=== PATIENT | female | born 1995 | race Caucasian/White ===

== ENCOUNTER 2019-12-23 18:47 | Inpatient (IN) | payer OTHER ==
[2019-12-23] MEDS ORDERED: DIPHTH,PERTUSS(ACELL),TET 0.5 ML DISP.SYRIN IM ONE ×2 (18:53→23:13)
--- NOTE | 2019-12-23 18:53 | PDOC ---
Rapid Medical Evaluation Time Seen by Provider: 12/23/19 18:49 Medical Evaluation: 12/23/19 18:49 I have performed a brief in-person evaluation of this patient. The patient presents with a chief complaint of: burn to R ankle/foot x 1 week Pertinent physical exam findings: large open blisters to R ankle with developing eschar, tachy to 127 I have ordered the following: tdap The patient will proceed to the ED for further evaluation. Discharge Disposition - Diagnosis Burn - Referrals - Patient Instructions - Post Discharge Activity
--- NOTE | 2019-12-23 22:03 | PDOC ---
*Physical Exam - Vital Signs Last Vital Signs Temp Pulse Resp BP Pulse Ox 99.3 F 127 H 20 112/72 100 12/23/19 18:57 12/23/19 18:57 12/23/19 18:57 12/23/19 18:57 12/23/19 18:57 ED Treatment Course - LABORATORY CBC & Chemistry Diagram: 12/23/19 22:15 12/23/19 22:15 Medical Decision Making - Medical Decision Making 12/23/19 22:03 Patient seen by the advanced practice provider under my supervision. Ancillary testing reviewed as necessary. I agree with plan as outlined by the advanced practice provider. Discharge - Discharge Information Problems reviewed: Yes Clinical Impression/Diagnosis: Burn Cellulitis Qualifiers: Site of cellulitis: extremity Site of cellulitis of extremity: lower extremity Laterality: right Qualified Code(s): L03.115 - Cellulitis of right lower limb Condition: Guarded - Follow up/Referral - Patient Discharge Instructions - Post Discharge Activity
[2019-12-23] MEDS ORDERED: CLINDAMYCIN 600MG PREMIX IVPB 600 MG/50 ML BAG IVPB ONE ×2 (22:08→23:13)
[2019-12-23] MEDS ORDERED: levETIRAcetam 500 MG TABLET (FP) PO ONE ×2 (22:10→23:13)
[2019-12-23] MEDS ORDERED: OXcarbazepine 300 MG/5 ML UNIT DOSE CUPS PO ONE (22:13)
--- NOTE | 2019-12-23 22:14 | PDOC ---
History of Present Illness - General Chief Complaint: SIRS, Suspected/Possible Stated Complaint: COLD SYMPTOMS/ BURN ON FEET Time Seen by Provider: 12/23/19 18:49 History Source: Patient Exam Limitations: No Limitations Past History - Travel Traveled outside of the country in the last 30 days: No Close contact w/someone who was outside of country & ill: No - Past Medical History Allergies/Adverse Reactions: Allergies Allergy/AdvReac Type Severity Reaction Status Date / Time No Known Allergies Allergy Verified 12/23/19 18:57 Home Medications: Ambulatory Orders Folic Acid - 1 mg PO DAILY 12/23/19 Levetiracetam [Keppra Xr -] 750 mg PO BID 12/23/19 Oxcarbazepine 600 mg PO DAILY 12/23/19 Oxcarbazepine 900 mg PO HS 12/23/19 Topiramate 100 mg PO DAILY 12/23/19 CVA: No COPD: No CHF: No Seizures: Yes - Psycho Social/Smoking Cessation Hx Smoking History: Never smoked Hx Alcohol Use: No Drug/Substance Use Hx: No Review of Systems - Review of Systems Able to Perform ROS?: Yes Comments:: 12/24/19 00:17 CONSTITUTIONAL: Absent: fever, chills, diaphoresis, generalized weakness, malaise, loss of appetite HEENT: Absent: rhinorrhea, nasal congestion, throat pain, throat swelling, difficulty swallowing, mouth swelling, ear pain, eye pain, visual Changes CARDIOVASCULAR: Absent: chest pain, loss of consciousness, palpitations, irregular heart rate, peripheral edema RESPIRATORY: Absent: cough, shortness of breath, dyspnea with exertion, orthopnea, wheezing, stridor, hemoptysis GASTROINTESTINAL: Absent: abdominal pain, abdominal distension, nausea, vomiting, diarrhea, constipation, melena, hematochezia GENITOURINARY: Absent: dysuria, frequency, urgency, hesitancy, hematuria, flank pain, genital pain MUSCULOSKELETAL: Present: Right foot pain absent: myalgia, arthralgia, joint swelling SKIN: Present: Burn absent: rash, itching, pallor HEMATOLOGIC/IMMUNOLOGIC: Absent: easy bleeding, easy bruising, lymphadenopathy, frequent infections ENDOCRINE: Absent: unexplained weight gain, unexplained weight loss, heat intolerance, cold intolerance NEUROLOGIC: Absent: headache, focal weakness or paresthesias, dizziness, unsteady gait, seizure, mental status changes, bladder or bowel incontinence PSYCHIATRIC: Absent: anxiety, depression, suicidal or homicidal ideation, hallucinations. Is the patient limited Bulgarian proficient: No *Physical Exam - Vital Signs Last Vital Signs Temp Pulse Resp BP Pulse Ox 99.3 F 127 H 20 112/72 100 12/23/19 18:57 12/23/19 18:57 12/23/19 18:57 12/23/19 18:57 12/23/19 18:57 - Physical Exam 12/24/19 00:17 GENERAL: Well developed, well nourished. Awake and alert. No acute distress. HEENT: Normocephalic, atraumatic. PERRLA, EOMI. No conjunctival pallor. Sclera are non- icteric. Moist mucous membranes. Oropharynx is clear. NECK: Supple. Full ROM. No JVD. Carotid pulses 2+ and symmetric, without bruits. No thyromegaly. No lymphadenopathy. CARDIOVASCULAR: Regular rate and rhythm. No murmurs, rubs, or gallops. Distal pulses are 2+ and symmetric. PULMONARY: No evidence of respiratory distress. Lungs clear to auscultation bilaterally. No wheezing, rales or rhonchi. ABDOMINAL: Soft. Non-tender. Non-distended. No rebound or guarding. No organomegaly. Normoactive bowel sounds. MUSCULOSKELETAL Normal range of motion at all joints. No bony deformities or tenderness. No CVA tenderness. EXTREMITIES: No cyanosis. No clubbing. No edema. No calf tenderness. SKIN: 3 cm round eschar formed area to the right lateral malleolus with overlying cellulitis. 3cm round ruptured blister to tothe plantar surface of the R foot again with overlying cellulitis. Patient also with multiple second-degree miles over the dorsal aspect of the right foot. The warm and dry. Normal capillary refill. No jaundice. NEUROLOGICAL: Alert, awake, appropriate. Cranial nerves 2-12 intact. No deficits to light touch and temperature in face, upper extremities and lower extremities. No motor deficits in the in face, upper extremities and lower extremities. Normoreflexic in the upper and lower extremities. Normal speech. Toes are down- going bilaterally. Gait is normal without ataxia. PSYCHIATRIC: Cooperative. Good eye contact. Appropriate mood and affect. ED Treatment Course - LABORATORY CBC & Chemistry Diagram: 12/23/19 22:15 12/23/19 22:15 Medical Decision Making - Medical Decision Making 12/24/19 00:24 Patient is a 24-year-old female with past medical history of epilepsy, presents to the ER today with pain to the right foot. She states approximately 1 week ago she dropped hot water on her foot while cooking. She did not seek medical attention at that time. She states that the foot has gotten more painful and it hurts to walk at this time. She notes that she also has multiple blisters on her foot that are draining. Denies fevers, chills, numbness and tingling and weakness to the affected extremity. A/P: Cellulitis/miles See exam findings for locations of the miles to her right foot. There is overlying cellulitis to the miles. Leukocytosis to 19. Clindamycin given in the ER. Patient on multiple seizure medications. X-ray shows no gas, potential osteo in the 1st metatarsal. Tetanus updated Admit for IV abx, wound care. Hospitalist paged. No PCP. Pt follow with neuro for her epilepsy Discharge - Discharge Information Problems reviewed: Yes Clinical Impression/Diagnosis: Burn Cellulitis Qualifiers: Site of cellulitis: extremity Site of cellulitis of extremity: lower extremity Laterality: right Qualified Code(s): L03.115 - Cellulitis of right lower limb Condition: Guarded - Admission Yes - Follow up/Referral - Patient Discharge Instructions - Post Discharge Activity
[2019-12-23 22:47] LABS: BASO % 0.3 % (0-2.0); EOS % 0.1 % (0-4.5); HEMATOCRIT 41.1 % (32.4-45.2); HEMOGLOBIN 13.9 GM/dL (10.7-15.3); LYMPH % 6.2 % (8-40); MCH 29.7 pg (25.7-33.7); MCHC 33.8 g/dl (32.0-36.0); MEAN CELL VOLUME 87.9 fl (80-96); MEAN PLT VOLUME 9.7 fl (7.5-11.1); MONO % 8.1 % (3.8-10.2); NEUT % 85.3 % (42.8-82.8); PLATELET COUNT 189 K/MM3 (134-434); RBC 4.68 M/mm3 (3.60-5.2); RDW 13.9 % (11.6-15.6); WHITE BLOOD COUNT 19.5 K/mm3 (4.0-10.0)
[2019-12-23] MEDS ORDERED: TOPIRAMATE 25 MG TABLET (FP) ONE (23:13)
[2019-12-23 23:36] LABS: ALBUMIN 4.2 g/dl (3.4-5.0); BILIRUBIN,TOTAL 0.6 mg/dL (0.2-1); BLOOD UREA NITROGEN 14.3 mg/dL (7-18); CALCIUM 9.6 mg/dL (8.5-10.1); CREATININE 0.7 mg/dL (0.55-1.3); POTASSIUM 3.9 mmol/L (3.5-5.1); TOT PROT 8.2 g/dl (6.4-8.2)
[2019-12-23 23:40] LABS: EPI CELLS 19.8 /HPF (0-5/HPF); HYALINE CASTS 66 /lpf (0-8); PH,URINE 5.5 (5.0-8.0); URINE APPEARANCE CLOUDY; URINE BACTERIA 63.1 /hpf (NEGATIVE); URINE BILIRUBIN NEGATIVE (NEGATIVE); URINE COLOR YELLOW; URINE GLUCOSE (UA) NEGATIVE (NEGATIVE); URINE KETONE 4+ (NEGATIVE); URINE LEUK ESTERASE 1+ (NEGATIVE); URINE NITRITE NEGATIVE (NEGATIVE); URINE PROTEIN 1+ (NEGATIVE); URINE RBC 2 /hpf (0-4); URINE UROBILINOGEN 0.2 mg/dL (0.2-1.0); URINE WBC 8 /hpf (0-5)
--- NOTE | 2019-12-24 01:25 | PN ---
Teaching Attending Note Name of Resident: Renita Vaughan ATTENDING PHYSICIAN STATEMENT I saw and evaluated the patient. I reviewed the resident's note and discussed the case with the resident. I agree with the resident's findings and plan as documented. SUBJECTIVE: 25-year-old woman with a history of epilepsy presenting after having dropped hot water on her right foot 2 weeks ago while cooking. Did not seek medical attention at that time, since then has developed blisters on her right ankle prompting her to seek medical attention. Her foot has gotten more painful since that time and is difficult for her to ambulate. Denied fevers or chills, numbness or tingling.Status post Tdap in the emergency room. OBJECTIVE: Last Vital Signs Temp Pulse Resp BP Pulse Ox 99.3 F 127 H 20 112/72 100 12/23/19 18:57 12/23/19 18:57 12/23/19 18:57 12/23/19 18:57 12/23/19 18:57 On physical exam patient was drowsy appearing but answering questions and following commands, right ankle was cellulitic with blisters, appeared to be third-degree miles from scald injury. Right lateral malleolus skin is eroded and soft tissues are visible, possibly bone. Multiple blisters are visible on right foot, cellulitis is evident. Diminished sensation over entire foot, DP pulse 2+. Able to move foot. Abnormal Lab Results 12/23/19 12/23/19 22:15 23:27 WBC 19.5 H Absolute Neuts (auto) 16.6 H Neutrophils % 85.3 H Lymphocytes % 6.2 L Urine Protein 1+ H Urine Ketones 4+ H Ur Leukocyte Esterase 1+ H Imaging studies reviewed ASSESSMENT AND PLAN: 24-year-old woman with sepsis secondary to scald injury to right foot from spilling boiling water. Suspect possible third-degree miles, should rule out underlying osteomyelitis as blisters appear deep and underlying soft tissues and possible bone are visible. Admit to [facility] Blood cultures x2 Follow-up official read of right foot x-ray Send ESR and CRP Start empiric antibiotic coverage with Zosyn and vancomycin Podiatry consult Infectious disease consult Send lactic acid Motrin for pain control #Seizure disorder Continue with home dose AEDsox carbamazepine, Keppra Exar, topiramate, Heparin subcutaneously for DVT prophylaxis. While patient was waiting in the emergency room she developed a fall from her stretcher, unwitnessed and hit her head. CT of head was ordered to rule out intracranial bleed. We will follow-up CT of head read. Will send antiepileptic drug levels as well as urine toxicology screen.
--- NOTE | 2019-12-24 01:55 | HP ---
CHIEF COMPLAINT: right foot wound PCP: none HISTORY OF PRESENT ILLNESS: 24 y.o. F H epilepsy presented for RLE wound. Patient states 2 weeks ago she was carrying a pot of boiling water when it fell onto her right foot. She has not been in significant pain but has been developing a wound on her R foot so decided to come to the hospital. Patient notes the wound has been increasing in size; she now has a wound on RLE lateral malleolus, RLE ventral 1st metatarsal, and a developing blister on the distal portion of her R great toe. She also has a small wound on the distal aspect of her left upper etxremity 1st digit. She has not taken any medications at home to help with the pain. Patient is able to ambulate. She is afebrile. ER course was notable for: (1) leukocytosis 19.5 (2)tachcyardia (3) Recent Travel: denies PAST MEDICAL HISTORY: epilepsy PAST SURGICAL HISTORY: denies Social History: Smoking: denies Alcohol:denies Drugs: denies Allergies No Known Allergies Allergy (Verified 12/23/19 18:57) HOME MEDICATIONS: Home Medications Medication Instructions Recorded Folic Acid - 1 mg PO DAILY 12/23/19 Levetiracetam [Keppra Xr -] 750 mg PO BID 12/23/19 Oxcarbazepine 600 mg PO DAILY 12/23/19 Oxcarbazepine 900 mg PO HS 12/23/19 Topiramate 100 mg PO DAILY 12/23/19 REVIEW OF SYSTEMS CONSTITUTIONAL: Absent: fever, chills, diaphoresis, generalized weakness, malaise, loss of appetite, weight change HEENT: Absent: rhinorrhea, nasal congestion, throat pain, throat swelling, difficulty swallowing, mouth swelling, ear pain, eye pain, visual changes CARDIOVASCULAR: Absent: chest pain, syncope, palpitations, irregular heart rate, lightheadedness , peripheral edema RESPIRATORY: Absent: cough, shortness of breath, dyspnea with exertion, orthopnea, wheezing, stridor, hemoptysis GASTROINTESTINAL: Absent: abdominal pain, abdominal distension, nausea, vomiting, diarrhea, constipation, melena, hematochezia GENITOURINARY: Absent: dysuria, frequency, urgency, hesitancy, hematuria, flank pain, genital pain MUSCULOSKELETAL: Absent: myalgia, arthralgia, joint swelling, back pain, neck pain SKIN: Absent: rash, itching, pallor HEMATOLOGIC/IMMUNOLOGIC: Absent: easy bleeding, easy bruising, lymphadenopathy, frequent infections ENDOCRINE: Absent: unexplained weight gain, unexplained weight loss, heat intolerance, cold intolerance NEUROLOGIC: Absent: headache, focal weakness or paresthesias, dizziness, unsteady gait, seizure, mental status changes, bladder or bowel incontinence PSYCHIATRIC: Absent: anxiety, depression, suicidal or homicidal ideation, hallucinations. PHYSICAL EXAMINATION Vital Signs - 24 hr 12/23/19 18:57 Temperature 99.3 F Pulse Rate 127 H Respiratory 20 Rate Blood Pressure 112/72 O2 Sat by Pulse 100 Oximetry (%) GENERAL: Awake, alert, and fully oriented, in no acute distress. HEENT: NCAT sclera clear MMM LUNGS: Breath sounds equal, clear to auscultation bilaterally. No wheezes, and no crackles. No accessory muscle use. HEART: tachycardic, normal S1 and S2 without murmurs ABDOMEN: Soft, nontender, not distended, + bowel sounds MUSCULOSKELETAL: Full ROM all joints EXTREMITIES: 2+ pulses intact b/l UE & LE. On R lateral malleolus, 1-2x3cm and 1 - 1z2cm wound, clear centers w/ blackened tissue surrounding edges, non purulent , slightly bloody drainage. On ventral R 1st metatarsal, 2-3 ~0.5cm wounds, non purulent non bloody. R 1st toe distal blister. On L 1st UE digit, distal healing wound noted, non bloody non purulent. NEURO: Decr sensation to RLE @ dorsal foot Laboratory Results - last 24 hr 12/23/19 12/23/19 12/23/19 22:15 22:15 23:27 WBC 19.5 H RBC 4.68 Hgb 13.9 Hct 41.1 MCV 87.9 MCH 29.7 MCHC 33.8 RDW 13.9 Plt Count 189 MPV 9.7 Absolute Neuts (auto) 16.6 H Neutrophils % 85.3 H Lymphocytes % 6.2 L Monocytes % 8.1 Eosinophils % 0.1 Basophils % 0.3 Nucleated RBC % 0 Sodium 136 Potassium 3.9 Chloride 103 Carbon Dioxide 23 Anion Gap 9 BUN 14.3 Creatinine 0.7 Est GFR (CKD-EPI)AfAm 138.59 Est GFR (CKD-EPI)NonAf 119.58 Random Glucose 104 Calcium 9.6 Total Bilirubin 0.6 AST 17 ALT 21 Alkaline Phosphatase 73 Total Protein 8.2 Albumin 4.2 Urine Color Urine Appearance Urine pH Ur Specific [place] Urine Protein Urine Glucose (UA) Urine Ketones Urine Blood Urine Nitrite Urine Bilirubin Urine Urobilinogen Ur Leukocyte Esterase Urine WBC (Auto) Urine RBC (Auto) Urine Casts (Auto) U Pathogenic Cast Auto U Epithel Cells (Auto) U Sm Round Cell (Auto) Urine Bacteria (Auto) Urine HCG, Qual Negative 12/23/19 23:27 WBC RBC Hgb Hct MCV MCH MCHC RDW Plt Count MPV Absolute Neuts (auto) Neutrophils % Lymphocytes % Monocytes % Eosinophils % Basophils % Nucleated RBC % Sodium Potassium Chloride Carbon Dioxide Anion Gap BUN Creatinine Est GFR (CKD-EPI)AfAm Est GFR (CKD-EPI)NonAf Random Glucose Calcium Total Bilirubin AST ALT Alkaline Phosphatase Total Protein Albumin Urine Color Yellow Urine Appearance Cloudy Urine pH 5.5 Ur Specific [place] 1.033 Urine Protein 1+ H Urine Glucose (UA) Negative Urine Ketones 4+ H Urine Blood Negative Urine Nitrite Negative Urine Bilirubin Negative Urine Urobilinogen 0.2 Ur Leukocyte Esterase 1+ H Urine WBC (Auto) 8 Urine RBC (Auto) 2 Urine Casts (Auto) 66 U Pathogenic Cast Auto Negative U Epithel Cells (Auto) 19.8 U Sm Round Cell (Auto) Negative Urine Bacteria (Auto) 63.1 Urine HCG, Qual ASSESSMENT/PLAN: 24 y.o .F H epilepsy presenting for R foot wound #Sepsis 2/2 RLE cellulitis -Afebrile, + leukocytosis, tachcyardic-- f/u AM labs, monitor hr -F/u R foot X-ray final read -no probe to bone -f/u RLE MRI to r/o osteomyelitis; f/u L hand XR -s/p 1 dose clindamycin; adding vanc, zosyn-- noted zosyn should be used cautiously w/ seizure disorder, benefits outweigh risks of this medication. Will monitor closely. -blood cultures sent -f/u wound culture -ESR, CRP elevated -RLE cleaned w/ saline, wrapped w/ kerlex -motrin for pain control -ID consulted-- Dr Ospina -Wound care consulted-- Dr. uGzman -podiatry #Epilepsy -continue home AEDs -seizure & fall precautions -f/u keppra, topiramate levels -patient had a fall in ED; ct head & c-spine negative #FEN -no fluids -replete lytes as needed -regular diet #DVT PPX -heparin sq #Dispo admit to med surg Visit type - Emergency Visit Emergency Visit: Yes ED Registration Date: 12/24/19 Care time: The patient presented to the Emergency Department on the above date and was hospitalized for further evaluation of their emergent condition. - New Patient This patient is new to me today: Yes Date on this admission: 12/24/19 - Critical Care Critical Care patient: No ATTENDING PHYSICIAN STATEMENT I saw and evaluated the patient. I reviewed the resident's note and discussed the case with the resident. I agree with the resident's findings and plan as documented. SUBJECTIVE: OBJECTIVE: ASSESSMENT AND PLAN:
[2019-12-24] MEDS ORDERED: IBUPROFEN 600 MG TABLET (FP) PO PRN (01:57)
[2019-12-24] MEDS ORDERED: CLINDAMYCIN 600MG PREMIX IVPB 600 MG/50 ML BAG IVPB SCH ×3 (03:00→10:00)
[2019-12-24 04:18] LABS: COCAINE, UR NEGATIVE ng/ml (CUTOFF=300); METHADONE, UR NEGATIVE ng/ml (CUTOFF=300); OPIATES, URI NEGATIVE ng/ml (CUTOFF=300); PHENCYCLIDINE,URINE NEGATIVE ng/ml (CUTOFF=25); URINE AMPHETAMINES NEGATIVE ng/ml (CUTOFF=500); URINE BARBITURATES NEGATIVE ng/ml (CUTOFF=200); URINE BENZODIAZEPINES NEGATIVE ng/ml (CUTOFF=200)
[2019-12-24] MEDS ORDERED: VANCOMYCIN 1 GM in D5W (PRE-DOCKED) 1,000 MG/250 ML IVPB SCH ×2 (05:00→22:00)
[2019-12-24] MEDS ORDERED: PIPERACILLIN/TAZOB 3.375 GM 3.375 GM/50 ML BAG IVPB ONE (05:18)
[2019-12-24] MEDS: PIPERACILLIN/TAZOB 3.375 GM 3.375 GM in DEXTROSE 5%-WATER - 50 ML IVPB SCH ×2 (05:24→09:45)
[2019-12-24 07:09] LABS: ALBUMIN 3.7 g/dl (3.4-5.0); BILIRUBIN,TOTAL 0.8 mg/dL (0.2-1); BLOOD UREA NITROGEN 11.9 mg/dL (7-18); CALCIUM 8.8 mg/dL (8.5-10.1); CREATININE 0.6 mg/dL (0.55-1.3); TOT PROT 7.3 g/dl (6.4-8.2)
[2019-12-24 07:11] LABS: BASO % 0.4 % (0-2.0); HEMATOCRIT 38.5 % (32.4-45.2); LYMPH % 7.3 % (8-40); MCH 29.2 pg (25.7-33.7); MCHC 33.7 g/dl (32.0-36.0); MEAN CELL VOLUME 86.8 fl (80-96); MEAN PLT VOLUME 9.9 fl (7.5-11.1); MONO % 8.6 % (3.8-10.2); NEUT % 83.7 % (42.8-82.8); PLATELET COUNT 159 K/MM3 (134-434); RBC 4.44 M/mm3 (3.60-5.2); RDW 13.4 % (11.6-15.6); WHITE BLOOD COUNT 18.4 K/mm3 (4.0-10.0)
[2019-12-24 07:36] LABS: POTASSIUM 2.9 mmol/L (3.5-5.1)
--- NOTE | 2019-12-24 08:09 | PN ---
Physical Exam: SUBJECTIVE: Patient seen and examined. Pt is very drowsy and sleepy. Mental status is poor but pt is AOx3. x1 episode of bilious vomit. Denies any seizures overnight. Denies f/c/sob/cp/abdominal pain. OBJECTIVE: Last Vital Signs Temp Pulse Resp BP Pulse Ox 98.9 F 78 17 115/75 98 12/24/19 07:03 12/24/19 07:03 12/24/19 07:03 12/24/19 07:03 12/24/19 07:03 GENERAL: Awake, alert, and fully oriented, appear very somnolent, decreased responsiveness, appears to sleep every few minutes, mental status poor. LUNGS: CTAB HEART: tachycardic, normal S1 and S2 without murmurs ABDOMEN: Soft, nontender, not distended, + bowel sounds EXTREMITIES: 2+ pulses intact b/l UE & LE. On R lateral malleolus, 1-2x3cm and 1 - 1z2cm wound, clear centers w/ blackened tissue surrounding edges, non purulent , slightly bloody drainage. On ventral R 1st metatarsal, 2-3 ~0.5cm wounds, non purulent non bloody. R 1st toe distal blister. On L 1st UE digit, distal healing wound noted, non bloody non purulent. NEURO: PERRLA, CN2-12 intact. Strength weak overall, sensation intact Laboratory Results - last 24 hr CBC,CMP WBC 18.4 K/mm3 (4.0-10.0) H 12/24/19 06:10 RBC 4.44 M/mm3 (3.60-5.2) 12/24/19 06:10 Hgb 13.0 GM/dL (10.7-15.3) 12/24/19 06:10 Hct 38.5 % (32.4-45.2) 12/24/19 06:10 MCV 86.8 fl (80-96) 12/24/19 06:10 MCH 29.2 pg (25.7-33.7) 12/24/19 06:10 MCHC 33.7 g/dl (32.0-36.0) 12/24/19 06:10 RDW 13.4 % (11.6-15.6) 12/24/19 06:10 Plt Count 159 K/MM3 (134-434) 12/24/19 06:10 MPV 9.9 fl (7.5-11.1) 12/24/19 06:10 Absolute Neuts (auto) 15.4 K/mm3 (1.5-8.0) H 12/24/19 06:10 Neutrophils % 83.7 % (42.8-82.8) H 12/24/19 06:10 Lymphocytes % 7.3 % (8-40) L 12/24/19 06:10 Monocytes % 8.6 % (3.8-10.2) 12/24/19 06:10 Eosinophils % 0.0 % (0-4.5) D 12/24/19 06:10 Basophils % 0.4 % (0-2.0) 12/24/19 06:10 Nucleated RBC % 0 % (0-0) 12/24/19 06:10 ESR 70 mm/hr (0-20) H 12/24/19 02:33 Sodium 133 mmol/L (136-145) L 12/24/19 06:10 Potassium 2.9 mmol/L (3.5-5.1) L* 12/24/19 06:10 Chloride 102 mmol/L (98-107) 12/24/19 06:10 Carbon Dioxide 21 mmol/L (21-32) 12/24/19 06:10 Anion Gap 9 MMOL/L (8-16) 12/24/19 06:10 BUN 11.9 mg/dL (7-18) 12/24/19 06:10 Creatinine 0.6 mg/dL (0.55-1.3) 12/24/19 06:10 Est GFR (CKD-EPI)AfAm 145.80 12/24/19 06:10 Est GFR (CKD-EPI)NonAf 125.80 12/24/19 06:10 Random Glucose 138 mg/dL (74-106) H 12/24/19 06:10 Lactic Acid 0.9 mmol/L (0.4-2.0) 12/24/19 02:33 Calcium 8.8 mg/dL (8.5-10.1) 12/24/19 06:10 Total Bilirubin 0.8 mg/dL (0.2-1) 12/24/19 06:10 AST 12 U/L (15-37) L 12/24/19 06:10 ALT 21 U/L (13-61) 12/24/19 06:10 Alkaline Phosphatase 66 U/L (45-117) 12/24/19 06:10 C-Reactive Protein 16.8 MG/DL (0.00-0.3) H 12/24/19 02:33 Total Protein 7.3 g/dl (6.4-8.2) 12/24/19 06:10 Albumin 3.7 g/dl (3.4-5.0) 12/24/19 06:10 Active Medications Current Medications Bacitracin (Bacitracin -) 1 applic TP DAILY [facility] Folic Acid (Folic Acid -) 1 mg PO DAILY [facility] Piperacillin Sod/Tazobactam (Sod 3.375 gm/ Dextrose) 50 mls @ 100 mls/hr IVPB Q6H-IV [facility]; Protocol Stop: 12/24/19 21:29 Last Admin: 12/24/19 05:24 Dose: 100 mls/hr Piperacillin Sod/Tazobactam (Sod 3.375 gm/ Dextrose) 50 mls @ 100 mls/hr IVPB Q6H-IV [facility]; Protocol Potassium Chloride 30 meq/ (Sodium Chloride) 1,015 mls @ 100 mls/hr IVPB ASDIR [facility] Ibuprofen (Motrin -) 600 mg PO Q4H PRN PRN Reason: FEVER Levetiracetam (Keppra Xr -) 750 mg PO BID [facility] Oxcarbazepine (Trileptal -) 600 mg PO DAILY [facility] Oxcarbazepine (Trileptal -) 900 mg PO HS [facility] Potassium Chloride (K-Dur -) 40 meq PO ONCE ONE Stop: 12/24/19 07:57 Silver Sulfadiazine (Silvadene -) 1 applic TP DAILY [facility] Topiramate (Topamax -) 100 mg PO DAILY [facility] Vancomycin HCl (Vancomycin (Pre-Docked)) 1,000 mg IVPB Q24H [facility]; Protocol Home Medications Medication Instructions Recorded Folic Acid - 1 mg PO DAILY 12/23/19 Levetiracetam [Keppra Xr -] 750 mg PO BID 12/23/19 Oxcarbazepine 600 mg PO DAILY 12/23/19 Oxcarbazepine 900 mg PO HS 12/23/19 Topiramate 100 mg PO DAILY 12/23/19 ASSESSMENT/PLAN: 24 y/o F PMH epilepsy presented to the ED c/o of right foot wounds 2/2 to dropping hot boiling water on herself is admitted for sepsis vs meningitis r/o #Sepsis likely 2/2 RLE cellulitis Febrile, + leukocytosis+ tachcyardic Pt is somnolent and very drowsy need to r/o meningitis, no nuchal rigidity on exam LP done- CSF cultures negative for meningitis R foot X-ray final read- soft tissue swelling, no signs of air. RLE MRI to r/o osteomyelitis L hand XR- no acute findings Seizure precautions neuro checks EEG ordered TANNA, Chlam/GC ordered EBV, HCV, HIV, Flu, LDH, RPR, RA factor Urine legionella Lipase ordered Vanc + Ceftriaxone + Clindamycin+ Acyclovir Dexamethasone 10 once LR at 125 blood cultures- one bottle positive gram+ cocci in chains f/u wound culture ESR elevated RLE cleaned w/ saline, wrapped w/ kerlex ID consulted-- Dr Ospina appreciated consult Wound care consulted-- Dr. Guzman Podiatry ICU consulted Neuro consulted- Discussed with Dr. Lane, recom low suspicion for meningitis. Will work up for likely causes such as autoimmune or thyroid disease #Epilepsy continue home AEDs- Keppra seizure & fall precautions f/u keppra, topiramate levels #Hypokalemia KCl repletion BMP for 6 pm- f/u #Low TSH Free T4 and T3 ordered- will f/u #N/v bilious vomit Protonix 40 IV Zofran 4 mg now- if still nauseous can icnrease to Zofran 8mg, if still nauseous consider Reglan. Abd CT pending #FEN LR 125 replete lytes as needed NPO #DVT PPX #Dispo monitor overnight in ICU, monitor mental status, cont abx, cont keppra, f/u with pt's family Discussed with Pt's friends but will wait for her for update of her status Marely- [phone] Visit type - Emergency Visit Emergency Visit: Yes ED Registration Date: 12/24/19 Care time: The patient presented to the Emergency Department on the above date and was hospitalized for further evaluation of their emergent condition. - New Patient This patient is new to me today: Yes Date on this admission: 12/24/19 - Critical Care Critical Care patient: No - Discharge Referral Referred to [facility] No ATTENDING PHYSICIAN STATEMENT I saw and evaluated the patient. I reviewed the resident's note and discussed the case with the resident. I agree with the resident's findings and plan as documented. SUBJECTIVE: OBJECTIVE: ASSESSMENT AND PLAN:
[2019-12-24] MEDS ORDERED: POTASSIUM CHLORIDE TABS 20 MEQ TABLET.ER (FP) PO ONE ×2 (08:30→09:10)
[2019-12-24] MEDS ORDERED: POTASSIUM CHLORIDE 30 MEQ in SODIUM CHLORIDE 1,000 ML IVPB SCH (09:00)
[2019-12-24] MEDS ORDERED: ACETAMINOPHEN 1000 MG/100 ML VIAL (NON FORMULARY) IVPB ONE (09:37)
[2019-12-24] MEDS ORDERED: ACETAMINOPHEN INJECTION 100 ML IVPB ONE (09:49)
[2019-12-24] MEDS ORDERED: CLINDAMYCIN PHOSPHATE 600 MG/4 ML VIAL ONE (09:49)
[2019-12-24] MEDS ORDERED: TOPIRAMATE 100 MG TABLET PO SCH (10:00)
[2019-12-24] MEDS ORDERED: levETIRAcetam XR 750 MG TAB PO SCH (10:00)
[2019-12-24] MEDS ORDERED: OXcarbazepine 300 MG TABLET (UD) PO SCH ×2 (10:00→22:00)
[2019-12-24] MEDS ORDERED: CEFTRIAXONE 2 GM-D5W BAG 2 GM/50 ML BAG IVPB SCH (10:00)
[2019-12-24] MEDS ORDERED: BACITRACIN 15 GM TUBE TOPICAL OINTMENT TP SCH (10:00)
[2019-12-24] MEDS ORDERED: FOLIC ACID 1 MG TABLET (FP) PO SCH (10:00)
[2019-12-24] MEDS: SILVER SULFADIAZINE 1% TOP CREAM 50 GM JAR TP SCH (11:16)
--- NOTE | 2019-12-24 11:36 | CONSULT ---
Consult - text type - Consultation Consultation Note: 24 y/o female seen in the ER with complaint of spiling hot boiling water on foot roughly 1-2 weeks ago. History taken from chart as patient is not communicable at this time. Per Resident patient presented yesterday with complaints of the burn. Grossly non verbal at this time. O: Right foot with mild erythema surrounding escars on the lateral aspect of the foot, there is christina seropurlent drainage from a superficial healing ulceration on plantar aspect, no signs of abscess, no streaking, no gross redness xrays: no signs of gas in the soft tissue A: s/p miles right foot; healing eschar Mild cellultiis P: Evaluated and reviewed discussed with resident; I doubt overall symptoms is from the foot xrays negative for any acute findings can get MR is symptoms persist Would swap to vanc/zosyn for more empiric coverage if worried of infection from the foot consult ID wound redressed with xeroform to all burn sites Silvadene ordered; once available can start silvadene/adaptic/dsd to the foot daily. Will follow.
[2019-12-24 11:57] LABS: MAGNESIUM 1.9 mg/dL (1.8-2.4)
[2019-12-24] MEDS ORDERED: levETIRAcetam 250 MG TABLET PO ONE (12:15)
[2019-12-24] MEDS ORDERED: SODIUM CHLORIDE 1,973 ML IV ONE (12:27)
[2019-12-24] MEDS ORDERED: MAGNESIUM 1GM/D5W - 1 GM/100 ML IVPB IVPB ONE (12:45)
[2019-12-24] MEDS ORDERED: levETIRAcetam 500 MG/5 ML INJECTION VIAL IVPB ONE ×2 (12:45→13:06)
[2019-12-24] MEDS ORDERED: DEXAMETHASONE SOD PHOSPHATE 10 MG/1 ML VIAL IVPUSH ONE (12:47)
[2019-12-24] MEDS ORDERED: CEFTRIAXONE 2 GM/100 ML BAG IVPB ONE (13:07)
--- NOTE | 2019-12-24 13:42 | PDOC ---
*Physical Exam - Vital Signs Last Vital Signs Temp Pulse Resp BP Pulse Ox 102.0 F H 78 17 115/75 98 12/24/19 09:45 12/24/19 07:03 12/24/19 07:03 12/24/19 07:03 12/24/19 07:03 ED Treatment Course - LABORATORY CBC & Chemistry Diagram: 12/24/19 06:10 12/24/19 06:10 - ADDITIONAL ORDERS Additional order review: 12/23/19 22:15 Blood Culture - Preliminary Blood - Peripheral Venous Pending Organism 12/23/19 22:15 RBC 4.68 MCV 87.9 MCHC 33.8 RDW 13.9 MPV 9.7 Neutrophils % 85.3 H Lymphocytes % 6.2 L Monocytes % 8.1 Eosinophils % 0.1 Basophils % 0.3 - Medications Given in the ED: ED Medications Discontinued Medications Generic Name Dose Route Start Last Admin Trade Name Freq PRN Reason Stop Dose Admin Acetaminophen 1,000 mg 12/24/19 09:37 12/24/19 09:58 Ofirmev Injection - IVPB 12/24/19 09:38 1,000 mg ONCE ONE Administration Bacitracin 1 applic 12/24/19 10:00 12/24/19 11:16 Bacitracin - TP 1 applic DAILY WALTER Administration Diphtheria/Tetanus/Acell Pertussis 0.5 ml 12/23/19 18:53 12/23/19 23:28 Boostrix - IM 12/23/19 18:54 0.5 ml .ONCE ONE Administration Folic Acid 1 mg 12/24/19 10:00 12/24/19 11:16 Folic Acid - PO 1 mg DAILY WALTER Administration Clindamycin Phosphate 600 mg in 50 mls @ 100 mls/hr 12/23/19 22:08 12/23/19 23:27 Cleocin 600 Mg Premix Ivpb - IVPB 12/23/19 22:37 100 mls/hr ONCE ONE Administration Piperacillin Sod/Tazobactam 50 mls @ 100 mls/hr 12/24/19 04:00 12/24/19 09:45 Sod 3.375 gm/ Dextrose IVPB 12/24/19 21:29 Not Given Q6H-IV WALTER Protocol Potassium Chloride 30 meq/ 1,015 mls @ 100 mls/hr 12/24/19 09:00 12/24/19 10: 30 Sodium Chloride IVPB 100 mls/hr Q10H WALTER Administration Clindamycin Phosphate 600 mg in 50 mls @ 100 mls/hr 12/24/19 09:30 12/24/19 10:45 Cleocin 600 Mg Premix Ivpb - IVPB 100 mls/hr Q6H-IV WALTER Administration Protocol Levetiracetam 750 mg 12/23/19 22:10 12/23/19 23:27 Keppra - PO 12/23/19 22:11 Not Given ONCE ONE Levetiracetam 750 mg 12/24/19 10:00 12/24/19 11:16 Keppra Xr - PO 750 mg BID WALTER Administration Levetiracetam 750 mg 12/24/19 12:15 12/24/19 13:33 Keppra - PO 12/24/19 12:16 Not Given ONCE ONE Levetiracetam 1,000 mg 12/24/19 12:45 12/24/19 13:25 Keppra Injection - IVPB 12/24/19 12:46 1,000 mg ONCE ONE Administration Oxcarbazepine 900 mg 12/23/19 22:13 12/23/19 23:28 Trileptal PO 12/23/19 22:14 Not Given ONCE ONE Potassium Chloride 40 meq 12/24/19 08:30 12/24/19 09:15 K-Dur - PO 12/24/19 08:31 40 meq ONCE ONE Administration Vancomycin HCl 1,000 mg 12/24/19 05:00 12/24/19 05:52 Vancomycin (Pre-Docked) IVPB 12/24/19 05:01 1,000 mg Q24H WALTER Administration Protocol Medical Decision Making - Medical Decision Making 12/24/19 13:40 LP done for worsening mental status and concern for meningitis. Patient admitted. Inpatient team aware. Discharge - Discharge Information Problems reviewed: Yes Clinical Impression/Diagnosis: Burn Cellulitis Qualifiers: Site of cellulitis: extremity Site of cellulitis of extremity: lower extremity Laterality: right Qualified Code(s): L03.115 - Cellulitis of right lower limb AMS (altered mental status) Qualifiers: Altered mental status type: unspecified Qualified Code(s): R41.82 - Altered mental status, unspecified Condition: Guarded - Admission Yes - Follow up/Referral - Patient Discharge Instructions - Post Discharge Activity Procedures - Lumbar Puncture Indication: Meningitis CT Scan: Yes Betadine Prep: No (Chlorhexidine) Position: Right lateral decubitus Site: L4-L51 Local Anesthesia: 1% Lidocaine with epi Volume(ml): 5 Lumbar Puncture Kit: Adult Opening Pressure(mmHg): 19 Traumatic Tap: Yes Tubes Obtained: 4 Clear Fluid: Yes Complications: No
--- NOTE | 2019-12-24 13:50 | PN ---
Teaching Attending Note Name of Resident: John Mclean ATTENDING PHYSICIAN STATEMENT I saw and evaluated the patient. I reviewed the resident's note and discussed the case with the resident. I agree with the resident's findings and plan as documented. Patient experienced interval decompensation this morning with markedly altered mental status still responsive to painful stimuli but awake alert and oriented only to 1. She did not have positive meningeal signs but was persistently tachycardic and running low-grade fevers. Due to this, LP was completed by ER staff. Opening pressures reported to me as normal and CSF was clear, pending studies. Empiric meningitis coverage is started and the case was discussed with infectious disease. We feel that due to the patient's mental status and risk of severe illness with potential bacteremia versus contamination with 1 out of 2 tubes of blood cultures positive for gram-positive cocci, we will go ahead and transfer to the ICU if accepted after evaluation. She was given dexamethasone per meningitis protocol. She has 2 peripheral IVs. She is hemodynamically stable in terms of her blood pressure but this could become tenuous if indeed the sepsis worsens. Furthermore we will expound upon the overall work-up with ID work-up as well as baseline neurologic labs as well as assessing her endocrine function and for underlying autoimmune disease. Could not attempt to review of systems due to her underlying mentation VS, labs, imaging reviewed NAD, AAOx1,Slightly toxic appearing RRR s1/2 no mgr Normal muscle tone, moves all 5 extremities with normal apparent strength, Responds to painful stimuli but not verbal stimuli and is lethargic Neck is supple, trachea midline, no moe LN Lungs CTAB with sym expansion NT ND +BS no moe organomegaly CN2-12 wnl; no FND NC AT EOMI PERRLA Due to mentation psychological assessment could not be completed Foot cellulitis appears relatively mild, noted podiatry input UA results noted, follow-up culture. May be due to dehydration Canceling MRI of the foot, no free air on x-ray. Low risk for cellulitis and ESR may have other etiology especially given neurologic function. If symptoms persist we can go ahead and reimage once she is stable Microbiology 12/23/19 22:15 Blood Culture - Preliminary Blood - Peripheral Venous Pending Organism Laboratory Tests 12/23/19 12/23/19 12/23/19 22:15 22:15 23:27 WBC 19.5 H RBC 4.68 Hgb 13.9 Hct 41.1 MCV 87.9 MCH 29.7 MCHC 33.8 RDW 13.9 Plt Count 189 MPV 9.7 Absolute Neuts (auto) 16.6 H Neutrophils % 85.3 H Lymphocytes % 6.2 L Monocytes % 8.1 Eosinophils % 0.1 Basophils % 0.3 Nucleated RBC % 0 ESR Sodium 136 Potassium 3.9 Chloride 103 Carbon Dioxide 23 Anion Gap 9 BUN 14.3 Creatinine 0.7 Est GFR (CKD-EPI)AfAm 138.59 Est GFR (CKD-EPI)NonAf 119.58 Random Glucose 104 Lactic Acid Calcium 9.6 Phosphorus Magnesium Total Bilirubin 0.6 AST 17 ALT 21 Alkaline Phosphatase 73 C-Reactive Protein Total Protein 8.2 Albumin 4.2 Urine Color Urine Appearance Urine pH Ur Specific [place] Urine Protein Urine Glucose (UA) Urine Ketones Urine Blood Urine Nitrite Urine Bilirubin Urine Urobilinogen Ur Leukocyte Esterase Urine WBC (Auto) Urine RBC (Auto) Urine Casts (Auto) U Pathogenic Cast Auto U Epithel Cells (Auto) U Sm Round Cell (Auto) Urine Bacteria (Auto) Urine HCG, Qual Negative Opiates Screen Methadone Screen Barbiturate Screen Phencyclidine Screen Ur Amphetamines Screen MDMA (Ecstasy) Screen Benzodiazepines Screen Cocaine Screen U Marijuana (THC) Screen 12/23/19 12/24/19 12/24/19 23:27 02:33 02:33 WBC RBC Hgb Hct MCV MCH MCHC RDW Plt Count MPV Absolute Neuts (auto) Neutrophils % Lymphocytes % Monocytes % Eosinophils % Basophils % Nucleated RBC % ESR 70 H Sodium Potassium Chloride Carbon Dioxide Anion Gap BUN Creatinine Est GFR (CKD-EPI)AfAm Est GFR (CKD-EPI)NonAf Random Glucose Lactic Acid Calcium Phosphorus Magnesium Total Bilirubin AST ALT Alkaline Phosphatase C-Reactive Protein 16.8 H Total Protein Albumin Urine Color Yellow Urine Appearance Cloudy Urine pH 5.5 Ur Specific [place] 1.033 Urine Protein 1+ H Urine Glucose (UA) Negative Urine Ketones 4+ H Urine Blood Negative Urine Nitrite Negative Urine Bilirubin Negative Urine Urobilinogen 0.2 Ur Leukocyte Esterase 1+ H Urine WBC (Auto) 8 Urine RBC (Auto) 2 Urine Casts (Auto) 66 U Pathogenic Cast Auto Negative U Epithel Cells (Auto) 19.8 U Sm Round Cell (Auto) Negative Urine Bacteria (Auto) 63.1 Urine HCG, Qual Opiates Screen Methadone Screen Barbiturate Screen Phencyclidine Screen Ur Amphetamines Screen MDMA (Ecstasy) Screen Benzodiazepines Screen Cocaine Screen U Marijuana (THC) Screen 12/24/19 12/24/19 12/24/19 02:33 03:34 06:10 WBC 18.4 H RBC 4.44 Hgb 13.0 Hct 38.5 MCV 86.8 MCH 29.2 MCHC 33.7 RDW 13.4 Plt Count 159 MPV 9.9 Absolute Neuts (auto) 15.4 H Neutrophils % 83.7 H Lymphocytes % 7.3 L Monocytes % 8.6 Eosinophils % 0.0 D Basophils % 0.4 Nucleated RBC % 0 ESR Sodium Potassium Chloride Carbon Dioxide Anion Gap BUN Creatinine Est GFR (CKD-EPI)AfAm Est GFR (CKD-EPI)NonAf Random Glucose Lactic Acid 0.9 Calcium Phosphorus Magnesium Total Bilirubin AST ALT Alkaline Phosphatase C-Reactive Protein Total Protein Albumin Urine Color Urine Appearance Urine pH Ur Specific [place] Urine Protein Urine Glucose (UA) Urine Ketones Urine Blood Urine Nitrite Urine Bilirubin Urine Urobilinogen Ur Leukocyte Esterase Urine WBC (Auto) Urine RBC (Auto) Urine Casts (Auto) U Pathogenic Cast Auto U Epithel Cells (Auto) U Sm Round Cell (Auto) Urine Bacteria (Auto) Urine HCG, Qual Opiates Screen Negative Methadone Screen Negative Barbiturate Screen Negative Phencyclidine Screen Negative Ur Amphetamines Screen Negative MDMA (Ecstasy) Screen Negative Benzodiazepines Screen Negative Cocaine Screen Negative U Marijuana (THC) Screen Negative 12/24/19 06:10 WBC RBC Hgb Hct MCV MCH MCHC RDW Plt Count MPV Absolute Neuts (auto) Neutrophils % Lymphocytes % Monocytes % Eosinophils % Basophils % Nucleated RBC % ESR Sodium 133 L Potassium 2.9 L* Chloride 102 Carbon Dioxide 21 Anion Gap 9 BUN 11.9 Creatinine 0.6 Est GFR (CKD-EPI)AfAm 145.80 Est GFR (CKD-EPI)NonAf 125.80 Random Glucose 138 H Lactic Acid Calcium 8.8 Phosphorus 3.0 Magnesium 1.9 Total Bilirubin 0.8 AST 12 L ALT 21 Alkaline Phosphatase 66 C-Reactive Protein Total Protein 7.3 Albumin 3.7 Urine Color Urine Appearance Urine pH Ur Specific [place] Urine Protein Urine Glucose (UA) Urine Ketones Urine Blood Urine Nitrite Urine Bilirubin Urine Urobilinogen Ur Leukocyte Esterase Urine WBC (Auto) Urine RBC (Auto) Urine Casts (Auto) U Pathogenic Cast Auto U Epithel Cells (Auto) U Sm Round Cell (Auto) Urine Bacteria (Auto) Urine HCG, Qual Opiates Screen Methadone Screen Barbiturate Screen Phencyclidine Screen Ur Amphetamines Screen MDMA (Ecstasy) Screen Benzodiazepines Screen Cocaine Screen U Marijuana (THC) Screen
--- NOTE | 2019-12-24 14:00 | PN ---
Progress Note (short form) - Note Progress Note: ID consult dictated 24 yo female presented to ED with one week of foot pain and erythema after dropping boiling water on her leg 2 weeks ago noted to have elevated WBC on admission, tachycardia she received vancomycin, clindamycin overnight she has become more lethargic still responsive but quite sleepy denies headache or neck pain given her progressive lethargy she just underwent an LP in the ED- OP normal, clear csf- awaiting cell count and gram stain seen after the LP was done just received steroids/ceftriaxone blood culture one bottle gpc chains! strep bacteremia-?skin source, ?meningitis r/o meningitis-no nuchal rigidity on exam droplet isolation for possible meningitis vancomycin/rocephin/acyclovir/clindamycin csf studies pending HIV testing IV hydration icu for monitoring neurology evaluation-seizure lucitay d/w hospitalist dr dickson
[2019-12-24 14:07] LABS: BF GLUCOSE (CSF ONLY) 82 mg/dL (40-70)
--- NOTE | 2019-12-24 14:12 | EKG ---
Test Reason : Blood Pressure : / mmHG Vent. Rate : 122 BPM Atrial Rate : 122 BPM P-R Int : 132 ms QRS Dur : 076 ms QT Int : 306 ms P-R-T Axes : 046 058 051 degrees QTc Int : 436 ms SINUS TACHYCARDIA OTHERWISE NORMAL ECG WHEN COMPARED WITH ECG OF 24-DEC-2019 01:51, NO SIGNIFICANT CHANGE WAS FOUND Confirmed by QUIANA NUNES MD ([id number]) on 12/24/2019 2:11:59 PM Referred By: Confirmed By:QUIANA NUNES MD
[2019-12-24] MEDS: LACTATED RINGERS SOLUTION 1,000 ML/1,000 ML INFUS.BAG IV SCH (14:13)
[2019-12-24] MEDS: KCL 10 MEQ IVPB 10 MEQ/100 ML INFUS.BAG IVPB SCH ×3 (14:13→17:34)
--- NOTE | 2019-12-24 14:14 | EKG ---
Test Reason : Blood Pressure : / mmHG Vent. Rate : 117 BPM Atrial Rate : 117 BPM P-R Int : 128 ms QRS Dur : 080 ms QT Int : 306 ms P-R-T Axes : 057 072 054 degrees QTc Int : 426 ms SINUS TACHYCARDIA OTHERWISE NORMAL ECG NO PREVIOUS ECGS AVAILABLE Confirmed by QUIANA NUNES MD ([id number]) on 12/24/2019 2:13:52 PM Referred By: Confirmed By:QUIANA NUNES MD
[2019-12-24 14:26] LABS: CSF APPEARANCE CLEAR; CSF COLOR COLORLESS
[2019-12-24 14:31] LABS: CSF WBC 0
[2019-12-24 14:38] LABS: CSF APPEARANCE CLEAR; CSF COLOR COLORLESS; CSF WBC 0
[2019-12-24] MEDS ORDERED: KCL 10 MEQ IVPB 10 MEQ/100 ML INFUS.BAG IVPB ONE ×2 (14:48→16:13)
[2019-12-24] MEDS ORDERED: ACYCLOVIR INJECTION 500 MG in DEXTROSE 5%-WATER - 100 ML IVPB SCH (15:00)
[2019-12-24] MEDS ORDERED: ACYCLOVIR INJECTION 650 MG in DEXTROSE 5%-WATER - 100 ML IVPB SCH (15:00)
[2019-12-24] MEDS ORDERED: ONDANSETRON 4 MG/2 ML VIAL IVPUSH ONE (15:09)
[2019-12-24] MEDS: PANTOPRAZOLE SODIUM 40 MG VIAL IVPUSH SCH (15:23)
[2019-12-24] MEDS ORDERED: ONDANSETRON 4 MG/2 ML VIAL ONE (15:24)
[2019-12-24] MEDS ORDERED: PANTOPRAZOLE SODIUM 40 MG VIAL ONE (15:24)
--- NOTE | 2019-12-24 15:46 | CONS ---
DATE OF CONSULTATION: DATE OF DICTATION: 12/24/2019 INFECTIOUS DISEASE CONSULTATION HISTORY OF PRESENT ILLNESS: This is a 24-year-old woman who comes to the ER. She has a history of a seizure disorder. She said 2 weeks ago she was carrying some boiling water in a pot and it fell on her foot. She developed a wound that increasing in size and is painful, and she came to the ER. She has a small wound on her 1st digit of her left hand, and she has a wound on the right lateral malleolus as well as the metatarsal in her big toe. White count was noted to be 19,000, and she was quite tachycardic. HOSPITAL COURSE: Her hospital course, she was admitted overnight. She was given clindamycin and vancomycin. She was noted to become more somnolent overnight. This morning she was noted to have fever of 102, and given her lethargy, she just underwent a spinal tap in the ER with normal opening pressure and clear CSF. Results are pending. She just received steroids, ceftriaxone. Blood cultures, 1 bottle is growing gram-positive cocci in chains. I am asked to see her for further evaluation. Much of the history is from the chart. She has family members present but who do not speak Danish well. The patient reports that she is from [place]. She denies any recent travel. PAST MEDICAL HISTORY: She has a past medical history of seizure disorder. She never had any surgery. There is no history of cigarette, alcohol, or substance use. No known drug allergies. MEDICATION: Her medications at home include: 1. Folic acid. 2. Keppra. 3. Oxcarbazepine. 4. Topamax. REVIEW OF SYSTEMS: Currently she denies any headaches. She denies any neck pain. She complains of nausea. PHYSICAL EXAMINATION: General: She is a young woman in no acute distress. Vital Signs: T-max of 102, pulse is 78, blood pressure 115/75, respiratory rate 17, she is saturating 98% on room air. HEENT: Normocephalic. She has bilateral conjunctivitis. Neck: Supple. She has no nuchal rigidity. Lungs: Clear to auscultation. Heart: Regular rate and rhythm. Abdomen: Soft, nontender. Extremities: Notable for mild erythema eschars in the lateral aspect of her left foot. There is minimal drainage from a superficial ulcer on the plantar aspect. There are no signs of an abscess. Her x-rays show no gas. IMPRESSION: In summary, this is a young woman admitted now with strep bacteremia, possible skin source, possible meningitis. She has just had a spinal tap, would maintain droplet isolation. Would treat her with Rocephin, acyclovir, and clindamycin to cover for group A strep as well. Cerebrospinal fluid studies are pending. Human immunodeficiency virus testing has been ordered. Intensive care unit for monitoring. Neurology evaluation given her seizures history. Case was discussed with the hospitalist, Dr. Aguilar. Further recommendations to follow. NEGIN ALFRED M.D. JONES/[id number]
[2019-12-24] MEDS ORDERED: LORazepam 2 MG/ML SDV VIAL IVPUSH PRN (16:10)
--- NOTE | 2019-12-24 16:10 | CONSULT ---
Consultation: REQUESTING PROVIDER: CONSULT REQUEST: We have been asked to medically evaluate this patient for lethargy. HISTORY OF PRESENT ILLNESS: Patient is a 24 y/o female with a history of epilepsy who presented to the ED for lower extremity wounds. Patient was evaluated by multiple providers and throughout the day she became more lethargic. Upon examination she was only arrousable to sternal rub. She was vomiting green thick sputum. Per patients friend at bedside she is typically normal at baseline and takes her medications. REVIEW OF SYSTEMS: unable to review with lethargic patient. PHYSICAL EXAMINATION Vital Signs - 24 hr 12/23/19 12/24/19 12/24/19 18:57 00:30 03:00 Temperature 99.3 F 99.0 F Pulse Rate 127 H Pulse Rate [ 110 H 81 Radial] Respiratory 20 18 18 Rate Blood Pressure 112/72 Blood Pressure 115/73 113/71 [Left Arm] O2 Sat by Pulse 100 100 100 Oximetry (%) 12/24/19 12/24/19 07:03 09:45 Temperature 98.9 F 102.0 F H Pulse Rate Pulse Rate [ 78 Radial] Respiratory 17 Rate Blood Pressure Blood Pressure 115/75 [Left Arm] O2 Sat by Pulse 98 Oximetry (%) GENERAL: patient is somnolent, arousable to sternal rub HEAD: Normal with no signs of trauma. EYES: Pupils equal, round and reactive to light, EARS, NOSE, THROAT: Moist mucous membranes. NECK: Normal range of motion, supple without lymphadenopathy LUNGS: Breath sounds equal, clear to auscultation bilaterally HEART: Regular rate and rhythm, normal S1 and S2 without murmur, rub or gallop. ABDOMEN: Soft, nontender, not distended, normoactive bowel sounds, no guarding, no rebound, no masses. LOWER EXTREMITIES: 2+ pulses, warm, well-perfused. No calf tenderness. No peripheral edema. SKIN: R foot with 3 x3 cm malleolus wound, no surrounding erythema, no pus or drainage Laboratory Results - last 24 hr 12/23/19 12/23/19 12/23/19 22:15 22:15 23:27 WBC 19.5 H RBC 4.68 Hgb 13.9 Hct 41.1 MCV 87.9 MCH 29.7 MCHC 33.8 RDW 13.9 Plt Count 189 MPV 9.7 Absolute Neuts (auto) 16.6 H Neutrophils % 85.3 H Lymphocytes % 6.2 L Monocytes % 8.1 Eosinophils % 0.1 Basophils % 0.3 Nucleated RBC % 0 ESR Sodium 136 Potassium 3.9 Chloride 103 Carbon Dioxide 23 Anion Gap 9 BUN 14.3 Creatinine 0.7 Est GFR (CKD-EPI)AfAm 138.59 Est GFR (CKD-EPI)NonAf 119.58 Random Glucose 104 Lactic Acid Calcium 9.6 Phosphorus Magnesium Total Bilirubin 0.6 AST 17 ALT 21 Alkaline Phosphatase 73 Ammonia C-Reactive Protein Total Protein 8.2 Albumin 4.2 Urine Color Urine Appearance Urine pH Ur Specific Newsoms Urine Protein Urine Glucose (UA) Urine Ketones Urine Blood Urine Nitrite Urine Bilirubin Urine Urobilinogen Ur Leukocyte Esterase Urine WBC (Auto) Urine RBC (Auto) Urine Casts (Auto) U Pathogenic Cast Auto U Epithel Cells (Auto) U Sm Round Cell (Auto) Urine Bacteria (Auto) Urine HCG, Qual Negative CSF Appearance CSF Color CSF WBC CSF RBC CSF Neutrophils CSF Lymphocytes CSF Eosinophils CSF Basophils CSF Macrophages CSF Plasma Cells CSF Diff Comment CSF Comment CSF Glucose CSF Total Protein Opiates Screen Methadone Screen Barbiturate Screen Phencyclidine Screen Ur Amphetamines Screen MDMA (Ecstasy) Screen Benzodiazepines Screen Cocaine Screen U Marijuana (THC) Screen 12/23/19 12/24/19 12/24/19 23:27 02:33 02:33 WBC RBC Hgb Hct MCV MCH MCHC RDW Plt Count MPV Absolute Neuts (auto) Neutrophils % Lymphocytes % Monocytes % Eosinophils % Basophils % Nucleated RBC % ESR 70 H Sodium Potassium Chloride Carbon Dioxide Anion Gap BUN Creatinine Est GFR (CKD-EPI)AfAm Est GFR (CKD-EPI)NonAf Random Glucose Lactic Acid Calcium Phosphorus Magnesium Total Bilirubin AST ALT Alkaline Phosphatase Ammonia C-Reactive Protein 16.8 H Total Protein Albumin Urine Color Yellow Urine Appearance Cloudy Urine pH 5.5 Ur Specific Newsoms 1.033 Urine Protein 1+ H Urine Glucose (UA) Negative Urine Ketones 4+ H Urine Blood Negative Urine Nitrite Negative Urine Bilirubin Negative Urine Urobilinogen 0.2 Ur Leukocyte Esterase 1+ H Urine WBC (Auto) 8 Urine RBC (Auto) 2 Urine Casts (Auto) 66 U Pathogenic Cast Auto Negative U Epithel Cells (Auto) 19.8 U Sm Round Cell (Auto) Negative Urine Bacteria (Auto) 63.1 Urine HCG, Qual CSF Appearance CSF Color CSF WBC CSF RBC CSF Neutrophils CSF Lymphocytes CSF Eosinophils CSF Basophils CSF Macrophages CSF Plasma Cells CSF Diff Comment CSF Comment CSF Glucose CSF Total Protein Opiates Screen Methadone Screen Barbiturate Screen Phencyclidine Screen Ur Amphetamines Screen MDMA (Ecstasy) Screen Benzodiazepines Screen Cocaine Screen U Marijuana (THC) Screen 12/24/19 12/24/19 12/24/19 02:33 03:34 06:10 WBC 18.4 H RBC 4.44 Hgb 13.0 Hct 38.5 MCV 86.8 MCH 29.2 MCHC 33.7 RDW 13.4 Plt Count 159 MPV 9.9 Absolute Neuts (auto) 15.4 H Neutrophils % 83.7 H Lymphocytes % 7.3 L Monocytes % 8.6 Eosinophils % 0.0 D Basophils % 0.4 Nucleated RBC % 0 ESR Sodium Potassium Chloride Carbon Dioxide Anion Gap BUN Creatinine Est GFR (CKD-EPI)AfAm Est GFR (CKD-EPI)NonAf Random Glucose Lactic Acid 0.9 Calcium Phosphorus Magnesium Total Bilirubin AST ALT Alkaline Phosphatase Ammonia C-Reactive Protein Total Protein Albumin Urine Color Urine Appearance Urine pH Ur Specific Newsoms Urine Protein Urine Glucose (UA) Urine Ketones Urine Blood Urine Nitrite Urine Bilirubin Urine Urobilinogen Ur Leukocyte Esterase Urine WBC (Auto) Urine RBC (Auto) Urine Casts (Auto) U Pathogenic Cast Auto U Epithel Cells (Auto) U Sm Round Cell (Auto) Urine Bacteria (Auto) Urine HCG, Qual CSF Appearance CSF Color CSF WBC CSF RBC CSF Neutrophils CSF Lymphocytes CSF Eosinophils CSF Basophils CSF Macrophages CSF Plasma Cells CSF Diff Comment CSF Comment CSF Glucose CSF Total Protein Opiates Screen Negative Methadone Screen Negative Barbiturate Screen Negative Phencyclidine Screen Negative Ur Amphetamines Screen Negative MDMA (Ecstasy) Screen Negative Benzodiazepines Screen Negative Cocaine Screen Negative U Marijuana (THC) Screen Negative 12/24/19 12/24/19 12/24/19 06:10 12:27 13:15 WBC RBC Hgb Hct MCV MCH MCHC RDW Plt Count MPV Absolute Neuts (auto) Neutrophils % Lymphocytes % Monocytes % Eosinophils % Basophils % Nucleated RBC % ESR Sodium 133 L Potassium 2.9 L* Chloride 102 Carbon Dioxide 21 Anion Gap 9 BUN 11.9 Creatinine 0.6 Est GFR (CKD-EPI)AfAm 145.80 Est GFR (CKD-EPI)NonAf 125.80 Random Glucose 138 H Lactic Acid Calcium 8.8 Phosphorus 3.0 Magnesium 1.9 Total Bilirubin 0.8 AST 12 L ALT 21 Alkaline Phosphatase 66 Ammonia C-Reactive Protein Total Protein 7.3 Albumin 3.7 Urine Color Urine Appearance Urine pH Ur Specific Newsoms Urine Protein Urine Glucose (UA) Urine Ketones Urine Blood Urine Nitrite Urine Bilirubin Urine Urobilinogen Ur Leukocyte Esterase Urine WBC (Auto) Urine RBC (Auto) Urine Casts (Auto) U Pathogenic Cast Auto U Epithel Cells (Auto) U Sm Round Cell (Auto) Urine Bacteria (Auto) Urine HCG, Qual CSF Appearance Clear Clear CSF Color Colorless Colorless CSF WBC 0 0 CSF RBC 0 8 CSF Neutrophils No Result Required. No Result Required. CSF Lymphocytes No Result Required. No Result Required. CSF Eosinophils No Result Required. No Result Required. CSF Basophils No Result Required. No Result Required. CSF Macrophages No Result Required. No Result Required. CSF Plasma Cells No Result Required. No Result Required. CSF Diff Comment No Result Required. No Result Required. CSF Comment No Result Required. N CSF Glucose 82 H No Result Required. CSF Total Protein 39 No Result Required. Opiates Screen Methadone Screen Barbiturate Screen Phencyclidine Screen Ur Amphetamines Screen MDMA (Ecstasy) Screen Benzodiazepines Screen Cocaine Screen U Marijuana (THC) Screen 12/24/19 13:26 WBC RBC Hgb Hct MCV MCH MCHC RDW Plt Count MPV Absolute Neuts (auto) Neutrophils % Lymphocytes % Monocytes % Eosinophils % Basophils % Nucleated RBC % ESR Sodium Potassium Chloride Carbon Dioxide Anion Gap BUN Creatinine Est GFR (CKD-EPI)AfAm Est GFR (CKD-EPI)NonAf Random Glucose Lactic Acid Calcium Phosphorus Magnesium Total Bilirubin AST ALT Alkaline Phosphatase Ammonia 33.30 H C-Reactive Protein Total Protein Albumin Urine Color Urine Appearance Urine pH Ur Specific Newsoms Urine Protein Urine Glucose (UA) Urine Ketones Urine Blood Urine Nitrite Urine Bilirubin Urine Urobilinogen Ur Leukocyte Esterase Urine WBC (Auto) Urine RBC (Auto) Urine Casts (Auto) U Pathogenic Cast Auto U Epithel Cells (Auto) U Sm Round Cell (Auto) Urine Bacteria (Auto) Urine HCG, Qual CSF Appearance CSF Color CSF WBC CSF RBC CSF Neutrophils CSF Lymphocytes CSF Eosinophils CSF Basophils CSF Macrophages CSF Plasma Cells CSF Diff Comment CSF Comment CSF Glucose CSF Total Protein Opiates Screen Methadone Screen Barbiturate Screen Phencyclidine Screen Ur Amphetamines Screen MDMA (Ecstasy) Screen Benzodiazepines Screen Cocaine Screen U Marijuana (THC) Screen Active Medications Lactated Ringer's (Lactated Ringers Solution) 1,000 ml in 1,000 mls @ 125 mls/ hr IV ASDIR [facility] Last Admin: 12/24/19 14:13 Dose: 125 mls/hr Ceftriaxone Sodium 2 gm/ (Dextrose) 100 mls @ 200 mls/hr IVPB BID [facility] Acyclovir 650 mg/ Dextrose 113 mls @ 100 mls/hr IVPB Q8H-IV [facility] Last Admin: 12/24/19 15:21 Dose: 100 mls/hr Clindamycin Phosphate (Cleocin 600 Mg Premix Ivpb -) 600 mg in 50 mls @ 100 mls /hr IVPB Q8H-IV [facility]; Protocol Levetiracetam (Keppra Injection -) 750 mg IVPB BID [facility] Oxcarbazepine (Trileptal -) 600 mg PO DAILY [facility] Last Admin: 12/24/19 11:29 Dose: 600 mg Oxcarbazepine (Trileptal -) 900 mg PO HS [facility] Pantoprazole Sodium (Protonix Iv) 40 mg IVPUSH DAILY [facility] Last Admin: 12/24/19 15:23 Dose: 40 mg Silver Sulfadiazine (Silvadene -) 1 applic TP DAILY [facility] Last Admin: 12/24/19 11:16 Dose: 1 applic Topiramate (Topamax -) 100 mg PO DAILY [facility] Last Admin: 12/24/19 11:17 Dose: 100 mg Vancomycin HCl (Vancomycin (Pre-Docked)) 1,000 mg IVPB ONCE ONE Stop: 12/24/19 17:01 Vancomycin HCl (Vancomycin (Pre-Docked)) 1,000 mg IVPB BID [facility]; Protocol ASSESSMENT/PLAN: Patient is a 24 y/o female with a history of epilepsy who was admitted for cellulitis and has new lethargy with fever. #Neuro - arousable to sternal rub - meningitis r/0 with negative LP and no nuchal regidity - hold antiseizure medication in setting of AMS, f/u levels - 1st Head CT: negative, patient fell last night f/u with 2nd head CT - UTOX negative - followed by Dr. Lane - f/u EEG - can give ativan for seizures #Cardio - tachycardic, likely 2/2 to sepsis - continue fluids - QTC 306 #Pulm - CXR clear - aspiration precautions while patient is vomiting - protonix 40 daily - f/u ABG to r/o other causes of AMS - saturation has remained above 95% #GI - patient currently vomiting, conitnue aspiration percautions - zofran as - f/u ABD/Pelvis CT #Nephro - hypokalemia, repleted - repeat at 6 pm #ID - sepsis 2/2 to unknown source, UTI vs cellulitis, low suspicion for intra abdominal - continue Acyclovir, Clindamycin, Vancomycin for 24 hours - discussed with Dr. Bolanos - ? if wound cellulitis, unlikely per podiatry - bcx postive with one bottle, f/u Ucx #DVT ppx - SCD's FEN -npo - LR @ 125 Dispo: We will continue to follow the patient. Thank you for this consultative opportunity. Visit type - Emergency Visit Emergency Visit: No - New Patient This patient is new to me today: Yes Date on this admission: 12/28/19 - Critical Care Critical Care patient: Yes Total Critical Care Time (in minutes): 40 Critical Care Statement: The care of this patient involved high complexity decision making to prevent further life threatening deterioration of the patient 's condition and/or to evaluate & treat vital organ system(s) failure or risk of failure. ATTENDING PHYSICIAN STATEMENT I saw and evaluated the patient. I reviewed the resident's note and discussed the case with the resident. I agree with the resident's findings and plan as documented. SUBJECTIVE: OBJECTIVE: ASSESSMENT AND PLAN:
[2019-12-24] MEDS: ONDANSETRON 4 MG/2 ML VIAL IVPUSH SCH ×2 (16:16→21:51)
[2019-12-24] MEDS ORDERED: VANCOMYCIN 1 GM in D5W (PRE-DOCKED) 1,000 MG/250 ML IVPB ONE ×2 (17:00→23:17)
[2019-12-24] MEDS: CLINDAMYCIN 600MG PREMIX IVPB 600 MG/50 ML BAG IVPB SCH ×2 (17:34→18:23)
[2019-12-24 18:05] LABS: ARTERIAL BLD GAS O2 SATURATION 98.5 % (95-98); ARTERIAL BLOOD GAS BASE EXCESS -6.5 meq/l (-2-2); ARTERIAL BLOOD GAS PO2 131 mmHg (80-100); ARTERIAL BLOOD GAS pH 7.39 (7.35-7.45)
[2019-12-24 18:06] LABS: ALLENS TEST POSITIVE
[2019-12-24] MEDS ORDERED: DEXTROSE 5%-WATER 100 ML IVPB ONE (21:50)
[2019-12-24] MEDS: CEFTRIAXONE 2 GM in DEXTROSE 5%-WATER 100 ML IVPB SCH (21:50)
[2019-12-24] MEDS ORDERED: levETIRAcetam 500 MG/5 ML INJECTION VIAL IVPB SCH (22:00)
[2019-12-24 22:11] LABS: BLOOD UREA NITROGEN 6.5 mg/dL (7-18); CALCIUM 7.7 mg/dL (8.5-10.1); CREATININE 0.5 mg/dL (0.55-1.3); POTASSIUM 4.3 mmol/L (3.5-5.1)
[2019-12-24] MEDS ORDERED: TOPIRAMATE 100 MG TABLET PO ONE (22:13)
[2019-12-24 22:35] LABS: BLOOD UREA NITROGEN 6.2 mg/dL (7-18); CALCIUM 7.9 mg/dL (8.5-10.1); CREATININE 0.5 mg/dL (0.55-1.3); POTASSIUM 4.3 mmol/L (3.5-5.1)
[2019-12-24] MEDS: VANCOMYCIN 1 GM in D5W (PRE-DOCKED) 1,000 MG/250 ML IVPB SCH (23:28)
[2019-12-25] MEDS ORDERED: ONDANSETRON 4 MG/2 ML VIAL IVPUSH PRN (00:28)
[2019-12-25] MEDS: ONDANSETRON 4 MG/2 ML VIAL IVPUSH SCH (00:34)
[2019-12-25] MEDS: CLINDAMYCIN 600MG PREMIX IVPB 600 MG/50 ML BAG IVPB SCH ×3 (01:26→18:57)
[2019-12-25] MEDS ORDERED: ACYCLOVIR INJECTION 600 MG in DEXTROSE 5%-WATER - 100 ML IVPB SCH (02:00)
[2019-12-25] MEDS ORDERED: PIPERACILLIN/TAZOB 3.375 GM 3.375 GM in DEXTROSE 5%-WATER - 50 ML IVPB SCH (03:00)
[2019-12-25] MEDS ORDERED: VANCOMYCIN 1 GM in D5W (PRE-DOCKED) 1,000 MG/250 ML IVPB SCH (05:00)
[2019-12-25 06:57] LABS: HEMATOCRIT 30.8 % (32.4-45.2); HEMOGLOBIN 10.7 GM/dL (10.7-15.3); MCH 30.3 pg (25.7-33.7); MCHC 34.6 g/dl (32.0-36.0); MEAN CELL VOLUME 87.5 fl (80-96); MEAN PLT VOLUME 9.9 fl (7.5-11.1); PLATELET COUNT 139 K/MM3 (134-434); RBC 3.52 M/mm3 (3.60-5.2); RDW 13.5 % (11.6-15.6); WHITE BLOOD COUNT 9.1 K/mm3 (4.0-10.0)
[2019-12-25 07:29] LABS: ALBUMIN 2.8 g/dl (3.4-5.0); BILIRUBIN,TOTAL 0.3 mg/dL (0.2-1); BLOOD UREA NITROGEN 4.2 mg/dL (7-18); CALCIUM 8.1 mg/dL (8.5-10.1); CREATININE 0.4 mg/dL (0.55-1.3); PHOSPHOROUS 2.8 mg/dL (2.5-4.9); POTASSIUM 3.8 mmol/L (3.5-5.1); TOT PROT 5.8 g/dl (6.4-8.2)
[2019-12-25] MEDS ORDERED: DEXTROSE 5%-WATER 100 ML IVPB ONE ×2 (08:45→20:58)
--- NOTE | 2019-12-25 09:14 | CONSULT ---
Consult - text type - Consultation Consultation Note: Neurology CHIEF COMPLAINT: right foot wound PCP: none HISTORY OF PRESENT ILLNESS: 24 y.o. F PMH epilepsy presented for RLE wound. Patient stated 2 weeks ago she was carrying a pot of boiling water when it fell onto her right foot. She has not been in significant pain but has been developing a wound on her R foot so decided to come to the hospital. Patient noted the wound has been increasing in size; she now has a wound on RLE lateral malleolus, RLE ventral 1st metatarsal, and a developing blister on the distal portion of her R great toe. She also has a small wound on the distal aspect of her left upper etxremity 1st digit. She has not taken any medications at home to help with the pain. Patient is able to ambulate. She is afebrile. CT of cervical spine performed and showed no evidence of acute fracture, compression deformities, subluxation, prevertebral soft tissue swelling. CT head completed and demonstrated no acute pathology. On 12/24, the patient suddenly and rapidly had a deterioration of mental status and I was contacted by the resident. Please see notes in the chart for further details, which had reviewed. She completed spinal tap which showed 0 WBC although there was increase in glucose but normal protein which does not seem to be consistent with any typical pattern of meningitis. Repeated CT of head also reviewed and showed no interval change compared to prior study performed 12 hours earlier. The patient was transfer to the ICU where she currently remains for critical care management and monitoring. This morning, she is awake and alert and minimally conversive still appears to have some cognitive difficulty but much improved as compared to prior. Based on labs, likely underlying infection and possible sepsis. PAtient also with underlying seizure history but did not appear to have seizure like activity. Recent Travel: denies PAST MEDICAL HISTORY: epilepsy PAST SURGICAL HISTORY: denies Family History: HTN Social History: Smoking: denies Alcohol:denies Drugs: denies REVIEW OF SYSTEMS CONSTITUTIONAL: Absent: fever, chills, diaphoresis, generalized weakness, malaise, loss of appetite, weight change HEENT: Absent: rhinorrhea, nasal congestion, throat pain, throat swelling, difficulty swallowing, mouth swelling, ear pain, eye pain, visual changes CARDIOVASCULAR: Absent: chest pain, syncope, palpitations, irregular heart rate, lightheadedness , peripheral edema RESPIRATORY: Absent: cough, shortness of breath, dyspnea with exertion, orthopnea, wheezing, stridor, hemoptysis GASTROINTESTINAL: Absent: abdominal pain, abdominal distension, nausea, vomiting, diarrhea, constipation, melena, hematochezia GENITOURINARY: Absent: dysuria, frequency, urgency, hesitancy, hematuria, flank pain, genital pain MUSCULOSKELETAL: Absent: myalgia, arthralgia, joint swelling, back pain, neck pain SKIN: Absent: rash, itching, pallor HEMATOLOGIC/IMMUNOLOGIC: Absent: easy bleeding, easy bruising, lymphadenopathy, frequent infections ENDOCRINE: Absent: unexplained weight gain, unexplained weight loss, heat intolerance, cold intolerance NEUROLOGIC: Absent: headache, focal weakness or paresthesias, dizziness, unsteady gait, seizure, mental status changes, bladder or bowel incontinence PSYCHIATRIC: Absent: anxiety, depression, suicidal or homicidal ideation, hallucinations. Allergies No Known Allergies Allergy (Verified 12/23/19 18:57) HOME MEDICATIONS: Home Medications Medication Instructions Recorded Folic Acid - 1 mg PO DAILY 12/23/19 Levetiracetam [Keppra Xr -] 750 mg PO BID 12/23/19 Oxcarbazepine 600 mg PO DAILY 12/23/19 Oxcarbazepine 900 mg PO HS 12/23/19 Topiramate 100 mg PO DAILY 12/23/19 Active Medications Lactated Ringer's (Lactated Ringers Solution) 1,000 ml in 1,000 mls @ 125 mls/ hr IV [facility] Last Admin: 12/24/19 14:13 Dose: 125 mls/hr Ceftriaxone Sodium 2 gm/ (Dextrose) 100 mls @ 200 mls/hr IVPB BID [facility] Last Admin: 12/24/19 21:50 Dose: 200 mls/hr Clindamycin Phosphate (Cleocin 600 Mg Premix Ivpb -) 600 mg in 50 mls @ 100 mls /hr IVPB Q8H-IV [facility]; Protocol Last Admin: 12/25/19 01:26 Dose: 100 mls/hr Acyclovir 600 mg/ Dextrose 112 mls @ 100 mls/hr IVPB Q8H-IV [facility] Last Admin: 12/25/19 02:21 Dose: 100 mls/hr Levetiracetam (Keppra Injection -) 750 mg IVPB BID [facility] Lorazepam (Ativan Injection -) 1 mg IVPUSH Q6H PRN PRN Reason: [facility] SEIZURES Ondansetron HCl (Zofran Injection) 4 mg IVPUSH Q4H PRN PRN Reason: NAUSEA AND/OR VOMITING Oxcarbazepine (Trileptal) 600 mg PO DAILY [facility] Oxcarbazepine (Trileptal) 900 mg PO HS [facility] Pantoprazole Sodium (Protonix Iv) 40 mg IVPUSH DAILY [facility] Last Admin: 12/24/19 15:23 Dose: 40 mg Silver Sulfadiazine (Silvadene -) 1 applic TP DAILY [facility] Last Admin: 12/24/19 11:16 Dose: 1 applic Topiramate (Topamax -) 100 mg PO BID [facility] Vancomycin HCl (Vancomycin (Pre-Docked)) 1,000 mg IVPB Q12H [facility]; Protocol Last Admin: 12/24/19 23:28 Dose: 1,000 mg PHYSICAL EXAMINATION Vital Signs Period Temp Pulse Resp BP Sys/Coleman Pulse Ox Last 24 Hr 97.9 F-102.0 F 70-115 12-18 85-110/54-78 98-100 GENERAL: Awake, alert, and fully oriented, in no acute distress. HEENT: NCAT sclera clear MMM LUNGS: Breath sounds equal, clear to auscultation bilaterally. No wheezes, and no crackles. No accessory muscle use. HEART: tachycardic, normal S1 and S2 without murmurs ABDOMEN: Soft, nontender, not distended, + bowel sounds MUSCULOSKELETAL: Full ROM all joints EXTREMITIES: 2+ pulses intact b/l UE & LE. On R lateral malleolus, 1-2x3cm and 1 - 1z2cm wound, clear centers w/ blackened tissue surrounding edges, non purulent , slightly bloody drainage. On ventral R 1st metatarsal, 2-3 ~0.5cm wounds, non purulent non bloody. R 1st toe distal blister. On L 1st UE digit, distal healing wound noted, non bloody non purulent. NEURO: Decr sensation to RLE @ dorsal foot,, cranial nerves intact, moves all extremities equally, finger-nose normal CBCD WBC 9.1 K/mm3 (4.0-10.0) 12/25/19 06:25 RBC 3.52 M/mm3 (3.60-5.2) L 12/25/19 06:25 Hgb 10.7 GM/dL (10.7-15.3) 12/25/19 06:25 Hct 30.8 % (32.4-45.2) L D 12/25/19 06:25 MCV 87.5 fl (80-96) 12/25/19 06:25 MCHC 34.6 g/dl (32.0-36.0) 12/25/19 06:25 RDW 13.5 % (11.6-15.6) 12/25/19 06:25 Plt Count 139 K/MM3 (134-434) 12/25/19 06:25 MPV 9.9 fl (7.5-11.1) 12/25/19 06:25 CMP Sodium 140 mmol/L (136-145) 12/25/19 06:25 Potassium 3.8 mmol/L (3.5-5.1) 12/25/19 06:25 Chloride 113 mmol/L (98-107) H 12/25/19 06:25 Carbon Dioxide 20 mmol/L (21-32) L 12/25/19 06:25 Anion Gap 6 MMOL/L (8-16) L 12/25/19 06:25 BUN 4.2 mg/dL (7-18) L 12/25/19 06:25 Creatinine 0.4 mg/dL (0.55-1.3) L 12/25/19 06:25 Random Glucose 90 mg/dL (74-106) 12/25/19 06:25 Calcium 8.1 mg/dL (8.5-10.1) L 12/25/19 06:25 Total Bilirubin 0.3 mg/dL (0.2-1) 12/25/19 06:25 AST 23 U/L (15-37) 12/25/19 06:25 ALT 38 U/L (13-61) 12/25/19 06:25 Alkaline Phosphatase 56 U/L (45-117) 12/25/19 06:25 Total Protein 5.8 g/dl (6.4-8.2) L 12/25/19 06:25 Albumin 2.8 g/dl (3.4-5.0) L 12/25/19 06:25 ASSESSMENT/PLAN: 24 y.o. F H epilepsy presented for RLE wound. Patient stated 2 weeks ago she was carrying a pot of boiling water when it fell onto her right foot. She has not been in significant pain but has been developing a wound on her R foot so decided to come to the hospital. Patient noted the wound has been increasing in size; she now has a wound on RLE lateral malleolus, RLE ventral 1st metatarsal, and a developing blister on the distal portion of her R great toe. She also has a small wound on the distal aspect of her left upper etxremity 1st digit. She has not taken any medications at home to help with the pain. Patient is able to ambulate. She is afebrile. CT of cervical spine performed and showed no evidence of acute fracture, compression deformities, subluxation, prevertebral soft tissue swelling. CT head completed and demonstrated no acute pathology. On 12/24, the patient suddenly and rapidly had a deterioration of mental status and I was contacted by the resident. Please see notes in the chart for further details, which had reviewed. She completed spinal tap which showed 0 WBC although there was increase in glucose but normal protein which does not seem to be consistent with any typical pattern of meningitis. Repeated CT of head also reviewed and showed no interval change compared to prior study performed 12 hours earlier. The patient was transfer to the ICU where she currently remains for critical care management and monitoring. This morning, she is awake and alert and minimally conversive still appears to have some cognitive difficulty but much improved as compared to prior. Based on labs, likely underlying infection and possible sepsis. PAtient also with underlying seizure history but did not appear to have seizure like activity. Continued infectious mgmt, follow-up ID recommendations. Continue current seizure regimen, continue close monitoring of neurologic status, maintain adequate by mouth and IV hydration. Critical care time 35 mins.
[2019-12-25] MEDS ORDERED: PT OWN MED DRAWER 7, Y5N ONE (09:21)
[2019-12-25] MEDS: levETIRAcetam 500 MG/5 ML INJECTION VIAL IVPB SCH ×2 (09:30→21:39)
[2019-12-25] MEDS: PANTOPRAZOLE SODIUM 40 MG VIAL IVPUSH SCH (09:31)
[2019-12-25] MEDS: CEFTRIAXONE 2 GM in DEXTROSE 5%-WATER 100 ML IVPB SCH ×2 (09:32→21:40)
[2019-12-25] MEDS: SILVER SULFADIAZINE 1% TOP CREAM 50 GM JAR TP SCH (09:37)
--- NOTE | 2019-12-25 09:38 | PN ---
Progress Note (short form) - Note Progress Note: afebrile alert recollects prior events including vomiting in the ER reports she came to ED due to foot pain- was hurting to walk also reports fevers at home neurologist is Dr Zepeda as outpt sezure meds recently increased one week ago no headaches lives at home with boyfriend and child Vital Signs Period Temp Pulse Resp BP Sys/Coleman Pulse Ox Last 24 Hr 97.9 F-102.0 F 70-115 12-18 85-110/54-78 98-100 cor-rrr lungs clear abd soft,nt ext right foot - plantar ulcer blister with ?purulence, dry ulcers on malleolus CBC, BMP 12/25/19 06:25 12/25/19 06:25 Microbiology 12/23/19 23:27 Urine - Urine Clean Catch Urine Culture - Preliminary 12/23/19 22:15 Blood - Peripheral Venous Blood Culture - Preliminary NO GROWTH OBTAINED AFTER 24 HOURS, INCUBATION TO CONTINUE FOR 4 DAYS. 12/24/19 13:15 Cerebral Spinal Fluid - Lumbar Puncture Streptococcus pneumoniae Antigen (M - Final 12/24/19 13:15 Cerebral Spinal Fluid - Lumbar Puncture Gram Stain - Final 12/23/19 22:15 Blood - Peripheral Venous Blood Culture - Preliminary Pending Organism Laboratory Tests 12/23/19 12/24/19 12/24/19 22:15 12:27 13:15 Eosinophils % 0.1 CSF WBC 0 0 CSF RBC 0 8 CSF Glucose 82 H CSF Total Protein 39 ct scan of head times [address]/abd ct - negative HIV negative a/p strep bacteremia- secondary to skin source, ?group a strep-ID pending clinically improved csf negative for infection- d/c acyclovir will taper antibiotics once further culture results are back droplet isolation for 24 hous echo repeat blood cultures in am
--- NOTE | 2019-12-25 09:49 | PN ---
Physical Exam: SUBJECTIVE: Patient seen and examined. No acute issues overnight. OBJECTIVE: Vital Signs Period Temp Pulse Resp BP Sys/Coleman Pulse Ox Last 24 Hr 97.9 F-102.0 F 70-115 12-18 85-110/54-78 98-100 GENERAL: The patient is sleepy but arousable and fully oriented, in no acute distress. HEAD: Normal with no signs of trauma. EYES: PERRL, extraocular movements intact, sclera anicteric, conjunctiva clear. No ptosis. ENT: Ears normal, nares patent, oropharynx clear without exudates, moist mucous membranes. NECK: Trachea midline, full range of motion, supple. LUNGS: Breath sounds equal, clear to auscultation bilaterally, no wheezes, no crackles, no accessory muscle use. HEART: Regular rate and rhythm, S1, S2 without murmur, rub or gallop. ABDOMEN: Soft, nontender, nondistended, normoactive bowel sounds, no guarding, no rebound, no hepatosplenomegaly, no masses. EXTREMITIES: 2+ pulses, warm, well-perfused, no edema. NEUROLOGICAL: Cranial nerves II through XII grossly intact. Normal speech, gait not observed. SKIN: R foot with 3x3 cm lateral malleolus wound, R 1st toe distal blister, no surrounding erythema, no pus or drainage Laboratory Results - last 24 hr CBC, BMP 12/25/19 06:25 12/25/19 06:25 Active Medications Lactated Ringer's (Lactated Ringers Solution) 1,000 ml in 1,000 mls @ 125 mls/ hr IV ASDIR [facility] Last Admin: 12/24/19 14:13 Dose: 125 mls/hr Ceftriaxone Sodium 2 gm/ (Dextrose) 100 mls @ 200 mls/hr IVPB BID [facility] Last Admin: 12/25/19 09:32 Dose: 200 mls/hr Clindamycin Phosphate (Cleocin 600 Mg Premix Ivpb -) 600 mg in 50 mls @ 100 mls /hr IVPB Q8H-IV [facility]; Protocol Last Admin: 12/25/19 09:31 Dose: 100 mls/hr Levetiracetam (Keppra Injection -) 750 mg IVPB BID [facility] Last Admin: 12/25/19 09:30 Dose: 750 mg Lorazepam (Ativan Injection -) 1 mg IVPUSH Q6H PRN PRN Reason: FPR SEIZURES Ondansetron HCl (Zofran Injection) 4 mg IVPUSH Q4H PRN PRN Reason: NAUSEA AND/OR VOMITING Oxcarbazepine (Trileptal) 600 mg PO DAILY [facility] Oxcarbazepine (Trileptal) 900 mg PO HS [facility] Pantoprazole Sodium (Protonix Iv) 40 mg IVPUSH DAILY [facility] Last Admin: 12/25/19 09:31 Dose: 40 mg Silver Sulfadiazine (Silvadene -) 1 applic TP DAILY [facility] Last Admin: 12/25/19 09:37 Dose: 1 applic Topiramate (Topamax -) 100 mg PO BID [facility] Vancomycin HCl (Vancomycin (Pre-Docked)) 1,000 mg IVPB Q12H [facility]; Protocol Last Admin: 12/24/19 23:28 Dose: 1,000 mg ASSESSMENT/PLAN: Patient is a 24 y/o female with a history of epilepsy who was admitted for cellulitis and has new lethargy with fever. Neuro -Now awake, alert and oriented -Meningitis r/o with negative LP and no nuchal regidity -CT Head: neg -UTOX negative -Neurology following (Dr. Lane) -Restart home meds and ativanprn for seizures Cardiovascular -Tachycardic, likely 2/2 to sepsis -Continue fluids -QTC 306 Pulmonary -CXR clear -Aspiration precautions while patient is vomiting -Protonix 40 daily -ABG normal -Saturation has remained above 95% GI -patient vomiting, conitnue aspiration precautions -zofran prn -CTAP: no acute pathology ID -Sepsis 2/2 to unknown source, UTI vs cellulitis, low suspicion for intra abdominal -Continue Acyclovir, Clindamycin, Vancomycin for 24 hours -ID following (Dr. Ospina) -Blood cx: GPC in chains -Urine and wound cx pending DVT ppx -SCD's FEN -Regular diet -LR @ 125 Dispo: Stable for transfer to [facility]-surg Visit type - Emergency Visit Emergency Visit: No - New Patient This patient is new to me today: No - Critical Care Critical Care patient: Yes Total Critical Care Time (in minutes): 45 Critical Care Statement: The care of this patient involved high complexity decision making to prevent further life threatening deterioration of the patient 's condition and/or to evaluate & treat vital organ system(s) failure or risk of failure. ATTENDING PHYSICIAN STATEMENT I saw and evaluated the patient. I reviewed the resident's note and discussed the case with the resident. I agree with the resident's findings and plan as documented. SUBJECTIVE: OBJECTIVE: ASSESSMENT AND PLAN:
[2019-12-25] MEDS: OXcarbazepine 300 MG/5 ML UNIT DOSE CUPS PO SCH (10:35)
[2019-12-25] MEDS: TOPIRAMATE 100 MG TABLET PO SCH ×2 (10:35→21:40)
[2019-12-25] MEDS: VANCOMYCIN 1 GM in D5W (PRE-DOCKED) 1,000 MG/250 ML IVPB SCH ×2 (10:38→23:51)
--- NOTE | 2019-12-25 11:49 | PN ---
Teaching Attending Note Name of Resident: María Putnam ATTENDING PHYSICIAN STATEMENT I saw and evaluated the patient. I reviewed the resident's note and discussed the case with the resident. I agree with the resident's findings and plan as documented. SUBJECTIVE: Patient seen and examined in the ICU. Awake and alert. Reports that she feels overall better. No CP or SOB. No pain in her right foot. No dizziness, HERNANDEZ, BOV, etc. Intake & Output 12/22/19 12/23/19 12/24/19 12/25/19 23:59 23:59 23:59 23:59 Intake Total 1950 Output Total 1999 1200 Balance -2000 750 Weight 145 lb 131 lb 1.6 oz 131 lb 1 oz Last Vital Signs Temp Pulse Resp BP Pulse Ox 98.2 F 91 H 15 91/66 100 12/25/19 10:00 12/25/19 10:00 12/25/19 10:00 12/25/19 10:00 12/25/19 07:28 Active Medications Lactated Ringer's (Lactated Ringers Solution) 1,000 ml in 1,000 mls @ 125 mls/ hr IV ASDIR [facility] Last Admin: 12/24/19 14:13 Dose: 125 mls/hr Ceftriaxone Sodium 2 gm/ (Dextrose) 100 mls @ 200 mls/hr IVPB BID [facility] Last Admin: 12/25/19 09:32 Dose: 200 mls/hr Clindamycin Phosphate (Cleocin 600 Mg Premix Ivpb -) 600 mg in 50 mls @ 100 mls /hr IVPB Q8H-IV [facility]; Protocol Last Admin: 12/25/19 09:31 Dose: 100 mls/hr Levetiracetam (Keppra Injection -) 750 mg IVPB BID [facility] Last Admin: 12/25/19 09:30 Dose: 750 mg Lorazepam (Ativan Injection -) 1 mg IVPUSH Q6H PRN PRN Reason: FPR SEIZURES Ondansetron HCl (Zofran Injection) 4 mg IVPUSH Q4H PRN PRN Reason: NAUSEA AND/OR VOMITING Oxcarbazepine (Trileptal) 600 mg PO DAILY [facility] Last Admin: 12/25/19 10:35 Dose: 600 mg Oxcarbazepine (Trileptal) 900 mg PO [facility] Pantoprazole Sodium (Protonix Iv) 40 mg IVPUSH DAILY [facility] Last Admin: 12/25/19 09:31 Dose: 40 mg Silver Sulfadiazine (Silvadene -) 1 applic TP DAILY [facility] Last Admin: 12/25/19 09:37 Dose: 1 applic Topiramate (Topamax -) 100 mg PO BID [facility] Last Admin: 12/25/19 10:35 Dose: 100 mg Vancomycin HCl (Vancomycin (Pre-Docked)) 1,000 mg IVPB Q12H [facility]; Protocol Last Admin: 12/25/19 10:38 Dose: 1,000 mg GENERAL:Awake and alert HEAD: Normal with no signs of trauma. EYES: Pupils equal, round and reactive to light, EARS, NOSE, THROAT: Moist mucous membranes. NECK: Normal range of motion, supple without lymphadenopathy LUNGS: Breath sounds equal, clear to auscultation bilaterally HEART: Regular rate and rhythm, normal S1 and S2 without murmur, rub or gallop. ABDOMEN: Soft, nontender, not distended, normoactive bowel sounds, no guarding, no rebound, no masses. LOWER EXTREMITIES: 2+ pulses, warm, well-perfused. No calf tenderness. No peripheral edema. SKIN: R foot with 3 x3 cm malleolus wound, no surrounding erythema, no pus or drainage ASSESSMENT/PLAN: Patient is a 24 y/o female with a history of epilepsy who was admitted for cellulitis. R/O meningitis Strep Bacteremia ABX per ID
--- NOTE | 2019-12-25 15:36 | ECHO ---
Name: LAINA GUTIERREZ Exam:Adult Echocardiogram Study Date: 12/25/2019 01:57 PM Age: 24 yrs Reason For Study: strep bacteremia r/o endocarditis Height: 65 in Weight: 131 lb BSA: 1.7 m2 MMode/2D Measurements & Calculations IVSd: 0.68 cm Ao root diam: 2.2 cm LVIDd: 3.5 cm LA dimension: 2.6 cm LVIDs: 2.3 cm LVPWd: 0.90 cm LVPWs: 0.91 cm EDV(Teich): 51.8 ml ESV(Teich): 18.4 ml LVOT diam: 1.9 cm LAV (MOD-bp): 35.0 ml TAPSE: 2.6 cm RV S Isael: 17.0 cm/sec Doppler Measurements & Calculations MV E max isael: 119.0 cm/sec Ao V2 max: 130.3 cm/sec MV A max isael: 123.1 cm/sec Ao max P.8 mmHg MV E/A: 0.97 CARLITO(V,D): 2.5 cm2 MV dec time: 0.11 sec LV V1 max P.5 mmHg PA V2 max: 111.6 cm/sec LV V1 max: 117.1 cm/sec PA max P.0 mmHg Med Peak E' Isael: 13.1 cm/sec Med E/e': 9.1 Lat Peak E' Isael: 20.4 cm/sec Lat E/e': 5.8 Left Ventricle The left ventricular size, thickness and function are normal. Ejection Fraction = 60-65%. The transmi tral spectral Doppler flow pattern is normal for age. Right Ventricle The right ventricle is normal in size and function. Atria Normal left and right atrial size and function. Mitral Valve The mitral valve is normal in structure and function. There is no mitral valve stenosis. There is tra ce mitral regurgitation. Tricuspid Valve The tricuspid valve is normal in structure and function. There is trace tricuspid regurgitation. Aortic Valve The aortic valve appears grossly normal. The aortic valve opens well. No hemodynamically significant valvular aortic stenosis. No aortic regurgitation is present. Pulmonic Valve The pulmonic valve is not well seen, but is grossly normal. There is no pulmonic valvular stenosis. T here is no pulmonic valvular regurgitation. Great Vessels The aortic root is normal size. Pericardium/Pleura There is no pericardial effusion. Interpretation Summary There is no evidence of a mass or vegetation. This does not rule out endocarditis. The left ventricul ar size, thickness and function are normal Ejection Fraction = 60-65%. The right ventricle is normal in size and function. There is trace mitral regurgitation. There is trace tricuspid regurgitation. The aortic valve appears grossly normal. There is no pericardial effusion. MD Olivas *Elida 12/25/2019 03:35 PM
--- NOTE | 2019-12-25 15:42 | PN ---
Physical Exam: SUBJECTIVE: Patient seen and examined. Pt is much more improved today. Pt is sitting up, tolerating diet, using the bathroom as needed. Mental status has significantly improved. Denies any seizures overnight. Denies f/c/sob/cp/ abdominal pain. OBJECTIVE: Vital Signs Period Temp Pulse Resp BP Sys/Coleman Pulse Ox Last 24 Hr 98 F-98.5 F 70-115 12-18 85-110/54-78 99-100 GENERAL: Awake, alert, and fully oriented. Pt is good state of health. Cooperative and conversational. LUNGS: CTAB HEART: tachycardic, normal S1 and S2 without murmurs ABDOMEN: Soft, nontender, not distended, + bowel sounds EXTREMITIES: 2+ pulses intact b/l UE & LE. On R lateral malleolus, 1-2x3cm and 1 - 1x2cm wound, clear centers w/ blackened tissue surrounding edges, non purulent , slightly bloody drainage. On ventral R 1st metatarsal, 2-3 ~0.5cm wounds, non purulent non bloody. R 1st toe distal blister. On L 1st UE digit, distal healing wound noted, non bloody non purulent. NEURO: PERRLA, CN2-12 intact. Strength weak overall, sensation intact Laboratory Results - last 24 hr 12/24/19 12/24/19 12/24/19 13:28 14:25 14:25 WBC RBC Hgb Hct MCV MCH MCHC RDW Plt Count MPV Anticoagulation Therapy Puncture Site ABG pH ABG pCO2 at Pt Temp ABG pO2 at Pt Temp ABG HCO3 ABG O2 Sat (Measured) ABG O2 Content ABG Base Excess Asad Test O2 Delivery Device Oxygen Flow Rate Vent Mode Vent Rate Mechanical Rate Pressure Support Vent Sodium Potassium Chloride Carbon Dioxide Anion Gap BUN Creatinine Est GFR (CKD-EPI)AfAm Est GFR (CKD-EPI)NonAf Random Glucose Lactic Acid Calcium Phosphorus Magnesium Total Bilirubin AST ALT Alkaline Phosphatase LD Total Total Protein Albumin Lipase TSH 0.28 L Free T4 RPR Titer Nonreactive HIV 1&2 Ag/Ab, 4th Gen Non reactive Influenza A (Rapid) Influenza B (Rapid) 12/24/19 12/24/19 12/24/19 14:25 17:30 19:30 WBC RBC Hgb Hct MCV MCH MCHC RDW Plt Count MPV Anticoagulation Therapy No Result Required. Puncture Site Right radial ABG pH 7.39 ABG pCO2 at Pt Temp 29.0 L ABG pO2 at Pt Temp 131 H ABG HCO3 17.0 L ABG O2 Sat (Measured) 98.5 H ABG O2 Content 15.3 ABG Base Excess -6.5 L Asad Test Positive O2 Delivery Device No Result Required. Oxygen Flow Rate Room air Vent Mode No Result Required. Vent Rate No Result Required. Mechanical Rate No Result Required. Pressure Support Vent No Result Required. Sodium Potassium Chloride Carbon Dioxide Anion Gap BUN Creatinine Est GFR (CKD-EPI)AfAm Est GFR (CKD-EPI)NonAf Random Glucose Lactic Acid 1.1 Calcium Phosphorus Magnesium Total Bilirubin AST ALT Alkaline Phosphatase LD Total 192 Total Protein Albumin Lipase TSH Free T4 RPR Titer HIV 1&2 Ag/Ab, 4th Gen Influenza A (Rapid) Influenza B (Rapid) 12/24/19 12/24/19 12/24/19 19:30 19:30 20:27 WBC RBC Hgb Hct MCV MCH MCHC RDW Plt Count MPV Anticoagulation Therapy Puncture Site ABG pH ABG pCO2 at Pt Temp ABG pO2 at Pt Temp ABG HCO3 ABG O2 Sat (Measured) ABG O2 Content ABG Base Excess Asad Test O2 Delivery Device Oxygen Flow Rate Vent Mode Vent Rate Mechanical Rate Pressure Support Vent Sodium 136 136 Potassium 4.3 4.3 Chloride 110 H 111 H Carbon Dioxide 20 L 18 L Anion Gap 6 L 7 L BUN 6.2 L 6.5 L Creatinine 0.5 L 0.5 L Est GFR (CKD-EPI)AfAm 154.81 154.81 Est GFR (CKD-EPI)NonAf 133.57 133.57 Random Glucose 136 H 139 H Lactic Acid Calcium 7.9 L 7.7 L Phosphorus Magnesium Total Bilirubin AST ALT Alkaline Phosphatase LD Total Total Protein Albumin Lipase 46 L TSH Free T4 0.88 RPR Titer HIV 1&2 Ag/Ab, 4th Gen Influenza A (Rapid) Influenza B (Rapid) 12/24/19 12/25/19 12/25/19 22:00 06:25 06:25 WBC 9.1 RBC 3.52 L Hgb 10.7 Hct 30.8 L D MCV 87.5 MCH 30.3 MCHC 34.6 RDW 13.5 Plt Count 139 MPV 9.9 Anticoagulation Therapy Puncture Site ABG pH ABG pCO2 at Pt Temp ABG pO2 at Pt Temp ABG HCO3 ABG O2 Sat (Measured) ABG O2 Content ABG Base Excess Asad Test O2 Delivery Device Oxygen Flow Rate Vent Mode Vent Rate Mechanical Rate Pressure Support Vent Sodium 140 Potassium 3.8 Chloride 113 H Carbon Dioxide 20 L Anion Gap 6 L BUN 4.2 L Creatinine 0.4 L Est GFR (CKD-EPI)AfAm 166.61 Est GFR (CKD-EPI)NonAf 143.75 Random Glucose 90 Lactic Acid Calcium 8.1 L Phosphorus 2.8 Magnesium 2.0 Total Bilirubin 0.3 AST 23 ALT 38 Alkaline Phosphatase 56 LD Total Total Protein 5.8 L Albumin 2.8 L Lipase TSH Free T4 RPR Titer HIV 1&2 Ag/Ab, 4th Gen Influenza A (Rapid) Negative Influenza B (Rapid) Negative Active Medications Generic Name Dose Route Start Last Admin Trade Name Freq PRN Reason Stop Dose Admin Lactated Ringer's 1,000 ml in 1,000 mls @ 125 mls/hr 12/24/19 12:30 12/24/19 14:13 Lactated Ringers Solution IV 125 mls/hr ASDIR [facility] Administration Ceftriaxone Sodium 2 gm/ 100 mls @ 200 mls/hr 12/24/19 22:00 12/25/19 09:32 Dextrose IVPB 200 mls/hr BID [facility] Administration Clindamycin Phosphate 600 mg in 50 mls @ 100 mls/hr 12/24/19 15:15 12/25/19 09:31 Cleocin 600 Mg Premix Ivpb - IVPB 100 mls/hr Q8H-IV [facility] Administration Protocol Levetiracetam 750 mg 12/25/19 10:00 12/25/19 09:30 Keppra Injection - IVPB 750 mg BID [facility] Administration Lorazepam 1 mg 12/24/19 16:10 Ativan Injection - IVPUSH Q6H PRN [facility] SEIZURES Ondansetron HCl 4 mg 12/25/19 00:28 Zofran Injection IVPUSH Q4H PRN NAUSEA AND/OR VOMITING Oxcarbazepine 600 mg 12/25/19 10:00 12/25/19 10:35 Trileptal PO 600 mg DAILY [facility] Administration Oxcarbazepine 900 mg 12/25/19 22:00 Trileptal PO HS [facility] Pantoprazole Sodium 40 mg 12/24/19 15:15 12/25/19 09:31 Protonix Iv IVPUSH 40 mg DAILY [facility] Administration Silver Sulfadiazine 1 applic 12/24/19 10:00 12/25/19 09:37 Silvadene - TP 1 applic DAILY [facility] Administration Topiramate 100 mg 12/25/19 10:00 12/25/19 10:35 Topamax - PO 100 mg BID [facility] Administration Vancomycin HCl 1,000 mg 12/24/19 23:00 12/25/19 10:38 Vancomycin (Pre-Docked) IVPB 1,000 mg Q12H [facility] Administration Protocol ASSESSMENT/PLAN: 24 y/o F PMH epilepsy presented to the ED c/o of right foot wounds 2/2 to dropping hot boiling water on herself is admitted for sepsis vs meningitis r/o #Sepsis likely 2/2 RLE cellulitis Febrile, + leukocytosis+ tachcyardic LP done- CSF cultures negative for meningitis- meningitis r/o R foot X-ray final read- soft tissue swelling, no signs of air. RLE MRI to r/o osteomyelitis L hand XR- no acute findings Seizure precautions neuro checks EEG ordered- pending results ECHO: taken- pending read TANNA, Chlam/GC ordered EBV, HCV HIV- neg, Flu-neg RPR, RA factor Urine legionella- neg Lipase normal Vanc + Ceftriaxone + Clindamycin Acyclovir d/samaria LR at 125 blood cultures-one bottle- Group A strep wound culture-Group A strep RLE cleaned w/ saline, wrapped w/ kerlex ID consulted-- Dr Ospina appreciated consult Wound care consulted-- Dr. Guzman- pending Podiatry- pending Discussed with Dr. Lane- consult appreciated. Will work up for likely causes such as autoimmune or thyroid disease Chest CT- .2 cm RUL nodule- will need to f/u with CT in 3 month #Epilepsy continue home AEDs- Keppra seizure & fall precautions f/u keppra, topiramate levels #Hypokalemia KCl repletion #Low TSH Free T4 normal T3 ordered- will f/u #N/v bilious vomit- resolved Protonix 40 IV Zofran 4 mg now- if still nauseous can icnrease to Zofran 8mg, if still nauseous consider Reglan. Abd CT- shows small fluid in the cul-de sac likely physiologic #FEN LR 125 replete lytes as needed Regular diet #DVT PPX #Dispo monitor overnight in ICU, monitor mental status, cont abx, cont keppra, f/u with pt's family, f/u ECHO, f/u pod and vascular recom Nicolette [phone] Visit type - Emergency Visit Emergency Visit: Yes ED Registration Date: 12/24/19 Care time: The patient presented to the Emergency Department on the above date and was hospitalized for further evaluation of their emergent condition. - New Patient This patient is new to me today: Yes Date on this admission: 12/25/19 - Critical Care Critical Care patient: No - Discharge Referral Referred to [facility] Med [facility].C[facility] No ATTENDING PHYSICIAN STATEMENT I saw and evaluated the patient. I reviewed the resident's note and discussed the case with the resident. I agree with the resident's findings and plan as documented. SUBJECTIVE: OBJECTIVE: ASSESSMENT AND PLAN:
--- NOTE | 2019-12-25 16:41 | PN ---
Progress Note (short form) - Note Progress Note: 24 y/o female seen in ICU now after being admitted with sepsis. Today patient is much more alert and oriented and states that she does remember me in the ER yesterday. States roughly 2 weeks ago dropped boiling water on her foot. States it became painful so presented to the ER for f/u. Has beenon IV abx and white count back to normal and mental status back to baseline. O: Right foot with healing wound underlying 1st MPJ, no erythema, slough noted at the wound site, no purulence noted, 5th MT base burn noted with minimal overlying eschar, right lateral fibula eschar noted, minimal erythema, no fluctuance, no purulence, edema far decreased and erythema decreased from yesterday, pulses palpable A: Resolving cellulitis Burn rle P: Evaluated and reviewed much improved clinically form yesterday MRI is ordered to evaluation; doubt any osteo is noted at this but will f/u once finished and if positive can biopsy as needed at this time though no apparent acute podiatric intervention will be needed unless MRI + for findings WBC back to wnl afebrile Cont Iv per ID Would likely benefit from HBO so consult placed will need f/u as outpatient at the wound care center at [place]. ; can call upon d/c and set up appt Will follow remotely for MRI and if negative will sign off and can follow as outpatient daily dressing changes with briseyda and DSD to the miles.
[2019-12-25] MEDS: LACTATED RINGERS SOLUTION 1,000 ML/1,000 ML INFUS.BAG IV SCH (18:58)
[2019-12-25] MEDS ORDERED: OXcarbazepine 300 MG/5 ML 250 ML BULK BOTTLE PO SCH (22:00)
[2019-12-26] MEDS: CLINDAMYCIN 600MG PREMIX IVPB 600 MG/50 ML BAG IVPB SCH ×3 (02:45→18:33)
[2019-12-26 06:26] LABS: BASO % 0.5 % (0-2.0); HEMATOCRIT 30.3 % (32.4-45.2); HEMOGLOBIN 10.5 GM/dL (10.7-15.3); LYMPH % 29.6 % (8-40); MCH 30.5 pg (25.7-33.7); MCHC 34.8 g/dl (32.0-36.0); MEAN CELL VOLUME 87.6 fl (80-96); MEAN PLT VOLUME 10.1 fl (7.5-11.1); MONO % 9.4 % (3.8-10.2); NEUT % 57.5 % (42.8-82.8); PLATELET COUNT 147 K/MM3 (134-434); RBC 3.46 M/mm3 (3.60-5.2); RDW 13.5 % (11.6-15.6); WHITE BLOOD COUNT 5.1 K/mm3 (4.0-10.0)
[2019-12-26 07:31] LABS: ALBUMIN 2.8 g/dl (3.4-5.0); ALK PHOS 52 U/L (45-117); ANION GAP 7 MMOL/L (8-16); BILIRUBIN,TOTAL < 0.1 mg/dL (0.2-1); BLOOD UREA NITROGEN 6.2 mg/dL (7-18); CHLORIDE 115 mmol/L (98-107); CO2 19 mmol/L (21-32); CREATININE 0.4 mg/dL (0.55-1.3); GLUCOSE,RANDOM 105 mg/dL (74-106); MAGNESIUM 1.9 mg/dL (1.8-2.4); PHOSPHOROUS 2.3 mg/dL (2.5-4.9); POTASSIUM 3.5 mmol/L (3.5-5.1); SGOT/AST 12 U/L (15-37); SGPT/ALT 29 U/L (13-61); SODIUM 141 mmol/L (136-145); TOT PROT 5.5 g/dl (6.4-8.2)
--- NOTE | 2019-12-26 07:41 | PN ---
Progress Note (short form) - Note Progress Note: Pulm/CCM SUBJECTIVE: Patient seen and examined in the ICU. -no acute changes -repeat blood cxl pending, no growth Vital Signs Temp 98.2 F 12/26/19 06:00 Pulse 87 12/26/19 06:00 Resp 15 12/26/19 06:00 BP 87/57 L 12/26/19 06:00 Pulse Ox 100 12/25/19 21:00 Intake & Output 12/25/19 12/25/19 12/26/19 11:59 23:59 11:59 Intake Total 1950 2650 1125 Output Total 1200 Balance 750 2650 1125 Weight 59.449 kg 61.915 kg Intake: IV 1500 1500 875 LACTATED RINGERS SOLUTION 1500 1500 875 1,000 ml In 1,000 ml @ 125 mls/hr IV ASDIR [facility] Rx#:[id number] IVPB 450 1150 250 Output: Urine 1200 Void 1200 Other: Voiding Method Bedpan Toilet # Unmeasured Voids Void 2 2 Bowel Movement No No Weight Measurement Method [facility] Active Medications Lactated Ringer's (Lactated Ringers Solution) 1,000 ml in 1,000 mls @ 125 mls/ hr IV ASDIR [facility] Last Admin: 12/25/19 18:58 Dose: 125 mls/hr Ceftriaxone Sodium 2 gm/ (Dextrose) 100 mls @ 200 mls/hr IVPB BID [facility] Last Admin: 12/25/19 21:40 Dose: 200 mls/hr Clindamycin Phosphate (Cleocin 600 Mg Premix Ivpb -) 600 mg in 50 mls @ 100 mls /hr IVPB Q8H-IV [facility]; Protocol Last Admin: 12/26/19 02:45 Dose: 100 mls/hr Levetiracetam (Keppra Injection -) 750 mg IVPB BID [facility] Last Admin: 12/25/19 21:39 Dose: 750 mg Lorazepam (Ativan Injection -) 1 mg IVPUSH Q6H PRN PRN Reason: FPR SEIZURES Ondansetron HCl (Zofran Injection) 4 mg IVPUSH Q4H PRN PRN Reason: NAUSEA AND/OR VOMITING Oxcarbazepine (Trileptal) 600 mg PO DAILY [facility] Last Admin: 12/25/19 10:35 Dose: 600 mg Oxcarbazepine (Trileptal) 900 mg PO HS [facility] Last Admin: 12/25/19 21:40 Dose: 900 mg Pantoprazole Sodium (Protonix Iv) 40 mg IVPUSH DAILY [facility] Last Admin: 12/25/19 09:31 Dose: 40 mg Silver Sulfadiazine (Silvadene -) 1 applic TP DAILY [facility] Topiramate (Topamax -) 100 mg PO BID [facility] Last Admin: 12/25/19 21:40 Dose: 100 mg GENERAL:Awake and alert HEAD: atraumatic EYES: Pupils equal, round and reactive to light, EARS, NOSE, THROAT: Moist mucous membranes. NECK: supple LUNGS: clear bilaterally HEART: regualar, no M/R/G ABDOMEN: soft NT LOWER EXTREMITIES: 2+ pulses, warm, well-perfused. No calf tenderness. No peripheral edema. SKIN: R foot with 3 x3 cm malleolus wound, no surrounding erythema, no pus or drainage CBCD WBC 5.1 K/mm3 (4.0-10.0) 12/26/19 05:38 RBC 3.46 M/mm3 (3.60-5.2) L 12/26/19 05:38 Hgb 10.5 GM/dL (10.7-15.3) L 12/26/19 05:38 Hct 30.3 % (32.4-45.2) L 12/26/19 05:38 MCV 87.6 fl (80-96) 12/26/19 05:38 MCHC 34.8 g/dl (32.0-36.0) 12/26/19 05:38 RDW 13.5 % (11.6-15.6) 12/26/19 05:38 Plt Count 147 K/MM3 (134-434) 12/26/19 05:38 MPV 10.1 fl (7.5-11.1) 12/26/19 05:38 CMP Sodium 141 mmol/L (136-145) 12/26/19 05:38 Potassium 3.5 mmol/L (3.5-5.1) 12/26/19 05:38 Chloride 115 mmol/L (98-107) H 12/26/19 05:38 Carbon Dioxide 19 mmol/L (21-32) L 12/26/19 05:38 Anion Gap 7 MMOL/L (8-16) L 12/26/19 05:38 BUN 6.2 mg/dL (7-18) L 12/26/19 05:38 Creatinine 0.4 mg/dL (0.55-1.3) L 12/26/19 05:38 Calcium 8.0 mg/dL (8.5-10.1) L 12/26/19 05:38 Total Bilirubin < 0.1 mg/dL (0.2-1) L 12/26/19 05:38 AST 12 U/L (15-37) L 12/26/19 05:38 ALT 29 U/L (13-61) 12/26/19 05:38 Alkaline Phosphatase 52 U/L (45-117) 12/26/19 05:38 Total Protein 5.5 g/dl (6.4-8.2) L 12/26/19 05:38 Albumin 2.8 g/dl (3.4-5.0) L 12/26/19 05:38 Microbiology 12/23/19 22:15 Blood - Peripheral Venous Blood Culture - Preliminary NO GROWTH OBTAINED AFTER 48 HOURS, INCUBATION TO CONTINUE FOR 3 DAYS. 12/24/19 22:00 Foot - Right Gram Stain - Final 12/24/19 14:57 Urine For Antigen Detection Legionella Antigen - Final 12/24/19 14:57 Urine For Antigen Detection Streptococcus pneumoniae Antigen (M - Final 12/24/19 11:11 Foot - Right Heel Wound Culture - Preliminary Streptococcus Pyogenes Grp A 12/23/19 22:15 Blood - Peripheral Venous Blood Culture - Preliminary Streptococcus Pyogenes Grp A 12/24/19 13:15 Cerebral Spinal Fluid - Lumbar Puncture Gram Stain - Final 12/24/19 13:15 Cerebral Spinal Fluid - Lumbar Puncture CSF Culture - Preliminary 12/23/19 23:27 Urine - Urine Clean Catch Urine Culture - Preliminary ASSESSMENT/PLAN: Patient is a 24 y/o female with a history of epilepsy who was admitted for cellulitis. R/O meningitis Gr A Strep Bacteremia , likely foot as source ABX per ID cont AE In for floor bed, awaiting [facility] [id number]
[2019-12-26] MEDS ORDERED: DEXTROSE 5%-WATER 200 ML IVPB ONE (08:09)
[2019-12-26] MEDS: SILVER SULFADIAZINE 1% TOP CREAM 50 GM JAR TP SCH (09:00)
--- NOTE | 2019-12-26 09:17 | PN ---
Progress Note (short form) - Note Progress Note: awake and alert Vital Signs Period Temp Pulse Resp BP Sys/Coleman Pulse Ox Last 24 Hr 98.2 F-99.2 F 87-112 15-20 87-112/51-72 100 cor-rrr lungs clear abd soft,nt ext right foot ulcer/bllister-some drainage noted no pain, no erythema CBC, BMP 12/26/19 05:38 12/26/19 05:[address]/abd ct - negative HIV negative Microbiology 12/23/19 22:15 Blood - Peripheral Venous Blood Culture - Preliminary NO GROWTH OBTAINED AFTER 48 HOURS, INCUBATION TO CONTINUE FOR 3 DAYS. 12/24/19 22:00 Foot - Right Gram Stain - Final 12/24/19 14:57 Urine For Antigen Detection Legionella Antigen - Final 12/24/19 14:57 Urine For Antigen Detection Streptococcus pneumoniae Antigen (M - Final 12/24/19 11:11 Foot - Right Heel Wound Culture - Preliminary Streptococcus Pyogenes Grp A 12/23/19 22:15 Blood - Peripheral Venous Blood Culture - Preliminary Streptococcus Pyogenes Grp A 12/24/19 13:15 Cerebral Spinal Fluid - Lumbar Puncture Gram Stain - Final 12/24/19 13:15 Cerebral Spinal Fluid - Lumbar Puncture CSF Culture - Preliminary 12/23/19 23:27 Urine - Urine Clean Catch Urine Culture - Preliminary 12/24/19 13:15 Cerebral Spinal Fluid - Lumbar Puncture Streptococcus pneumoniae Antigen (M - Final a/p group A strep bacteremia secondary to skin source, continue rocephin/clindamycin wound care for foot per podiatry repeat blood cultures pending seizure disorder- management per neurology
[2019-12-26] MEDS: levETIRAcetam 500 MG/5 ML INJECTION VIAL IVPB SCH ×2 (09:36→21:40)
[2019-12-26] MEDS: PANTOPRAZOLE SODIUM 40 MG VIAL IVPUSH SCH (09:36)
[2019-12-26] MEDS: TOPIRAMATE 100 MG TABLET PO SCH ×2 (11:04→22:38)
[2019-12-26] MEDS: OXcarbazepine 300 MG/5 ML UNIT DOSE CUPS PO SCH (11:05)
[2019-12-26 12:07] LABS: EPSTEIN BARR ANTIBODY IgM <36.0 U/mL (0.0-35.9)
--- NOTE | 2019-12-26 15:10 | PN ---
Teaching Attending Note Name of Resident: John Mclean ATTENDING PHYSICIAN STATEMENT I saw and evaluated the patient. I reviewed the resident's note and discussed the case with the resident. I agree with the resident's findings and plan as documented. SUBJECTIVE: Mental status improved; not likely meningitis 10 sys ROS done and negative aside from HPI OBJECTIVE: NAD AAO resting in bed NT ND +BS CN2-12 wnl, no fnd Foot wrapped, dressign c/d/i no spreading cellulitis Micro reviewed labs pending ASSESSMENT AND PLAN: Patient improved; less likely meningitis. Seizures +/- toxic metabolic process. FU ID recs, neuro recs. +Blood cx 1/2. Could be group A strep from burn. Continue, consider foot imaging now stable.
--- NOTE | 2019-12-26 15:11 | PN ---
Physical Exam: SUBJECTIVE: Patient seen and examined OBJECTIVE: Vital Signs Period Temp Pulse Resp BP Sys/Coleman Pulse Ox Last 24 Hr 98.2 F-99.2 F 87-112 12-20 82-112/51-76 100-100 GENERAL: The patient is awake, alert, and fully oriented, in no acute distress. HEAD: Normal with no signs of trauma. EYES: PERRL, extraocular movements intact, sclera anicteric, conjunctiva clear. No ptosis. ENT: Ears normal, nares patent, oropharynx clear without exudates, moist mucous membranes. NECK: Trachea midline, full range of motion, supple. LUNGS: Breath sounds equal, clear to auscultation bilaterally, no wheezes, no crackles, no accessory muscle use. HEART: Regular rate and rhythm, S1, S2 without murmur, rub or gallop. ABDOMEN: Soft, nontender, nondistended, normoactive bowel sounds, no guarding, no rebound, no hepatosplenomegaly, no masses. EXTREMITIES: 2+ pulses, warm, well-perfused, no edema. NEUROLOGICAL: Cranial nerves II through XII grossly intact. Normal speech, gait not observed. PSYCH: Normal mood, normal affect. SKIN: Warm, dry, normal turgor, no rashes or lesions noted Laboratory Results - last 24 hr 12/24/19 12/24/19 12/24/19 13:15 13:28 14:25 WBC RBC Hgb Hct MCV MCH MCHC RDW Plt Count MPV Absolute Neuts (auto) Neutrophils % Lymphocytes % Monocytes % Eosinophils % Basophils % Nucleated RBC % Sodium Potassium Chloride Carbon Dioxide Anion Gap BUN Creatinine Est GFR (CKD-EPI)AfAm Est GFR (CKD-EPI)NonAf Random Glucose Calcium Phosphorus Magnesium Total Bilirubin AST ALT Alkaline Phosphatase Total Protein Albumin Total T3 Fluid Chloride 116 L Rheumatoid Arth Biomark RPR Titer Nonreactive EBV IgG Ab EBV IgM Ab Hep C Ab Diagnostic <0.1 12/24/19 12/24/19 12/24/19 14:25 19:30 19:30 WBC RBC Hgb Hct MCV MCH MCHC RDW Plt Count MPV Absolute Neuts (auto) Neutrophils % Lymphocytes % Monocytes % Eosinophils % Basophils % Nucleated RBC % Sodium Potassium Chloride Carbon Dioxide Anion Gap BUN Creatinine Est GFR (CKD-EPI)AfAm Est GFR (CKD-EPI)NonAf Random Glucose Calcium Phosphorus Magnesium Total Bilirubin AST ALT Alkaline Phosphatase Total Protein Albumin Total T3 60.00 L Fluid Chloride Rheumatoid Arth Biomark 16.3 H RPR Titer EBV IgG Ab >600.0 H EBV IgM Ab <36.0 Hep C Ab Diagnostic 12/26/19 12/26/19 05:38 05:38 WBC 5.1 RBC 3.46 L Hgb 10.5 L Hct 30.3 L MCV 87.6 MCH 30.5 MCHC 34.8 RDW 13.5 Plt Count 147 MPV 10.1 Absolute Neuts (auto) 3.0 Neutrophils % 57.5 D Lymphocytes % 29.6 D Monocytes % 9.4 Eosinophils % 3.0 D Basophils % 0.5 Nucleated RBC % 0 Sodium 141 Potassium 3.5 Chloride 115 H Carbon Dioxide 19 L Anion Gap 7 L BUN 6.2 L Creatinine 0.4 L Est GFR (CKD-EPI)AfAm 166.61 Est GFR (CKD-EPI)NonAf 143.75 Random Glucose 105 Calcium 8.0 L Phosphorus 2.3 L Magnesium 1.9 Total Bilirubin < 0.1 L AST 12 L ALT 29 Alkaline Phosphatase 52 Total Protein 5.5 L Albumin 2.8 L Total T3 Fluid Chloride Rheumatoid Arth Biomark RPR Titer EBV IgG Ab EBV IgM Ab Hep C Ab Diagnostic Active Medications Generic Name Dose Route Start Last Admin Trade Name Freq PRN Reason Stop Dose Admin Clindamycin Phosphate 600 mg in 50 mls @ 100 mls/hr 12/24/19 15:15 12/26/19 09:31 Cleocin 600 Mg Premix Ivpb - IVPB 100 mls/hr Q8H-IV [facility] Administration Protocol Ceftriaxone Sodium 2 gm/ 100 mls @ 100 mls/hr 12/26/19 21:00 Dextrose IVPB DAILY@2100 [facility] Protocol Levetiracetam 750 mg 12/25/19 10:00 12/26/19 09:36 Keppra Injection - IVPB 750 mg BID [facility] Administration Lorazepam 1 mg 12/24/19 16:10 Ativan Injection - IVPUSH Q6H PRN FPR SEIZURES Ondansetron HCl 4 mg 12/25/19 00:28 Zofran Injection IVPUSH Q4H PRN NAUSEA AND/OR VOMITING Oxcarbazepine 600 mg 12/25/19 10:00 12/26/19 11:05 Trileptal PO 600 mg DAILY [facility] Administration Oxcarbazepine 900 mg 12/25/19 22:00 02/21/20 21:40 Trileptal PO 900 mg HS [facility] Administration Pantoprazole Sodium 40 mg 12/24/19 15:15 12/26/19 09:36 Protonix Iv IVPUSH 40 mg DAILY [facility] Administration Silver Sulfadiazine 1 applic 12/26/19 10:00 12/26/19 09:00 Silvadene - TP 1 applic DAILY [facility] Administration Topiramate 100 mg 12/25/19 10:00 12/26/19 11:04 Topamax - PO 100 mg BID [facility] Administration ASSESSMENT AND PLAN: Patient improved; less likely meningitis. Seizures +/- toxic metabolic process. FU ID recs, neuro recs. +Blood cx 1/2. Could be group A strep from burn. Continue, consider foot imaging now stable. -Bacteremia -Sepsis -Burn to foot, podiatry following, with cellulitis, <5% SA -Seizures, neuro followingm, on home AED dose -Toxic metabolic encephalopathy, improved Full Code Continue iv abx per ID Visit type - Emergency Visit Emergency Visit: Yes ED Registration Date: 12/24/19 Care time: The patient presented to the Emergency Department on the above date and was hospitalized for further evaluation of their emergent condition. - New Patient This patient is new to me today: No - Critical Care Critical Care patient: No
[2019-12-26 15:45] VITALS: BMI 22.6
[2019-12-26] MEDS ORDERED: LORazepam 2 MG/ML SDV VIAL IVPUSH PRN (17:27)
[2019-12-26] MEDS ORDERED: ONDANSETRON 4 MG/2 ML VIAL IVPUSH PRN (17:27)
[2019-12-26] MEDS ORDERED: PT OWN MED DRAWER 7, Y5N ONE (21:32)
[2019-12-26] MEDS ORDERED: DEXTROSE 5%-WATER 100 ML IVPB ONE (21:33)
[2019-12-26] MEDS: CEFTRIAXONE 2 GM in DEXTROSE 5%-WATER 100 ML IVPB SCH (21:40)
[2019-12-26] MEDS: OXcarbazepine 300 MG/5 ML 250 ML BULK BOTTLE PO SCH (22:38)
[2019-12-27] MEDS: CLINDAMYCIN 600MG PREMIX IVPB 600 MG/50 ML BAG IVPB SCH ×3 (02:25→18:10)
[2019-12-27] MEDS ORDERED: PT OWN MED DRAWER 7, Y5N ONE ×2 (10:12→21:14)
[2019-12-27] MEDS: PANTOPRAZOLE SODIUM 40 MG VIAL IVPUSH SCH (10:28)
[2019-12-27] MEDS: levETIRAcetam 500 MG/5 ML INJECTION VIAL IVPB SCH ×2 (10:28→21:26)
[2019-12-27] MEDS: OXcarbazepine 300 MG/5 ML UNIT DOSE CUPS PO SCH (10:29)
[2019-12-27] MEDS: TOPIRAMATE 100 MG TABLET PO SCH ×2 (10:29→21:27)
--- NOTE | 2019-12-27 12:18 | PN ---
Progress Note (short form) - Note Progress Note: awake and alert no complaints Vital Signs Period Temp Pulse Resp BP Sys/Coleman Pulse Ox Last 24 Hr 98.0 F-99.1 F 97-106 14-158 100-107/59-77 97 cor-rrr lungs clear abd soft,nt foot with plantar ulcer/blister- still some drainage malleolar ulcer- no drainage CBC, BMP 12/26/19 05:38 12/26/19 05:38 Microbiology 12/24/19 22:00 Foot - Right Gram Stain - Final 12/24/19 22:00 Foot - Right Wound Culture - Preliminary Staphylococcus Aureus Staphylococcus Coagulase Neg 12/24/19 13:15 Cerebral Spinal Fluid - Lumbar Puncture Gram Stain - Final 12/24/19 13:15 Cerebral Spinal Fluid - Lumbar Puncture CSF Culture - Final 12/26/19 05:38 Blood - Peripheral Venous Blood Culture - Preliminary NO GROWTH OBTAINED AFTER 24 HOURS, INCUBATION TO CONTINUE FOR 4 DAYS. 12/26/19 05:45 Blood - Peripheral Venous Blood Culture - Preliminary NO GROWTH OBTAINED AFTER 24 HOURS, INCUBATION TO CONTINUE FOR 4 DAYS. 12/23/19 22:15 Blood - Peripheral Venous Blood Culture - Preliminary NO GROWTH OBTAINED AFTER 72 HOURS, INCUBATION TO CONTINUE FOR 2 DAYS. 12/24/19 11:11 Foot - Right Heel Wound Culture - Preliminary Streptococcus Pyogenes Grp A Pending Organism 12/23/19 22:15 Blood - Peripheral Venous Blood Culture - Final Streptococcus Pyogenes Grp A 12/24/19 14:57 Urine For Antigen Detection Legionella Antigen - Final 12/24/19 14:57 Urine For Antigen Detection Streptococcus pneumoniae Antigen (M - Final 12/23/19 23:27 Urine - Urine Clean Catch Urine Culture - Preliminary 12/24/19 13:15 Cerebral Spinal Fluid - Lumbar Puncture Streptococcus pneumoniae Antigen (M - Final HIV negative a/p group A strep bacteremia secondary to skin source, continue rocephin/clindamycin wound care for foot per podiatry repeat blood cultures negative seizure disorder- management per neurology
[2019-12-27] MEDS: SILVER SULFADIAZINE 1% TOP CREAM 50 GM JAR TP SCH (14:28)
--- NOTE | 2019-12-27 15:27 | PN ---
Physical Exam: SUBJECTIVE: Patient seen and examined at bedside this morning. No acute events overnight. PAtient reports feeling well and has no complaints. OBJECTIVE: Vital Signs Temperature 99.1 F 12/27/19 06:00 Pulse Rate 97 H 12/27/19 06:00 Respiratory Rate 16 12/27/19 09:00 Blood Pressure 100/62 12/27/19 06:00 O2 Sat by Pulse Oximetry (%) 97 12/27/19 09:00 GENERAL: The patient is awake, alert, and fully oriented, in no acute distress. HEAD: Normal with no signs of trauma. EYES: PERRLA, EOMI, conjunctiva clear. ENT: moist mucous membranes. NECK: Trachea midline, full range of motion, supple. LUNGS: Breath sounds equal, clear to auscultation bilaterally. HEART: Regular rate and rhythm, S1, S2 without murmur, rub or gallop. ABDOMEN: Soft, nontender, nondistended, normoactive bowel sounds. EXTREMITIES: 2+ pulses intact b/l UE & LE. On R lateral malleolus, 1-2x3cm and 1 - 1x2cm wound, clear centers w/ blackened tissue surrounding edges, non purulent , slightly bloody drainage. On ventral R 1st metatarsal, 2-3 ~0.5cm wounds, non purulent non bloody. R 1st toe distal blister. On L 1st UE digit, distal healing wound noted, non bloody non purulent. NEUROLOGICAL: Cranial nerves II through XII grossly intact. Normal speech, gait not observed. PSYCH: Normal mood, normal affect. SKIN: Warm, dry, normal turgor. Laboratory Results - last 24 hr 12/24/19 14:25 TANNA Screen Negative Active Medications Generic Name Dose Route Start Last Admin Trade Name Freq PRN Reason Stop Dose Admin Ceftriaxone Sodium 2 gm/ 100 mls @ 100 mls/hr 12/26/19 21:00 12/26/19 21:40 Dextrose IVPB 100 mls/hr DAILY@2100 [facility] Administration Protocol Clindamycin Phosphate 600 mg in 50 mls @ 100 mls/hr 12/26/19 18:00 12/27/19 10:29 Cleocin 600 Mg Premix Ivpb - IVPB 100 mls/hr Q8H-IV [facility] Administration Protocol Levetiracetam 750 mg 12/26/19 22:00 12/27/19 10:28 Keppra Injection - IVPB 750 mg BID [facility] Administration Lorazepam 1 mg 12/26/19 17:27 Ativan Injection - IVPUSH Q6H PRN FPR SEIZURES Ondansetron HCl 4 mg 12/26/19 17:27 Zofran Injection IVPUSH Q4H PRN NAUSEA AND/OR VOMITING Oxcarbazepine 600 mg 12/27/19 10:00 12/27/19 10:29 Trileptal PO 600 mg DAILY [facility] Administration Oxcarbazepine 900 mg 12/26/19 22:00 12/26/19 22:38 Trileptal PO 900 mg HS [facility] Administration Pantoprazole Sodium 40 mg 12/27/19 10:00 12/27/19 10:28 Protonix Iv IVPUSH 40 mg DAILY [facility] Administration Silver Sulfadiazine 1 applic 12/26/19 10:00 12/27/19 14:28 Silvadene - TP 1 applic DAILY [facility] Administration Topiramate 100 mg 12/26/19 22:00 12/27/19 10:29 Topamax - PO 100 mg BID [facility] Administration ASSESSMENT/PLAN: Patient is a 24 y/o F PMH epilepsy presented to the ED c/o of right foot wounds , was admitted for sepsis and subsequently found have bacteremia. #Sepsis 2/2 RLE cellulitis, Grp A strep bacteremia -R foot X-ray final read- soft tissue swelling, no signs of air. -blood cultures- Group A strep, repeat blood cultures showed no growth -wound culture-Group A strep, staph aureus, staph coag neg -RLE cleaned w/ saline, wrapped w/ kerlex -ID consulted-- Dr Ospina appreciated consult -Continue Ceftriaxone and Clindamycin -Podiatry consulted. Recommendations appreciated. -MRI is ordered to rule out osteo and if positive can biopsy as needed -no apparent acute podiatric intervention at this time -Would likely benefit from HBO so consult placed -daily dressing changes with silvadene and DSD to the miles. #Epilepsy -continue home AEDs- Keppra -seizure & fall precautions -Neurology following #RUL nodule Chest CT- .2 cm RUL nodule- will need to f/u with CT in 3 month #Low TSH -Free T4 normal -T3 ordered- will f/u #FEN -Not on any standing fluid -replete lytes as needed -Regular diet #DVT PPX -Heparin 5000u sq tid #Dispo -full code -admit to med surg Visit type - Emergency Visit Emergency Visit: Yes ED Registration Date: 12/24/19 Care time: The patient presented to the Emergency Department on the above date and was hospitalized for further evaluation of their emergent condition. - New Patient This patient is new to me today: Yes Date on this admission: 12/27/19 - Critical Care Critical Care patient: No ATTENDING PHYSICIAN STATEMENT I saw and evaluated the patient. I reviewed the resident's note and discussed the case with the resident. I agree with the resident's findings and plan as documented. SUBJECTIVE: OBJECTIVE: ASSESSMENT AND PLAN:
[2019-12-27] MEDS ORDERED: DEXTROSE 5%-WATER 100 ML IVPB ONE (21:15)
[2019-12-27] MEDS: CEFTRIAXONE 2 GM in DEXTROSE 5%-WATER 100 ML IVPB SCH (21:25)
[2019-12-27] MEDS: HEPARIN NA (PORCINE) 5,000 UNITS/ML 1ML VIAL SQ SCH (21:26)
[2019-12-27] MEDS: OXcarbazepine 300 MG/5 ML 250 ML BULK BOTTLE PO SCH (21:27)
[2019-12-28] MEDS: CLINDAMYCIN 600MG PREMIX IVPB 600 MG/50 ML BAG IVPB SCH ×3 (01:55→17:17)
[2019-12-28] MEDS: HEPARIN NA (PORCINE) 5,000 UNITS/ML 1ML VIAL SQ SCH ×3 (06:15→23:03)
--- NOTE | 2019-12-28 08:49 | PN ---
Progress Note (short form) - Note Progress Note: Neurology CHIEF COMPLAINT: right foot wound PCP: none HISTORY OF PRESENT ILLNESS: 24 y.o. F PMH epilepsy presented for RLE wound. Patient stated 2 weeks ago she was carrying a pot of boiling water when it fell onto her right foot. She has not been in significant pain but has been developing a wound on her R foot so decided to come to the hospital. Patient noted the wound has been increasing in size; she now has a wound on RLE lateral malleolus, RLE ventral 1st metatarsal, and a developing blister on the distal portion of her R great toe. She also has a small wound on the distal aspect of her left upper etxremity 1st digit. She has not taken any medications at home to help with the pain. Patient is able to ambulate. She is afebrile. CT of cervical spine performed and showed no evidence of acute fracture, compression deformities, subluxation, prevertebral soft tissue swelling. CT head completed and demonstrated no acute pathology. On 12/24, the patient suddenly and rapidly had a deterioration of mental status and I was contacted by the resident. Please see notes in the chart for further details, which had reviewed. She completed spinal tap which showed 0 WBC although there was increase in glucose but normal protein which does not seem to be consistent with any typical pattern of meningitis. Repeated CT of head also reviewed and showed no interval change compared to prior. Is being treated uunderlying infection and I reviewed notes from infectious disease specialist over the weekend, remains on IV antibiotics. No abnormal movements to suggest any seizures at this time. Sheseems neurologically stable and was able to tell me her current location as well as month and year. Significantly improved as compared to prior Active Medications Heparin Sodium (Porcine) (Heparin -) 5,000 unit SQ TID [facility] Last Admin: 12/28/19 06:15 Dose: 5,000 unit Ceftriaxone Sodium 2 gm/ (Dextrose) 100 mls @ 100 mls/hr IVPB DAILY@2100 [facility]; Protocol Last Admin: 12/27/19 21:25 Dose: 100 mls/hr Clindamycin Phosphate (Cleocin 600 Mg Premix Ivpb -) 600 mg in 50 mls @ 100 mls /hr IVPB Q8H-IV [facility]; Protocol Last Admin: 12/28/19 01:55 Dose: 100 mls/hr Levetiracetam (Keppra Injection -) 750 mg IVPB BID [facility] Last Admin: 12/27/19 21:26 Dose: 750 mg Lorazepam (Ativan Injection -) 1 mg IVPUSH Q6H PRN PRN Reason: FPR SEIZURES Ondansetron HCl (Zofran Injection) 4 mg IVPUSH Q4H PRN PRN Reason: NAUSEA AND/OR VOMITING Oxcarbazepine (Trileptal) 600 mg PO DAILY [facility] Last Admin: 12/27/19 10:29 Dose: 600 mg Oxcarbazepine (Trileptal) 900 mg PO HS [facility] Last Admin: 12/27/19 21:27 Dose: 900 mg Pantoprazole Sodium (Protonix Iv) 40 mg IVPUSH DAILY [facility] Last Admin: 12/27/19 10:28 Dose: 40 mg Silver Sulfadiazine (Silvadene -) 1 applic TP DAILY [facility] Last Admin: 12/27/19 14:28 Dose: 1 applic Topiramate (Topamax -) 100 mg PO BID [facility] Last Admin: 12/27/19 21:27 Dose: 100 mg PHYSICAL EXAMINATION Vital Signs Period Temp Pulse Resp BP Sys/Coleman Pulse Ox Last 24 Hr 98.5 F-98.9 F 67-107 16-18 103-112/58-65 97-98 GENERAL: Awake, alert, and fully oriented, in no acute distress. HEENT: NCAT sclera clear MMM LUNGS: Breath sounds equal, clear to auscultation bilaterally. No wheezes, and no crackles. No accessory muscle use. HEART: tachycardic, normal S1 and S2 without murmurs ABDOMEN: Soft, nontender, not distended, + bowel sounds MUSCULOSKELETAL: Full ROM all joints EXTREMITIES: 2+ pulses intact b/l UE & LE. On R lateral malleolus, 1-2x3cm and 1 - 1z2cm wound, clear centers w/ blackened tissue surrounding edges, non purulent , slightly bloody drainage. On ventral R 1st metatarsal, 2-3 ~0.5cm wounds, non purulent non bloody. R 1st toe distal blister. On L 1st UE digit, distal healing wound noted, non bloody non purulent. NEURO: Decr sensation to RLE @ dorsal foot,, cranial nerves intact, moves all extremities equally, finger-nose normal CBCD WBC 5.1 K/mm3 (4.0-10.0) 12/26/19 05:38 RBC 3.46 M/mm3 (3.60-5.2) L 12/26/19 05:38 Hgb 10.5 GM/dL (10.7-15.3) L 12/26/19 05:38 Hct 30.3 % (32.4-45.2) L 12/26/19 05:38 MCV 87.6 fl (80-96) 12/26/19 05:38 MCHC 34.8 g/dl (32.0-36.0) 12/26/19 05:38 RDW 13.5 % (11.6-15.6) 12/26/19 05:38 Plt Count 147 K/MM3 (134-434) 12/26/19 05:38 MPV 10.1 fl (7.5-11.1) 12/26/19 05:38 CMP Sodium 141 mmol/L (136-145) 12/26/19 05:38 Potassium 3.5 mmol/L (3.5-5.1) 12/26/19 05:38 Chloride 115 mmol/L (98-107) H 12/26/19 05:38 Carbon Dioxide 19 mmol/L (21-32) L 12/26/19 05:38 Anion Gap 7 MMOL/L (8-16) L 12/26/19 05:38 BUN 6.2 mg/dL (7-18) L 12/26/19 05:38 Creatinine 0.4 mg/dL (0.55-1.3) L 12/26/19 05:38 Random Glucose 105 mg/dL (74-106) 12/26/19 05:38 Calcium 8.0 mg/dL (8.5-10.1) L 12/26/19 05:38 Total Bilirubin < 0.1 mg/dL (0.2-1) L 12/26/19 05:38 AST 12 U/L (15-37) L 12/26/19 05:38 ALT 29 U/L (13-61) 12/26/19 05:38 Alkaline Phosphatase 52 U/L (45-117) 12/26/19 05:38 Total Protein 5.5 g/dl (6.4-8.2) L 12/26/19 05:38 Albumin 2.8 g/dl (3.4-5.0) L 12/26/19 05:38 ASSESSMENT/PLAN: 24 y.o. F H epilepsy presented for RLE wound. Patient stated 2 weeks ago she was carrying a pot of boiling water when it fell onto her right foot. She has not been in significant pain but has been developing a wound on her R foot so decided to come to the hospital. Patient noted the wound has been increasing in size; she now has a wound on RLE lateral malleolus, RLE ventral 1st metatarsal, and a developing blister on the distal portion of her R great toe. She also has a small wound on the distal aspect of her left upper etxremity 1st digit. She has not taken any medications at home to help with the pain. Patient is able to ambulate. She is afebrile. CT of cervical spine performed and showed no evidence of acute fracture, compression deformities, subluxation, prevertebral soft tissue swelling. CT head completed and demonstrated no acute pathology. On 12/24, the patient suddenly and rapidly had a deterioration of mental status and I was contacted by the resident. Please see notes in the chart for further details, which had reviewed. She completed spinal tap which showed 0 WBC although there was increase in glucose but normal protein which does not seem to be consistent with any typical pattern of meningitis. RRepeated CT of head also reviewed and showed no interval change compared to prior. Is being treated uunderlying infection and I reviewed notes from infectious disease specialist over the weekend, remains on IV antibiotics. No abnormal movements to suggest any seizures at this time. Sheseems neurologically stable and was able to tell me her current location as well as month and year. Significantly improved as compared to prior. Continued infectious mgmt, follow-up ID recommendations. Continue current seizure regimen, continue close monitoring of neurologic status , maintain adequate by mouth and IV hydration.
[2019-12-28 08:54] LABS: BASO % 0.8 % (0-2.0); EOS % 6.3 % (0-4.5); HEMATOCRIT 35.6 % (32.4-45.2); LYMPH % 42.6 % (8-40); MCH 29.5 pg (25.7-33.7); MCHC 33.8 g/dl (32.0-36.0); MEAN CELL VOLUME 87.5 fl (80-96); MEAN PLT VOLUME 9.2 fl (7.5-11.1); MONO % 8.2 % (3.8-10.2); NEUT % 42.1 % (42.8-82.8); PLATELET COUNT 225 K/MM3 (134-434); RBC 4.07 M/mm3 (3.60-5.2); RDW 13.8 % (11.6-15.6); WHITE BLOOD COUNT 5.6 K/mm3 (4.0-10.0)
[2019-12-28] MEDS ORDERED: PT OWN MED DRAWER 7, Y5N ONE (09:10)
[2019-12-28 09:29] LABS: ALBUMIN 3.3 g/dl (3.4-5.0); BILIRUBIN,TOTAL 0.3 mg/dL (0.2-1); BLOOD UREA NITROGEN 14.6 mg/dL (7-18); CREATININE 0.4 mg/dL (0.55-1.3); MAGNESIUM 2.2 mg/dL (1.8-2.4); PHOSPHOROUS 4.4 mg/dL (2.5-4.9); POTASSIUM 3.9 mmol/L (3.5-5.1); TOT PROT 6.8 g/dl (6.4-8.2)
[2019-12-28] MEDS: levETIRAcetam 500 MG/5 ML INJECTION VIAL IVPB SCH ×2 (09:35→23:06)
[2019-12-28] MEDS: PANTOPRAZOLE SODIUM 40 MG VIAL IVPUSH SCH (09:37)
[2019-12-28] MEDS: SILVER SULFADIAZINE 1% TOP CREAM 50 GM JAR TP SCH (09:38)
[2019-12-28] MEDS: TOPIRAMATE 100 MG TABLET PO SCH ×2 (09:38→23:10)
[2019-12-28] MEDS: OXcarbazepine 300 MG/5 ML UNIT DOSE CUPS PO SCH (09:38)
--- NOTE | 2019-12-28 13:27 | PN ---
Progress Note (short form) - Note Progress Note: awake and alert no complaints Vital Signs Period Temp Pulse Resp BP Sys/Coleman Pulse Ox Last 24 Hr 97.7 F-98.9 F 67-107 18-18 103-112/58-65 98 cor-rrr lungs clear abd soft,nt foot with plantar ulcer/blister- still some drainage malleolar ulcer- no drainage CBC, BMP 12/28/19 07:40 12/28/19 07:40 Microbiology 12/24/19 11:11 Foot - Right Heel Gram Stain - Final 12/24/19 11:11 Foot - Right Heel Wound Culture - Final Streptococcus Pyogenes Grp A Staphylococcus Aureus 12/23/19 23:27 Urine - Urine Clean Catch Urine Culture - Preliminary 12/26/19 05:38 Blood - Peripheral Venous Blood Culture - Preliminary NO GROWTH OBTAINED AFTER 48 HOURS, INCUBATION TO CONTINUE FOR 3 DAYS. 12/26/19 05:45 Blood - Peripheral Venous Blood Culture - Preliminary NO GROWTH OBTAINED AFTER 48 HOURS, INCUBATION TO CONTINUE FOR 3 DAYS. 12/23/19 22:15 Blood - Peripheral Venous Blood Culture - Preliminary NO GROWTH OBTAINED AFTER 96 HOURS, INCUBATION TO CONTINUE FOR 1 DAYS. 12/24/19 22:00 Foot - Right Gram Stain - Final 12/24/19 22:00 Foot - Right Wound Culture - Final Staphylococcus Aureus Staphylococcus Coagulase Neg 12/24/19 13:15 Cerebral Spinal Fluid - Lumbar Puncture Gram Stain - Final 12/24/19 13:15 Cerebral Spinal Fluid - Lumbar Puncture CSF Culture - Final 12/23/19 22:15 Blood - Peripheral Venous Blood Culture - Final Streptococcus Pyogenes Grp A 12/24/19 14:57 Urine For Antigen Detection Legionella Antigen - Final 12/24/19 14:57 Urine For Antigen Detection Streptococcus pneumoniae Antigen (M - Final 12/24/19 13:15 Cerebral Spinal Fluid - Lumbar Puncture Streptococcus pneumoniae Antigen (M - Final HIV negative a/p group A strep bacteremia secondary to skin source, continue rocephin/clindamycin day #5 wound care for foot per podiatry esr/crp in am wound culture MSSA and Group a strep repeat blood cultures negative seizure disorder- management per neurology
--- NOTE | 2019-12-28 15:58 | PN ---
Physical Exam: SUBJECTIVE: Patient seen and examined. Pt is much more improved today. Pt is sitting up, tolerating diet, using the bathroom as needed. Mental status has significantly improved. Denies any seizures overnight. Denies f/c/sob/cp/ abdominal pain. OBJECTIVE: Vital Signs Period Temp Pulse Resp BP Sys/Coleman Pulse Ox Last 24 Hr 97.7 F-98.7 F 67-105 18-18 103-112/58-63 98 GENERAL: Awake, alert, and fully oriented. Pt is good state of health. Cooperative and conversational. LUNGS: CTAB HEART: tachycardic, normal S1 and S2 without murmurs ABDOMEN: Soft, nontender, not distended, + bowel sounds EXTREMITIES: 2+ pulses intact b/l UE & LE. On R lateral malleolus, 1-2x3cm and 1 - 1x2cm wound, clear centers w/ blackened tissue surrounding edges, non purulent , slightly bloody drainage. On ventral R 1st metatarsal, 2-3 ~0.5cm wounds, non purulent non bloody. R 1st toe distal blister. On L 1st UE digit, distal healing wound noted, non bloody non purulent. Wounds dressed. NEURO: PERRLA, CN2-12 intact. Strength weak overall, sensation intact Laboratory Results - last 24 hr 12/24/19 12/24/19 12/24/19 12:23 13:15 13:28 WBC RBC Hgb Hct MCV MCH MCHC RDW Plt Count MPV Absolute Neuts (auto) Neutrophils % Lymphocytes % Monocytes % Eosinophils % Basophils % Nucleated RBC % Sodium Potassium Chloride Carbon Dioxide Anion Gap BUN Creatinine Est GFR (CKD-EPI)AfAm Est GFR (CKD-EPI)NonAf Random Glucose Calcium Phosphorus Magnesium Total Bilirubin AST ALT Alkaline Phosphatase Total Protein Albumin CSF Albumin 10 L Topiramate 10.5 Levetiracetam 83.4 H HSV I DNA Quant (PCR) HSV II DNA Quant (PCR) 12/24/19 12/24/19 12/25/19 13:28 14:15 06:25 WBC RBC Hgb Hct MCV MCH MCHC RDW Plt Count MPV Absolute Neuts (auto) Neutrophils % Lymphocytes % Monocytes % Eosinophils % Basophils % Nucleated RBC % Sodium Potassium Chloride Carbon Dioxide Anion Gap BUN Creatinine Est GFR (CKD-EPI)AfAm Est GFR (CKD-EPI)NonAf Random Glucose Calcium Phosphorus Magnesium Total Bilirubin AST ALT Alkaline Phosphatase Total Protein Albumin CSF Albumin Topiramate 2.7 Levetiracetam 82.0 H HSV I DNA Quant (PCR) Negative HSV II DNA Quant (PCR) Negative 12/28/19 12/28/19 07:40 07:40 WBC 5.6 RBC 4.07 Hgb 12.0 Hct 35.6 D MCV 87.5 MCH 29.5 MCHC 33.8 RDW 13.8 Plt Count 225 D MPV 9.2 Absolute Neuts (auto) 2.4 Neutrophils % 42.1 L D Lymphocytes % 42.6 H D Monocytes % 8.2 Eosinophils % 6.3 H D Basophils % 0.8 Nucleated RBC % 0 Sodium 138 Potassium 3.9 Chloride 110 H Carbon Dioxide 20 L Anion Gap 8 BUN 14.6 Creatinine 0.4 L Est GFR (CKD-EPI)AfAm 166.61 Est GFR (CKD-EPI)NonAf 143.75 Random Glucose 88 Calcium 9.0 Phosphorus 4.4 Magnesium 2.2 Total Bilirubin 0.3 AST 8 L ALT 23 Alkaline Phosphatase 55 Total Protein 6.8 Albumin 3.3 L CSF Albumin Topiramate Levetiracetam HSV I DNA Quant (PCR) HSV II DNA Quant (PCR) Active Medications Generic Name Dose Route Start Last Admin Trade Name Freq PRN Reason Stop Dose Admin Heparin Sodium (Porcine) 5,000 unit 12/27/19 22:00 12/28/19 14:01 Heparin - SQ 5,000 unit TID WALTER Administration Ceftriaxone Sodium 2 gm/ 100 mls @ 100 mls/hr 12/26/19 21:00 12/27/19 21:25 Dextrose IVPB 100 mls/hr DAILY@2100 WALTER Administration Protocol Clindamycin Phosphate 600 mg in 50 mls @ 100 mls/hr 12/26/19 18:00 12/28/19 09:34 Cleocin 600 Mg Premix Ivpb - IVPB 100 mls/hr Q8H-IV WALTER Administration Protocol Levetiracetam 750 mg 12/26/19 22:00 12/28/19 09:35 Keppra Injection - IVPB 750 mg BID WALTER Administration Lorazepam 1 mg 12/26/19 17:27 Ativan Injection - IVPUSH Q6H PRN FPR SEIZURES Ondansetron HCl 4 mg 12/26/19 17:27 Zofran Injection IVPUSH Q4H PRN NAUSEA AND/OR VOMITING Oxcarbazepine 600 mg 12/27/19 10:00 12/28/19 09:38 Trileptal PO 600 mg DAILY WALTER Administration Oxcarbazepine 900 mg 12/26/19 22:00 12/27/19 21:27 Trileptal PO 900 mg HS WALTER Administration Pantoprazole Sodium 40 mg 12/29/19 10:00 Protonix - PO DAILY WALTER Silver Sulfadiazine 1 applic 12/26/19 10:00 12/28/19 09:38 Silvadene - TP 1 applic DAILY WALTER Administration Topiramate 100 mg 12/26/19 22:00 12/28/19 09:38 Topamax - PO 100 mg BID WALTER Administration ASSESSMENT/PLAN: 24 y/o F PMH epilepsy presented to the ED c/o of right foot wounds 2/2 to dropping hot boiling water on herself is admitted for sepsis vs meningitis r/o #Sepsis likely 2/2 RLE cellulitis Seizure precautions neuro checks EEG ordered- pending results ECHO: taken- pending read TANNA, Chlam/GC ordered EBV- Ig>600 RA factor- > 16.3 Wound care consulted-- Dr. Guzman- pending Podiatry- pending Discussed with Dr. Lane- consult appreciated. Will work up for likely causes such as autoimmune or thyroid disease Chest CT- .2 cm RUL nodule- will need to f/u with CT in 3 month Ceftriaxone + Clindamycin day #5 esr/crp in am Discussed w/ ID, pt will need longer inpt Abx treatment. #Epilepsy seizure & fall precautions keppra levels- 82 elevated On Keppra, oxycarbazepine and toperimate #Hypokalemia KCl repletion #Low TSH Free T4 normal T3 60- low #N/v bilious vomit- resolved Protonix 40 IV Zofran 4 mg now- if still nauseous can icnrease to Zofran 8mg, if still nauseous consider Reglan. Abd CT- shows small fluid in the cul-de sac likely physiologic #FEN replete lytes as needed Regular diet #DVT PPX #Dispo: cont abx, cont keppra, f/u with pt's family, f/u podiatry and vascular recom, MRI? Visit type - Emergency Visit Emergency Visit: Yes ED Registration Date: 12/24/19 Care time: The patient presented to the Emergency Department on the above date and was hospitalized for further evaluation of their emergent condition. - New Patient This patient is new to me today: Yes Date on this admission: 12/28/19 - Critical Care Critical Care patient: No - Discharge Referral Referred to [facility] Med P.C.: No ATTENDING PHYSICIAN STATEMENT I saw and evaluated the patient. I reviewed the resident's note and discussed the case with the resident. I agree with the resident's findings and plan as documented. SUBJECTIVE: OBJECTIVE: ASSESSMENT AND PLAN:
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
[2019-12-28] MEDS ORDERED: DEXTROSE 5%-WATER 100 ML IVPB ONE (22:54)
[2019-12-28] MEDS: CEFTRIAXONE 2 GM in DEXTROSE 5%-WATER 100 ML IVPB SCH (23:03)
[2019-12-28] MEDS: OXcarbazepine 300 MG/5 ML 250 ML BULK BOTTLE PO SCH (23:28)
[2019-12-29] MEDS: CLINDAMYCIN 600MG PREMIX IVPB 600 MG/50 ML BAG IVPB SCH ×3 (02:43→17:51)
[2019-12-29] MEDS: HEPARIN NA (PORCINE) 5,000 UNITS/ML 1ML VIAL SQ SCH ×3 (06:36→22:26)
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
[2019-12-29] MEDS ORDERED: PT OWN MED DRAWER 7, Y5N ONE (09:01)
[2019-12-29 09:02] LABS: HEMATOCRIT 35.4 % (32.4-45.2); HEMOGLOBIN 11.9 GM/dL (10.7-15.3); MCH 29.6 pg (25.7-33.7); MCHC 33.6 g/dl (32.0-36.0); MEAN PLT VOLUME 9.3 fl (7.5-11.1); PLATELET COUNT 235 K/MM3 (134-434); RBC 4.02 M/mm3 (3.60-5.2); RDW 13.7 % (11.6-15.6); WHITE BLOOD COUNT 6.3 K/mm3 (4.0-10.0)
[2019-12-29] MEDS: PANTOPRAZOLE 40 MG TABLET PO SCH (09:04)
[2019-12-29] MEDS: OXcarbazepine 300 MG/5 ML UNIT DOSE CUPS PO SCH (09:04)
[2019-12-29] MEDS: TOPIRAMATE 100 MG TABLET PO SCH ×2 (09:04→22:30)
[2019-12-29] MEDS: levETIRAcetam 500 MG/5 ML INJECTION VIAL IVPB SCH ×2 (09:05→22:26)
[2019-12-29] MEDS: SILVER SULFADIAZINE 1% TOP CREAM 50 GM JAR TP SCH (09:05)
[2019-12-29 09:35] LABS: ALBUMIN 3.3 g/dl (3.4-5.0); BILIRUBIN,TOTAL 0.2 mg/dL (0.2-1); BLOOD UREA NITROGEN 12.6 mg/dL (7-18); CALCIUM 8.7 mg/dL (8.5-10.1); CREATININE 0.5 mg/dL (0.55-1.3); TOT PROT 6.8 g/dl (6.4-8.2)
--- NOTE | 2019-12-29 13:34 | PN ---
Physical Exam: SUBJECTIVE: Patient seen and examined. Pt is much more improved today. Pt is sitting up, tolerating diet, using the bathroom as needed. Mental status has significantly improved. Denies any seizures overnight. Denies f/c/sob/cp/ abdominal pain. OBJECTIVE: Vital Signs Period Temp Pulse Resp BP Sys/Coleman Pulse Ox Last 24 Hr 98.2 F-99.4 F 86-110 18-18 101-112/55-69 97 GENERAL: Awake, alert, and fully oriented. Pt is good state of health. Cooperative and conversational. LUNGS: CTAB HEART: tachycardic, normal S1 and S2 without murmurs ABDOMEN: Soft, nontender, not distended, + bowel sounds EXTREMITIES: 2+ pulses intact b/l UE & LE. On R lateral malleolus, 1-2x3cm and 1 - 1x2cm wound, clear centers w/ blackened tissue surrounding edges, non purulent , slightly bloody drainage. On ventral R 1st metatarsal, 2-3 ~0.5cm wounds, non purulent non bloody. R 1st toe distal blister. On L 1st UE digit, distal healing wound noted, non bloody non purulent. Wounds dressed. NEURO: PERRLA, CN2-12 intact. Strength weak overall, sensation intact Laboratory Results - last 24 hr 12/24/19 12/24/19 12/24/19 13:15 13:28 19:30 WBC RBC Hgb Hct MCV MCH MCHC RDW Plt Count MPV ESR Sodium Potassium Chloride Carbon Dioxide Anion Gap BUN Creatinine Est GFR (CKD-EPI)AfAm Est GFR (CKD-EPI)NonAf Random Glucose Calcium Total Bilirubin AST ALT Alkaline Phosphatase C-Reactive Protein Total Protein Albumin CSF Albumin 10 L Topiramate 10.5 HSV I DNA Quant (PCR) Negative HSV II DNA Quant (PCR) Negative 12/25/19 12/29/19 12/29/19 06:25 07:18 07:18 WBC RBC Hgb Hct MCV MCH MCHC RDW Plt Count MPV ESR 69 H Sodium 138 Potassium 4.0 Chloride 110 H Carbon Dioxide 20 L Anion Gap 8 BUN 12.6 Creatinine 0.5 L Est GFR (CKD-EPI)AfAm 154.81 Est GFR (CKD-EPI)NonAf 133.57 Random Glucose 94 Calcium 8.7 Total Bilirubin 0.2 AST 9 L ALT 21 Alkaline Phosphatase 52 C-Reactive Protein 1.1 H Total Protein 6.8 Albumin 3.3 L CSF Albumin Topiramate 2.7 HSV I DNA Quant (PCR) HSV II DNA Quant (PCR) 12/29/19 07:18 WBC 6.3 RBC 4.02 Hgb 11.9 Hct 35.4 MCV 88.0 MCH 29.6 MCHC 33.6 RDW 13.7 Plt Count 235 MPV 9.3 ESR Sodium Potassium Chloride Carbon Dioxide Anion Gap BUN Creatinine Est GFR (CKD-EPI)AfAm Est GFR (CKD-EPI)NonAf Random Glucose Calcium Total Bilirubin AST ALT Alkaline Phosphatase C-Reactive Protein Total Protein Albumin CSF Albumin Topiramate HSV I DNA Quant (PCR) HSV II DNA Quant (PCR) Active Medications Generic Name Dose Route Start Last Admin Trade Name Freq PRN Reason Stop Dose Admin Heparin Sodium (Porcine) 5,000 unit 12/27/19 22:00 12/29/19 06:36 Heparin - SQ 5,000 unit TID WALTER Administration Ceftriaxone Sodium 2 gm/ 100 mls @ 100 mls/hr 12/26/19 21:00 12/28/19 23:03 Dextrose IVPB 100 mls/hr DAILY@2100 WALTER Administration Protocol Clindamycin Phosphate 600 mg in 50 mls @ 100 mls/hr 12/26/19 18:00 12/29/19 09:05 Cleocin 600 Mg Premix Ivpb - IVPB 100 mls/hr Q8H-IV WALTER Administration Protocol Levetiracetam 750 mg 12/26/19 22:00 12/29/19 09:05 Keppra Injection - IVPB 750 mg BID WALTER Administration Lorazepam 1 mg 12/26/19 17:27 Ativan Injection - IVPUSH Q6H PRN FPR SEIZURES Ondansetron HCl 4 mg 12/26/19 17:27 Zofran Injection IVPUSH Q4H PRN NAUSEA AND/OR VOMITING Oxcarbazepine 600 mg 12/27/19 10:00 12/29/19 09:04 Trileptal PO 600 mg DAILY WALTER Administration Oxcarbazepine 900 mg 12/26/19 22:00 12/28/19 23:28 Trileptal PO 900 mg HS WALTER Administration Pantoprazole Sodium 40 mg 12/29/19 10:00 12/29/19 09:04 Protonix - PO 40 mg DAILY WALTER Administration Silver Sulfadiazine 1 applic 12/26/19 10:00 12/29/19 09:05 Silvadene - TP 1 applic DAILY WALTER Administration Topiramate 100 mg 12/26/19 22:00 12/29/19 09:04 Topamax - PO 100 mg BID WALTER Administration ASSESSMENT/PLAN: 24 y/o F PMH epilepsy presented to the ED c/o of right foot wounds 2/2 to dropping hot boiling water on herself is admitted for sepsis vs meningitis r/o #Sepsis likely 2/2 RLE cellulitis Seizure precautions EEG ordered- pending results ECHO: no evidence of vegetation or masses, but c/o r/o endocarditis TANNA, Chlam/GC ordered EBV- Ig>600 RA factor- > 16.3 Wound care consulted-- Dr. Guzman- pending Podiatry- discussed with Dr. Ramon- recom Silvadine dressing changes daily- f/ u at wound clinic at [facility] Podiatry will come and reassess pt's wound Discussed with Dr. Lane- consult appreciated. Chest CT- .2 cm RUL nodule- will need to f/u with CT in 3 month Ceftriaxone + Clindamycin day #5 esr- elevated- 69 CRP elevated- 1.1 Discussed w/ ID, pt will need longer inpt Abx treatment. #Epilepsy seizure & fall precautions keppra levels- 82 elevated On Keppra, oxycarbazepine and toperimate #Hypokalemia KCl repletion #Low TSH Free T4 normal T3 60- low #N/v bilious vomit- resolved Protonix 40 IV Zofran 4 mg now- if still nauseous can icnrease to Zofran 8mg, if still nauseous consider Reglan. Abd CT- shows small fluid in the cul-de sac likely physiologic #FEN replete lytes as needed Regular diet #DVT PPX #Dispo: cont abx, cont keppra, f/u podiatry Visit type - Emergency Visit Emergency Visit: Yes ED Registration Date: 12/24/19 Care time: The patient presented to the Emergency Department on the above date and was hospitalized for further evaluation of their emergent condition. - New Patient This patient is new to me today: Yes Date on this admission: 12/30/19 - Critical Care Critical Care patient: No - Discharge Referral Referred to [facility] Med P.C.: No ATTENDING PHYSICIAN STATEMENT I saw and evaluated the patient. I reviewed the resident's note and discussed the case with the resident. I agree with the resident's findings and plan as documented. SUBJECTIVE: OBJECTIVE: ASSESSMENT AND PLAN:
--- NOTE | 2019-12-29 13:34 | PN ---
Teaching Attending Note Name of Resident: John Mclean ATTENDING PHYSICIAN STATEMENT I saw and evaluated the patient. I reviewed the resident's note and discussed the case with the resident. I agree with the resident's findings and plan as documented. SUBJECTIVE: Feeling better. No headache/fever/chills/rash. Pain adequately controlled. OBJECTIVE: Fever resolved, Tmax 99.4. Hemodynamically stable Last Vital Signs Temp Pulse Resp BP Pulse Ox 98.4 F 86 18 111/62 97 12/29/19 10:00 12/29/19 10:00 12/29/19 10:00 12/29/19 10:12/28/19 21:00 HEENT: Atraumatic, Normocephalic. HEART: S1, S2, RRR LUNGS: Clear to auscultation ABDOMEN: Soft, non-tender, non-distended, normal BS EXTREMITIES: No edema. Multiple wounds R lateral malleolus and dorsal ankle area wit some purulent discharge, no surrounding erythema. Right great toe blister and R lateral foot plantar wound with serous drainage. Laboratory Results - last 24 hr 12/24/19 12/24/19 12/24/19 13:15 13:28 19:30 WBC RBC Hgb Hct MCV MCH MCHC RDW Plt Count MPV ESR Sodium Potassium Chloride Carbon Dioxide Anion Gap BUN Creatinine Est GFR (CKD-EPI)AfAm Est GFR (CKD-EPI)NonAf Random Glucose Calcium Total Bilirubin AST ALT Alkaline Phosphatase C-Reactive Protein Total Protein Albumin CSF Albumin 10 L Topiramate 10.5 HSV I DNA Quant (PCR) Negative HSV II DNA Quant (PCR) Negative 12/25/19 12/29/19 12/29/19 06:25 07:18 07:18 WBC RBC Hgb Hct MCV MCH MCHC RDW Plt Count MPV ESR 69 H Sodium 138 Potassium 4.0 Chloride 110 H Carbon Dioxide 20 L Anion Gap 8 BUN 12.6 Creatinine 0.5 L Est GFR (CKD-EPI)AfAm 154.81 Est GFR (CKD-EPI)NonAf 133.57 Random Glucose 94 Calcium 8.7 Total Bilirubin 0.2 AST 9 L ALT 21 Alkaline Phosphatase 52 C-Reactive Protein 1.1 H Total Protein 6.8 Albumin 3.3 L CSF Albumin Topiramate 2.7 HSV I DNA Quant (PCR) HSV II DNA Quant (PCR) 12/29/19 07:18 WBC 6.3 RBC 4.02 Hgb 11.9 Hct 35.4 MCV 88.0 MCH 29.6 MCHC 33.6 RDW 13.7 Plt Count 235 MPV 9.3 ESR Sodium Potassium Chloride Carbon Dioxide Anion Gap BUN Creatinine Est GFR (CKD-EPI)AfAm Est GFR (CKD-EPI)NonAf Random Glucose Calcium Total Bilirubin AST ALT Alkaline Phosphatase C-Reactive Protein Total Protein Albumin CSF Albumin Topiramate HSV I DNA Quant (PCR) HSV II DNA Quant (PCR) Current Medications Generic Name Dose Route Start Last Admin Trade Name Freq PRN Reason Stop Dose Admin Heparin Sodium (Porcine) 5,000 unit 12/27/19 22:00 12/29/19 06:36 Heparin - SQ 5,000 unit TID WALTER Administration Ceftriaxone Sodium 2 gm/ 100 mls @ 100 mls/hr 12/26/19 21:00 12/28/19 23:03 Dextrose IVPB 100 mls/hr DAILY@2100 WALTER Administration Protocol Clindamycin Phosphate 600 mg in 50 mls @ 100 mls/hr 12/26/19 18:00 12/29/19 09:05 Cleocin 600 Mg Premix Ivpb - IVPB 100 mls/hr Q8H-IV WALTER Administration Protocol Levetiracetam 750 mg 12/26/19 22:00 12/29/19 09:05 Keppra Injection - IVPB 750 mg BID WALTER Administration Lorazepam 1 mg 12/26/19 17:27 Ativan Injection - IVPUSH Q6H PRN FPR SEIZURES Ondansetron HCl 4 mg 12/26/19 17:27 Zofran Injection IVPUSH Q4H PRN NAUSEA AND/OR VOMITING Oxcarbazepine 600 mg 12/27/19 10:00 12/29/19 09:04 Trileptal PO 600 mg DAILY WALTER Administration Oxcarbazepine 900 mg 12/26/19 22:00 12/28/19 23:28 Trileptal PO 900 mg HS WALTER Administration Pantoprazole Sodium 40 mg 12/29/19 10:00 12/29/19 09:04 Protonix - PO 40 mg DAILY WALTER Administration Silver Sulfadiazine 1 applic 12/26/19 10:00 12/29/19 09:05 Silvadene - TP 1 applic DAILY [facility]LER Administration Topiramate 100 mg 12/26/19 22:00 12/29/19 09:04 Topamax - PO 100 mg BID WALTER Administration Home Medications Medication Instructions Recorded Folic Acid - 400 mcg PO DAILY 12/23/19 Oxcarbazepine 600 mg PO DAILY 12/23/19 Oxcarbazepine 900 mg PO HS 12/23/19 Topiramate 100 mg PO BID 12/23/19 Multivitamin [One-Daily 1 tab PO DAILY 12/24/19 Multi-Vitamin] levETIRAcetam [Keppra -] 3 tab PO BID 12/24/19 ASSESSMENT AND PLAN: 24 year old female with history of Seizure Disorder, presented to the ED with fever and lethargy several days after sustaining right foot wounds secondary to miles from spilling boiling water on the foot. 1. Acute Metabolic encephalopathy sec to Sepsis (leukocytosis, tachycardia) secondary to group A Strep bacteremia from infected burn wounds with acute cellulitis of right foot s/p LP - CSF clear/negative Repeat Blood Cx negative TTE - normal. Continue IV Ceftriaxone, Clindamycin - further recommendations as per ID No intervention as per Podiatry - Silvadene dressings - further wound care as per Podiatry. 2. RUL pulmonary nodule, 0.2 cm - Outpatient follow-up 3. Seizure disorder - Continue Keppra, Topamax, Trileptal 4. Hypokalemia - Resolved DVT Px - Heparin SQ
--- NOTE | 2019-12-29 15:32 | PN ---
Progress Note (short form) - Note Progress Note: Podiatry F/U: Seen/evaluated at bedside NAD. Pain is well controlled and improved. She denies F/V/N/C/SOB/CP. Low grade temp to 99F. Otherwise vital signs stable. JONA: R foot: pedal pulses palpable, TG wnl, CFT brisk to all toes. There are no ischemic changes to the foot. The foot is warm and well perfused. There are multiple burn ulcers at lateral malleolus, lateral midfoot and plantar forefoot with underlying fibrotic base and superficial eschar, no probing to bone, no purulent drainage, no fluctuance, no streaking cellulitis, no signs of active infection. Minimal tenderness to palpation. Imp: 24 year old female with strep pyogenese bacteremia secondary to burn of the right foot 1. IV abx per infectious disease 2. Can switch to santyl daily to the right foot burn ulcers. Patient is amenable to performing dressing changes daily to the right foot ulcers. 3. Needs Rx surgical shoe for the right foot. 4. UPon discharge, will need f/u in wound healing center 01/05/20. [phone]. Heidi Phan DPM
--- NOTE | 2019-12-29 18:12 | PN ---
Progress Note (short form) - Note Progress Note: awake and alert no complaints Vital Signs Period Temp Pulse Resp BP Sys/Coleman Pulse Ox Last 24 Hr 98.4 F-99.4 F 86-111 18-18 102-113/55-69 97-97 cor-rrr llungs clear abd soft,nt ext no edema blister dying on the sole of the foot, ankle ulcer improved, blister on big tie CBC, BMP 12/29/19 07:18 12/29/19 07:18 Microbiology 12/23/19 23:27 Urine - Urine Clean Catch Urine Culture - Final 12/26/19 05:38 Blood - Peripheral Venous Blood Culture - Preliminary NO GROWTH OBTAINED AFTER 72 HOURS, INCUBATION TO CONTINUE FOR 2 DAYS. 12/26/19 05:45 Blood - Peripheral Venous Blood Culture - Preliminary NO GROWTH OBTAINED AFTER 72 HOURS, INCUBATION TO CONTINUE FOR 2 DAYS. 12/23/19 22:15 Blood - Peripheral Venous Blood Culture - Final NO GROWTH AFTER 5 DAYS INCUBATION 12/24/19 11:11 Foot - Right Heel Gram Stain - Final 12/24/19 11:11 Foot - Right Heel Wound Culture - Final Streptococcus Pyogenes Grp A Staphylococcus Aureus 12/24/19 22:00 Foot - Right Gram Stain - Final 12/24/19 22:00 Foot - Right Wound Culture - Final Staphylococcus Aureus Staphylococcus Coagulase Neg 12/24/19 13:15 Cerebral Spinal Fluid - Lumbar Puncture Gram Stain - Final 12/24/19 13:15 Cerebral Spinal Fluid - Lumbar Puncture CSF Culture - Final 12/23/19 22:15 Blood - Peripheral Venous Blood Culture - Final Streptococcus Pyogenes Grp A 12/24/19 14:57 Urine For Antigen Detection Legionella Antigen - Final 12/24/19 14:57 Urine For Antigen Detection Streptococcus pneumoniae Antigen (M - Final 12/24/19 13:15 Cerebral Spinal Fluid - Lumbar Puncture Streptococcus pneumoniae Antigen (M - Final HIV negative a/p group A strep bacteremia secondary to skin source, continue rocephin/clindamycin day #6 wound care for foot per podiatry wound culture MSSA and Group a strep repeat blood cultures negative seizure disorder- management per neurology plan to complete 7 days iv antibiotics, then home on po augmentin 875 bid for another 7 days with close wound care f/u please call back if needed
[2019-12-29] MEDS ORDERED: DEXTROSE 5%-WATER 100 ML IVPB ONE (22:20)
[2019-12-29] MEDS: CEFTRIAXONE 2 GM in DEXTROSE 5%-WATER 100 ML IVPB SCH (22:24)
[2019-12-29] MEDS: OXcarbazepine 300 MG/5 ML 250 ML BULK BOTTLE PO SCH (22:47)
[2019-12-30] MEDS: CLINDAMYCIN 600MG PREMIX IVPB 600 MG/50 ML BAG IVPB SCH ×2 (01:20→11:00)
[2019-12-30] MEDS: HEPARIN NA (PORCINE) 5,000 UNITS/ML 1ML VIAL SQ SCH ×2 (06:15→15:33)
--- NOTE | 2019-12-30 08:30 | PN ---
Progress Note (short form) - Note Progress Note: Neurology CHIEF COMPLAINT: right foot wound PCP: none HISTORY OF PRESENT ILLNESS: 24 y.o. F PMH epilepsy presented for RLE wound. Patient stated 2 weeks ago she was carrying a pot of boiling water when it fell onto her right foot. She has not been in significant pain but has been developing a wound on her R foot so decided to come to the hospital. Patient noted the wound has been increasing in size; she now has a wound on RLE lateral malleolus, RLE ventral 1st metatarsal, and a developing blister on the distal portion of her R great toe. She also has a small wound on the distal aspect of her left upper etxremity 1st digit. She has not taken any medications at home to help with the pain. Patient is able to ambulate. She is afebrile. CT of cervical spine performed and showed no evidence of acute fracture, compression deformities, subluxation, prevertebral soft tissue swelling. CT head completed and demonstrated no acute pathology. On 12/24, the patient suddenly and rapidly had a deterioration of mental status and I was contacted by the resident. Please see notes in the chart for further details, which had reviewed. She completed spinal tap which showed 0 WBC although there was increase in glucose but normal protein which does not seem to be consistent with any typical pattern of meningitis. Repeated CT of head also reviewed and showed no interval change compared to prior. Is being treated uunderlying infection and I reviewed notes from infectious disease specialist over the weekend, remains on IV antibiotics. No abnormal movements to suggest any seizures at this time. Was able to tell me date as well aslocation and now knows that she is at [facility]. She had trouble telling me the name of the president previously but was able to tell me this today. She states she feels well and without complaints. Per ID notes, patient to complete 7 day course of antibiotics and then be discharged on oral Augmentin. Active Medications Collagenase (Santyl -) 1 applic TP DAILY [facility]; Protocol Heparin Sodium (Porcine) (Heparin -) 5,000 unit SQ TID WALTER Last Admin: 12/30/19 06:15 Dose: 5,000 unit Ceftriaxone Sodium 2 gm/ (Dextrose) 100 mls @ 100 mls/hr IVPB DAILY@2100 WALTER; Protocol Last Admin: 12/29/19 22:24 Dose: 100 mls/hr Clindamycin Phosphate (Cleocin 600 Mg Premix Ivpb -) 600 mg in 50 mls @ 100 mls /hr IVPB Q8H-IV [facility]ALTER; Protocol Last Admin: 12/30/19 01:20 Dose: 100 mls/hr Levetiracetam (Keppra Injection -) 750 mg IVPB BID [facility] Last Admin: 12/29/19 22:26 Dose: 750 mg Lorazepam (Ativan Injection -) 1 mg IVPUSH Q6H PRN PRN Reason: FPR SEIZURES Ondansetron HCl (Zofran Injection) 4 mg IVPUSH Q4H PRN PRN Reason: NAUSEA AND/OR VOMITING Oxcarbazepine (Trileptal) 600 mg PO DAILY [facility] Last Admin: 12/29/19 09:04 Dose: 600 mg Oxcarbazepine (Trileptal) 900 mg PO HS [facility] Last Admin: 12/29/19 22:47 Dose: 900 mg Pantoprazole Sodium (Protonix -) 40 mg PO DAILY [facility] Last Admin: 12/29/19 09:04 Dose: 40 mg Silver Sulfadiazine (Silvadene -) 1 applic TP DAILY [facility] Last Admin: 12/29/19 09:05 Dose: 1 applic Topiramate (Topamax -) 100 mg PO BID [facility] Last Admin: 12/29/19 22:30 Dose: 100 mg PHYSICAL EXAMINATION Vital Signs Period Temp Pulse Resp BP Sys/Coleman Pulse Ox Last 24 Hr 98.0 F-99.1 F 86-111 18-18 93-113/57-66 97-98 GENERAL: Awake, alert, and fully oriented, in no acute distress. HEENT: NCAT sclera clear MMM LUNGS: Breath sounds equal, clear to auscultation bilaterally. No wheezes, and no crackles. No accessory muscle use. HEART: tachycardic, normal S1 and S2 without murmurs ABDOMEN: Soft, nontender, not distended, + bowel sounds MUSCULOSKELETAL: Full ROM all joints EXTREMITIES: 2+ pulses intact b/l UE & LE. On R lateral malleolus, 1-2x3cm and 1 - 1z2cm wound, clear centers w/ blackened tissue surrounding edges, non purulent , slightly bloody drainage. On ventral R 1st metatarsal, 2-3 ~0.5cm wounds, non purulent non bloody. R 1st toe distal blister. On L 1st UE digit, distal healing wound noted, non bloody non purulent. NEURO: Decr sensation to RLE @ dorsal foot,, cranial nerves intact, moves all extremities equally, finger-nose normal CBCD WBC 6.3 K/mm3 (4.0-10.0) 12/29/19 07:18 RBC 4.02 M/mm3 (3.60-5.2) 12/29/19 07:18 Hgb 11.9 GM/dL (10.7-15.3) 12/29/19 07:18 Hct 35.4 % (32.4-45.2) 12/29/19 07:18 MCV 88.0 fl (80-96) 12/29/19 07:18 MCHC 33.6 g/dl (32.0-36.0) 12/29/19 07:18 RDW 13.7 % (11.6-15.6) 12/29/19 07:18 Plt Count 235 K/MM3 (134-434) 12/29/19 07:18 MPV 9.3 fl (7.5-11.1) 12/29/19 07:18 CMP Sodium 138 mmol/L (136-145) 12/29/19 07:18 Potassium 4.0 mmol/L (3.5-5.1) 12/29/19 07:18 Chloride 110 mmol/L (98-107) H 12/29/19 07:18 Carbon Dioxide 20 mmol/L (21-32) L 12/29/19 07:18 Anion Gap 8 MMOL/L (8-16) 12/29/19 07:18 BUN 12.6 mg/dL (7-18) 12/29/19 07:18 Creatinine 0.5 mg/dL (0.55-1.3) L 12/29/19 07:18 Random Glucose 94 mg/dL (74-106) 12/29/19 07:18 Calcium 8.7 mg/dL (8.5-10.1) 12/29/19 07:18 Total Bilirubin 0.2 mg/dL (0.2-1) 12/29/19 07:18 AST 9 U/L (15-37) L 12/29/19 07:18 ALT 21 U/L (13-61) 12/29/19 07:18 Alkaline Phosphatase 52 U/L (45-117) 12/29/19 07:18 Total Protein 6.8 g/dl (6.4-8.2) 12/29/19 07:18 Albumin 3.3 g/dl (3.4-5.0) L 12/29/19 07:18 ASSESSMENT/PLAN: 24 y.o. F PMH epilepsy presented for RLE wound. Patient stated 2 weeks ago she was carrying a pot of boiling water when it fell onto her right foot. She has not been in significant pain but has been developing a wound on her R foot so decided to come to the hospital. Patient noted the wound has been increasing in size; she now has a wound on RLE lateral malleolus, RLE ventral 1st metatarsal, and a developing blister on the distal portion of her R great toe. She also has a small wound on the distal aspect of her left upper etxremity 1st digit. She has not taken any medications at home to help with the pain. Patient is able to ambulate. She is afebrile. CT of cervical spine performed and showed no evidence of acute fracture, compression deformities, subluxation, prevertebral soft tissue swelling. CT head completed and demonstrated no acute pathology. On 12/24, the patient suddenly and rapidly had a deterioration of mental status and I was contacted by the resident. Please see notes in the chart for further details, which had reviewed. She completed spinal tap which showed 0 WBC although there was increase in glucose but normal protein which does not seem to be consistent with any typical pattern of meningitis. RRepeated CT of head also reviewed and showed no interval change compared to prior. Is being treated uunderlying infection and I reviewed notes from infectious disease specialist over the weekend, remains on IV antibiotics. No abnormal movements to suggest any seizures at this time. Was able to tell me date as well aslocation and now knows that she is at [facility]. S She had trouble telling me the name of the president previously but was able to tell me this today. She states she feels well and without complaints. Per ID notes, patient to complete 7 day course of antibiotics and then be discharged on oral Augmentin. Continued infectious mgmt, follow-up ID recommendations. Continue current seizure regimen, continue close monitoring of neurologic status, maintain adequate by mouth and IV hydration.
[2019-12-30 08:33] LABS: HEMATOCRIT 36.7 % (32.4-45.2); HEMOGLOBIN 12.4 GM/dL (10.7-15.3); MCH 29.4 pg (25.7-33.7); MCHC 33.7 g/dl (32.0-36.0); MEAN CELL VOLUME 87.3 fl (80-96); MEAN PLT VOLUME 9.1 fl (7.5-11.1); PLATELET COUNT 266 K/MM3 (134-434); RBC 4.21 M/mm3 (3.60-5.2); RDW 13.9 % (11.6-15.6); WHITE BLOOD COUNT 5.2 K/mm3 (4.0-10.0)
[2019-12-30 08:56] LABS: ALBUMIN 3.4 g/dl (3.4-5.0); BILIRUBIN,TOTAL 0.1 mg/dL (0.2-1); BLOOD UREA NITROGEN 12.4 mg/dL (7-18); CALCIUM 8.7 mg/dL (8.5-10.1); CREATININE 0.5 mg/dL (0.55-1.3); MAGNESIUM 2.3 mg/dL (1.8-2.4)
[2019-12-30] MEDS ORDERED: COLLAGENASE CLOSTRIDIUM HIST. 30 GRAMS TUBE TP SCH (10:00)
--- NOTE | 2019-12-30 10:23 | DS ---
Physical Exam: SUBJECTIVE: Patient seen and examined. Mental status has significantly improved. Denies any seizures overnight. Denies f/c/sob/cp/abdominal pain. OBJECTIVE: Vital Signs Period Temp Pulse Resp BP Sys/Coleman Pulse Ox Last 24 Hr 98.0 F-99.1 F 93-111 18-18 93-113/57-66 98 PHYSICAL EXAM ENERAL: Awake, alert, and fully oriented. Pt is good state of health. Cooperative and conversational. LUNGS: CTAB HEART: tachycardic, normal S1 and S2 without murmurs ABDOMEN: Soft, nontender, not distended, + bowel sounds EXTREMITIES: 2+ pulses intact b/l UE & LE. On R lateral malleolus, 1-2x3cm and 1 - 1x2cm wound, clear centers w/ blackened tissue surrounding edges, non purulent , slightly bloody drainage. On ventral R 1st metatarsal, 2-3 ~0.5cm wounds, non purulent non bloody. R 1st toe distal blister. On L 1st UE digit, distal healing wound noted, non bloody non purulent. Wounds dressed. NEURO: PERRLA, CN2-12 intact. Strength weak overall, sensation intact LABS Laboratory Results - last 24 hr 12/28/19 12/29/19 12/30/19 07:40 07:18 07:35 WBC 5.2 RBC 4.21 Hgb 12.4 Hct 36.7 MCV 87.3 MCH 29.4 MCHC 33.7 RDW 13.9 Plt Count 266 MPV 9.1 ESR 69 H Sodium Potassium Chloride Carbon Dioxide Anion Gap BUN Creatinine Est GFR (CKD-EPI)AfAm Est GFR (CKD-EPI)NonAf Random Glucose Calcium Magnesium Total Bilirubin AST ALT Alkaline Phosphatase Total Protein Albumin Cycl Citrul Peptide IgG 8 12/30/19 07:35 WBC RBC Hgb Hct MCV MCH MCHC RDW Plt Count MPV ESR Sodium 139 Potassium 4.0 Chloride 110 H Carbon Dioxide 19 L Anion Gap 10 BUN 12.4 Creatinine 0.5 L Est GFR (CKD-EPI)AfAm 154.81 Est GFR (CKD-EPI)NonAf 133.57 Random Glucose 97 Calcium 8.7 Magnesium 2.3 Total Bilirubin 0.1 L AST 8 L ALT 19 Alkaline Phosphatase 53 Total Protein 7.0 Albumin 3.4 Cycl Citrul Peptide IgG HOSPITAL COURSE: Date of Admission:12/24/19 24 y/o F PMH epilepsy presented to the ED c/o of right foot wounds 2/2 to dropping hot boiling water on herself is admitted for Acute metabolic encephalopathy 2/2 to sepsis from right lower extremity wound vs meningitis r/ o. Pt on admission was febrile, tachycardic, leukocytosis with mental status changes. ECHO: no evidence of vegetation or masses, but c/o r/o endocarditis. R foot X-ray final read- soft tissue swelling, no signs of air. Pt was highly suspicious for meningitis but was r/o s/p LP that was normal. BCx grew Group A strep and wound grew group A strep + staph aureus as well. Pt was started on ceftriaxone, clinda, vanc, acyclovir initially. Which was then titrated down to just clinda and ceftriaxone. She was monitored in the ICU until improvement. Neuro had been consulted, who suggested this was a bacteremia w/ mental status changes. Infectious disease was consulted for appropriate abx regimen. Podiatry was consulted who suggested no intervention, but rather dressing changes with silvadine and santyl. Once pt was stable and symptoms had improved, she was moved to med surg and discharged on her home meds, Keppra 500 BID, oxycarbazepine 600, 900 and toperimate 100 BID. Her abx was transitioned to Augmentin for additional 7 days. Pt was also given further wound care as per Podiatry, at Dr. Arriaga's office - appt set up for 01/05/20 and Surgical shoe ordered for R foot and given. She was given referral for pulmonary for Chest CT- .2 cm RUL nodule- will need to f/u with CT in 3 month, rag production workerBart and [facility] clinic. LP done- CSF cultures negative for meningitis R foot X-ray final read- soft tissue swelling, no signs of air. L hand XR- no acute findings Chest CT- .2 cm RUL nodule- will need to f/u with CT in 3 month ECHO: no evidence of vegetation or masses, but c/o r/o endocarditis Abd CT- shows small fluid in the cul-de sac likely physiologic Date of Discharge: 12/30/19 Minutes to complete discharge: 40 Discharge Summary Problems reviewed: Yes Reason For Visit: CELLULITIS Condition: Improved - Instructions Diet, Activity, Other Instructions: You were admitted to the hospital for burn wounds and changes in your mental status While you were in the hospital, we evaluated you with lab work, blood work, imaging including CAT scan of your head and Chest. You also underwent procedures including a lumbar puncture. We found that your symptoms were caused by an infection in your blood. We treated you with medications and your symptoms improved significantly. To complete the treatment of your infection, please take the following medications as prescribed, Augmentin 875 twice a day for 7 more days starting tomorrow. While you were here, the CAT scan of your Chest showed a nodule (.2 cm), which will need to be followed up with a repeat CAT scan of your chest in 3 months. Please follow up with the yeast culture developer. You will also need to follow up at the [facility] wound care clinic for your burn wounds on your legs. Dr. Forbes, the Clinical Social Work Aide has set up an appointment for you on 01/05/20. Please call [phone] at the [facility] wound clinic to confirm the appointment. Instructions for your wounds: Please keep your Wound clean and dry Avoid wetting the areas, especially during showering. You may wrap it in plastic wraps to keep it from getting wet Please continue daily dressing changes as instructed by Dr. Forbes Please apply Santyl ointment/topical cream to your wounds while dressing them We have also provided for you a surgical shoe that you must wear daily to prevent worsening of your wound. Please take all your medications as prescribed Please follow up with Dr. Forbes at the wound care clinic as scheduled Please follow up with the [facility] Manager we have provided for you, Dr. Nunez , within 1 week for re-evaluation of your nodule. Please follow up with your primary care physician within 1 week Return to the emergency room, if you experience worsening of your symptoms, chest pain, abdominal pain or any worsening of your condition. Referrals: Rikki Anguiano MD [Staff Physician] - 1 Week Michael Phan MD [Staff Physician] - 1 Week (will need f/u in wound healing center 01/05/20. [phone].) Maynor Nunez MD [Staff Physician] - 1 Week Disposition: HOME - Home Medications Comprehensive Discharge Medication List: Ambulatory Orders Folic Acid - 400 mcg PO DAILY 12/23/19 Oxcarbazepine 600 mg PO DAILY 12/23/19 Oxcarbazepine 900 mg PO HS 12/23/19 Topiramate 100 mg PO BID 12/23/19 Multivitamin [One-Daily Multi-Vitamin] 1 tab PO DAILY 12/24/19 levETIRAcetam [Keppra -] 3 tab PO BID 12/24/19 Amoxicillin/Potassium Clav [Augmentin 875-125 Tablet] 1 each PO BID #14 tablet 12/30/19 Collagenase Clostridium Hist. [Santyl] 1 applic TP DAILY #1 applic 12/30/19 This patient is new to me today: Yes Date on this admission: 12/31/19 Emergency Visit: Yes ED Registration Date: 12/24/19 Care time: The patient presented to the Emergency Department on the above date and was hospitalized for further evaluation of their emergent condition. Critical Care patient: No - Discharge Referral Referred to [facility] Med [facility].C.: No ATTENDING PHYSICIAN STATEMENT I saw and evaluated the patient. I reviewed the resident's note and discussed the case with the resident. I agree with the resident's findings and plan as documented. SUBJECTIVE: OBJECTIVE: ASSESSMENT AND PLAN:
[2019-12-30] MEDS ORDERED: PT OWN MED DRAWER 7, Y5N ONE ×2 (10:52→11:04)
[2019-12-30] MEDS: OXcarbazepine 300 MG/5 ML UNIT DOSE CUPS PO SCH (10:59)
[2019-12-30] MEDS: levETIRAcetam 500 MG/5 ML INJECTION VIAL IVPB SCH (11:00)
[2019-12-30] MEDS: PANTOPRAZOLE 40 MG TABLET PO SCH (11:00)
[2019-12-30] MEDS: SILVER SULFADIAZINE 1% TOP CREAM 50 GM JAR TP SCH (11:05)
[2019-12-30] MEDS: TOPIRAMATE 100 MG TABLET PO SCH (11:05)
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
[2019-12-30 15:23] VITALS: BP 108/64; PULSE 105; TEMP 98.5
== END 2019-12-30 18:49 | disposition home or self-care (01) | DRG 720 ==
LOC: JER 18:47 → JERBED 12-24 01:00 → JICU 12-24 18:46 → J5S 12-26 17:31
PROVIDERS: ADMIT Internal Medicine
PROC: 009U3ZZ Drainage of Spinal Canal, Percutaneous Approach (ICD-10-PCS; principal; 2019-12-23)
PROC: B01BZZZ Fluoroscopy of Spinal Cord (ICD-10-PCS; 2019-12-23)
DX: A40.0 Sepsis due to streptococcus, group A (principal); G93.41 Metabolic encephalopathy; L03.115 Cellulitis of right lower limb; G40.909 Epilepsy, unspecified, not intractable, without status epilepticus; E87.6 Hypokalemia; R41.82 Altered mental status, unspecified; R91.1 Solitary pulmonary nodule; R00.0 Tachycardia, unspecified; D72.829 Elevated white blood cell count, unspecified; T25.321A Burn of third degree of right foot, initial encounter; E86.0 Dehydration; R11.10 Vomiting, unspecified; X12.XXXA Contact with other hot fluids, initial encounter; Y93.89 Activity, other specified; Y92.89 Other specified places as the place of occurrence of the external cause
CPT/HCPCS: 36415; 36600; 70450-TC; 71045-TC-FY; 71260-TC; 72125-TC; 73130-TC-LT-FY; 73630-TC-RT-FY; 74177-TC; 80048; 80053; 80177; 80201; 80307; 81003; 82042; 82140; 82438; 82803; 82945; 83605; 83615; 83690; 83735; 84100; 84157; 84439; 84443; 84480; 84703; 85025; 85027; 85651; 86038; 86140; 86200; 86431; 86593; 86665; 86803; 87040; 87070; 87086; 87186; 87205; 87389; 87529; 87804; 87899; 90715; 93005; 93010; 93306-TC; 95816; 99285-25; J0131; J1100; J1644; J7030; Q9967

== ENCOUNTER 2020-01-05 10:13 | Emergency (ER) | payer OTHER ==
[2020-01-05 10:38] VITALS: BMI 25.6
--- NOTE | 2020-01-05 10:59 | PDOC ---
History of Present Illness - General Chief Complaint: Lightheaded Stated Complaint: SEIZURE Time Seen by Provider: 01/05/20 10:44 - History of Present Illness Initial Comments: Tasha Jensen is a 24 y/o female with reported PMH significant for epilepsy and admission for altered mental status, presenting today with generalized tonic clonic seizure. Per EMS, she was at her son's doctor's office when she fell to the ground and started having seizure activity. Unsure how long the episodes lasted. She has known epilepsy and is on Keppra, which she took today. 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 Pt currently on augmentin. Denies tongue biting. Denies urinary incontinence. Denies headache/dizziness. Denies chest pain/shortness of breath. Past History - Past Medical History Allergies/Adverse Reactions: Allergies Allergy/AdvReac Type Severity Reaction Status Date / Time No Known Allergies Allergy Verified 01/05/20 10:38 Home Medications: Ambulatory Orders Folic Acid - 400 mcg PO DAILY 12/23/19 Oxcarbazepine 600 mg PO DAILY 12/23/19 Oxcarbazepine 900 mg PO HS 12/23/19 Topiramate 100 mg PO BID 12/23/19 Multivitamin [One-Daily Multi-Vitamin] 1 tab PO DAILY 12/24/19 levETIRAcetam [Keppra -] 3 tab PO BID 12/24/19 Amoxicillin/Potassium Clav [Augmentin 875-125 Tablet] 1 each PO BID #14 tablet 12/30/19 Collagenase Clostridium Hist. [Santyl] 1 applic TP DAILY #1 applic 12/30/19 Anemia: No Asthma: No Cancer: No Cardiac Disorders: No CVA: No COPD: No CHF: No Dementia: No Diabetes: No GI Disorders: No Disorders: No HTN: No Hypercholesterolemia: No Liver Disease: No Seizures: Yes Thyroid Disease: No - Surgical History Abdominal Surgery: No Appendectomy: No Cardiac Surgery: No Cholecystectomy: No Lung Surgery: No Neurologic Surgery: No Orthopedic Surgery: No - Psycho Social/Smoking Cessation Hx Smoking History: Never smoked Hx Alcohol Use: No Drug/Substance Use Hx: No Substance Use Type: None Review of Systems - Review of Systems Able to Perform ROS?: No Comments:: GENERAL/CONSTITUTIONAL: No fever or chills. No weakness._ HEAD, EYES, EARS, NOSE AND THROAT: No change in vision. No change in hearing. No sore throat._ CARDIOVASCULAR: No chest pain or shortness of breath_ RESPIRATORY: Denies cough, hemoptysis_ GASTROINTESTINAL: No nausea, vomiting, diarrhea or constipation._ GENITOURINARY: No dysuria, frequency, or change in urination._ MUSCULOSKELETAL: No joint or muscle swelling or pain. No neck or back pain._ SKIN: No rash_ NEUROLOGIC: No headache, vertigo, loss of consciousness, or change in strength/ sensation._ ENDOCRINE: No increased thirst. No abnormal weight change_ HEMATOLOGIC/LYMPHATIC: No anemia, easy bleeding, or history of blood clots._ ALLERGIC/IMMUNOLOGIC: No hives or skin allergy._ *Physical Exam - Vital Signs Last Vital Signs Temp Pulse Resp BP Pulse Ox 98.1 F 97 H 16 111/66 98 01/05/20 10:34 01/05/20 10:34 01/05/20 10:34 01/05/20 10:34 01/05/20 10:34 - Physical Exam GENERAL: Awake, alert, and oriented to person/place/time, in no acute distress_ HEAD: No signs of trauma, normocephalic, atraumatic _ EYES: PERRLA, EOMI, sclera anicteric, conjunctiva clear_ ENT: Hearing grossly normal, nares patent, oropharynx clear without exudates. No uvular deviation. Moist mucosa. No tongue lacerations. NECK: Normal ROM, supple, no lymphadenopathy, JVD, or masses_ LUNGS: No distress, speaks in full sentences, clear to auscultation bilaterally _ HEART: Regular rate and rhythm, normal S1 and S2, no murmurs appreciated, peripheral pulses normal and equal bilaterally._ ABDOMEN: Soft, nontender, normoactive bowel sounds. No guarding, no rebound. No masses_ EXTREMITIES: Normal inspection, Normal range of motion, no edema. No clubbing or cyanosis_ NEUROLOGICAL: Mental status: A/Ox3 CN II-XII tested and intact. Sensation intact to sharp/dull differentiation in all extremities. Motor: Normal tone and bulk. No abnormal movements appreciated. No pronator drift. Strength tested and 5/5 in bilateral wrist flexion/extension, elbow flexion/extension, shoulder abduction, straight leg raise, knee flexion/ extension, ankle dorsiflexion/plantarflexion. Patient ambulates with a steady gait. Coordination: Finger to nose and heel to devlin testing intact bilaterally. SKIN: Warm, Dry, normal turgor, no rashes or lesions noted_ ED Treatment Course - LABORATORY CBC & Chemistry Diagram: 01/05/20 11:50 01/05/20 11:50 Medical Decision Making - Medical Decision Making 01/05/20 11:05 24F hx of epilepsy BIBEMS presenting with witnessed seizure that she does not remember. -cbc, cmp, keppra level -ua, ucx 01/05/20 12:33 Called [facility]. Pt is on Keppra 750 mg x2 BID. Oxcarbazepine 600 mg in the AM and 900 mg in the PM. Topamax 100mg BID. 01/05/20 12:42 D/w Dr. Arora, pt's neurologist. States that the pt is often non compliant with medications and does not show up for appointments. Her staff has called the pharmacy multiple times to confirm she is picking up her medications. Reports that when she is compliant, she has been seizure free for 6 months. 01/05/20 15:15 Pt reassessed. Reports feeling much improved. Plan to d/c home with neuro f/u. D /w pt the importance of medication compliance and follow up. All questions answered. Return precautions given. Pt verbalized understanding and agreement with plan. Pt has filled her AED medications at home. Labs reviewed. Laboratory Last Values WBC 4.8 K/mm3 (4.0-10.0) 01/05/20 11:50 RBC 3.94 M/mm3 (3.60-5.2) 01/05/20 11:50 Hgb 11.7 GM/dL (10.7-15.3) 01/05/20 11:50 Hct 35.1 % (32.4-45.2) 01/05/20 11:50 MCV 89.1 fl (80-96) 01/05/20 11:50 MCH 29.7 pg (25.7-33.7) 01/05/20 11:50 MCHC 33.3 g/dl (32.0-36.0) 01/05/20 11:50 RDW 14.1 % (11.6-15.6) 01/05/20 11:50 Plt Count 279 K/MM3 (134-434) 01/05/20 11:50 MPV 9.2 fl (7.5-11.1) 01/05/20 11:50 Absolute Neuts (auto) 3.0 K/mm3 (1.5-8.0) 01/05/20 11:50 Neutrophils % 62.3 % (42.8-82.8) D 01/05/20 11:50 Lymphocytes % 24.4 % (8-40) D 01/05/20 11:50 Monocytes % 8.1 % (3.8-10.2) 01/05/20 11:50 Eosinophils % 4.3 % (0-4.5) 01/05/20 11:50 Basophils % 0.9 % (0-2.0) 01/05/20 11:50 Nucleated RBC % 0 % (0-0) 01/05/20 11:50 Sodium 141 mmol/L (136-145) 01/05/20 11:50 Potassium 4.4 mmol/L (3.5-5.1) 01/05/20 11:50 Chloride 111 mmol/L (98-107) H 01/05/20 11:50 Carbon Dioxide 23 mmol/L (21-32) 01/05/20 11:50 Anion Gap 7 MMOL/L (8-16) L 01/05/20 11:50 BUN 11.9 mg/dL (7-18) 01/05/20 11:50 Creatinine 0.5 mg/dL (0.55-1.3) L 01/05/20 11:50 Est GFR (CKD-EPI)AfAm 154.81 01/05/20 11:50 Est GFR (CKD-EPI)NonAf 133.57 01/05/20 11:50 Random Glucose 89 mg/dL (74-106) 01/05/20 11:50 Calcium 8.3 mg/dL (8.5-10.1) L 01/05/20 11:50 Total Bilirubin 0.2 mg/dL (0.2-1) 01/05/20 11:50 AST 16 U/L (15-37) 01/05/20 11:50 ALT 27 U/L (13-61) 01/05/20 11:50 Alkaline Phosphatase 54 U/L (45-117) 01/05/20 11:50 Total Protein 7.0 g/dl (6.4-8.2) 01/05/20 11:50 Albumin 3.6 g/dl (3.4-5.0) 01/05/20 11:50 Urine Color Yellow 01/05/20 11:50 Urine Appearance Clear 01/05/20 11:50 Urine pH 7.5 (5.0-8.0) D 01/05/20 11:50 Ur Specific [place] 1.022 (1.010-1.035) 01/05/20 11:50 Urine Protein Negative (NEGATIVE) 01/05/20 11:50 Urine Glucose (UA) Negative (NEGATIVE) 01/05/20 11:50 Urine Ketones Negative (NEGATIVE) 01/05/20 11:50 Urine Blood 2+ (NEGATIVE) H 01/05/20 11:50 Urine Nitrite Negative (NEGATIVE) 01/05/20 11:50 Urine Bilirubin Negative (NEGATIVE) 01/05/20 11:50 Urine Urobilinogen 0.2 mg/dL (0.2-1.0) 01/05/20 11:50 Ur Leukocyte Esterase Negative (NEGATIVE) 01/05/20 11:50 Urine WBC (Auto) 1 /hpf (0-5) 01/05/20 11:50 Urine RBC (Auto) 3 /hpf (0-4) 01/05/20 11:50 Urine Casts (Auto) 2 /lpf (0-8) 01/05/20 11:50 U Epithel Cells (Auto) 3.8 /HPF (0-5/HPF) 01/05/20 11:50 Urine Bacteria (Auto) 0.8 /hpf (NEGATIVE) 01/05/20 11:50 Discharge - Discharge Information Problems reviewed: Yes Clinical Impression/Diagnosis: Seizure Condition: Stable Disposition: HOME - Admission No - Follow up/Referral Referrals: Meghann Arora MD [Non Staff, Medical] - - Patient Discharge Instructions Patient Printed Discharge Instructions: DI for Seizure Disorder -- Adult Additional Instructions: Please make a follow up appointment with Dr. Arora. Please continue taking your anti seizure medications as prescribed: Keppra 750 mg x2 BID Oxcarbazepine 600 mg in the AM and 900 mg in the PM Topamax 100 mg BID - Post Discharge Activity
--- NOTE | 2020-01-05 12:25 | PDOC ---
Attending Attestation - Resident Resident Name: Palomo Chung - ED Attending Attestation I have performed the following: I have examined & evaluated the patient, The case was reviewed & discussed with the resident, I agree w/resident's findings & plan - HPI HPI: 01/05/20 12:23 24-year-old female with history of seizures maintained on Keppra recent admission for cellulitis/encephalopathy likely secondary to sepsis presents from her son's conservation science officer's office after witnessed seizure. Patient had aura followed by generalized tonic-clonic seizure that lasted less than 30 seconds, brief postictal period, now asymptomatic. Reports compliance with her Keppra, denies any other complaints, has 2 doses left of her antibiotic, denies any fevers or chills. - Physicial Exam PE: 01/05/20 12:24 Vitals are within normal limits, afebrile Seated comfortably seated in stretcher speaking full sentences Exam is atraumatic, pupils are equal round reactive to light, extraocular movements are intact Neck is supple without tenderness Heart is regular, lungs are clear, abdomen benign Neurological exam is nonfocal No right knee tenderness or effusion, full range of motion with full strength. - Medical Decision Making 01/05/20 12:24 24-year-old female with history of seizures presents with typical generalized tonic-clonic seizure, now resolved with normal neurological exam and no evidence of acute infectious process. Send labs including Keppra level Dose additional Keppra Reassess and disposition accordingly, will discuss plan with patient's neurologist
[2020-01-05 12:51] LABS: BASO % 0.9 % (0-2.0); EOS % 4.3 % (0-4.5); HEMATOCRIT 35.1 % (32.4-45.2); HEMOGLOBIN 11.7 GM/dL (10.7-15.3); LYMPH % 24.4 % (8-40); MCH 29.7 pg (25.7-33.7); MCHC 33.3 g/dl (32.0-36.0); MEAN CELL VOLUME 89.1 fl (80-96); MEAN PLT VOLUME 9.2 fl (7.5-11.1); MONO % 8.1 % (3.8-10.2); NEUT % 62.3 % (42.8-82.8); PLATELET COUNT 279 K/MM3 (134-434); RBC 3.94 M/mm3 (3.60-5.2); RDW 14.1 % (11.6-15.6); WHITE BLOOD COUNT 4.8 K/mm3 (4.0-10.0)
[2020-01-05] MEDS ORDERED: levETIRAcetam 500 MG TABLET (FP) PO ONE ×2 (12:52→13:13)
[2020-01-05] MEDS ORDERED: TOPIRAMATE 100 MG TABLET PO ONE (12:53)
[2020-01-05] MEDS ORDERED: OXcarbazepine 300 MG TABLET (UD) PO ONE (12:53)
[2020-01-05] MEDS ORDERED: OXcarbazepine 300 MG TABLET (UD) PO SCH (13:00)
[2020-01-05] MEDS ORDERED: TOPIRAMATE 25 MG TABLET (FP) ONE (13:13)
[2020-01-05 13:19] LABS: ALBUMIN 3.6 g/dl (3.4-5.0); BILIRUBIN,TOTAL 0.2 mg/dL (0.2-1); BLOOD UREA NITROGEN 11.9 mg/dL (7-18); CALCIUM 8.3 mg/dL (8.5-10.1); CREATININE 0.5 mg/dL (0.55-1.3); POTASSIUM 4.4 mmol/L (3.5-5.1)
[2020-01-05 13:24] LABS: EPI CELLS 3.8 /HPF (0-5/HPF); HYALINE CASTS 2 /lpf (0-8); PH,URINE 7.5 (5.0-8.0); URINE APPEARANCE CLEAR; URINE BACTERIA 0.8 /hpf (NEGATIVE); URINE BILIRUBIN NEGATIVE (NEGATIVE); URINE COLOR YELLOW; URINE GLUCOSE (UA) NEGATIVE (NEGATIVE); URINE KETONE NEGATIVE (NEGATIVE); URINE LEUK ESTERASE NEGATIVE (NEGATIVE); URINE NITRITE NEGATIVE (NEGATIVE); URINE PROTEIN NEGATIVE (NEGATIVE); URINE RBC 3 /hpf (0-4); URINE UROBILINOGEN 0.2 mg/dL (0.2-1.0); URINE WBC 1 /hpf (0-5)
[2020-01-05 15:38] VITALS: BP 95/64; PULSE 74; TEMP 97.8
== END 2020-01-05 15:35 | disposition home or self-care (01) ==
LOC: JER 10:13
DX: G40.909 Epilepsy, unspecified, not intractable, without status epilepticus (principal)
CPT/HCPCS: 36415; 80053; 80177; 81003; 85025; 87086; 99283-25

== ENCOUNTER 2023-01-21 17:55 | Emergency (ER) | payer OTHER ==
[2023-01-21 18:27] VITALS: BP 134/86; PULSE 93; RESP 16; TEMP 98.2; BMI 26.4
[2023-01-21] MEDS ORDERED: ACETAMINOPHEN 1000 MG/100 ML BAG IVPB ONE (20:34)
[2023-01-21] MEDS ORDERED: ACETAMINOPHEN INJECTION 100 ML IVPB ONE (20:35)
[2023-01-21] MEDS ORDERED: levETIRAcetam 500 MG/5 ML INJECTION VIAL IVPB ONE ×2 (20:43→20:46)
[2023-01-21 20:55] LABS: HEMATOCRIT 38.5 % (32.4-45.2); HEMOGLOBIN 12.9 GM/dL (10.7-15.3); MCH 28.9 pg (25.7-33.7); MCHC 33.5 g/dl (32.0-36.0); MEAN CELL VOLUME 86.3 fl (80-96); MEAN PLT VOLUME 9.4 fl (7.5-11.1); PLATELET COUNT 205 10^3/uL (134-434); RBC 4.46 M/mm3 (3.60-5.2); RDW 14.9 % (11.6-15.6)
[2023-01-21 21:18] LABS: ALBUMIN 3.7 g/dl (3.4-5.0); CALCIUM 9.4 mg/dL (8.5-10.1)
[2023-01-21 21:19] LABS: BLOOD UREA NITROGEN 11.4 mg/dL (7-18)
[2023-01-21 21:21] LABS: CREATININE 0.4 mg/dL (0.55-1.3)
[2023-01-21 21:23] LABS: BILIRUBIN,TOTAL 0.2 mg/dL (0.2-1)
== END 2023-01-22 00:07 | disposition home or self-care (01) ==
LOC: JER 17:55
PROC: 3E033NZ Introduction of Analgesics, Hypnotics, Sedatives into Peripheral Vein, Percutaneous Approach (ICD-10-PCS; principal; 2023-01-21)
PROC: 3E033GC Introduction of Other Therapeutic Substance into Peripheral Vein, Percutaneous Approach (ICD-10-PCS; 2023-01-21)
DX: R56.9 Unspecified convulsions (principal); R10.31 Right lower quadrant pain; K59.00 Constipation, unspecified
CPT/HCPCS: 36415; 74177-TC; 80053; 83690; 84703; 85027; 99285-25

== ENCOUNTER 2023-03-24 19:55 | Observation (INO) | payer OTHER ==
[2023-03-24 19:59] VITALS: BMI 32.1
[2023-03-24 21:05] LABS: BASO % 0.6 % (0-2.0); EOS % 4.5 % (0-4.5); HEMATOCRIT 39.8 % (32.4-45.2); HEMOGLOBIN 13.3 GM/dL (10.7-15.3); MCH 29.4 pg (25.7-33.7); MCHC 33.5 g/dl (32.0-36.0); MEAN CELL VOLUME 87.9 fl (80-96); MONO % 8.6 % (3.8-10.2); NEUT % 68.3 % (42.8-82.8); PLATELET COUNT 214 10^3/uL (134-434); RBC 4.53 M/mm3 (3.60-5.2); RDW 14.7 % (11.6-15.6); WHITE BLOOD COUNT 6.6 K/mm3 (4.0-10.0)
[2023-03-24 21:35] LABS: BLOOD UREA NITROGEN 13.9 mg/dL (7-18); CALCIUM 8.6 mg/dL (8.5-10.1); MAGNESIUM 2.1 mg/dL (1.8-2.4)
[2023-03-24 21:36] LABS: ALBUMIN 3.6 g/dl (3.4-5.0)
[2023-03-24 21:37] LABS: CREATININE 1.1 mg/dL (0.55-1.3); PHOSPHOROUS 3.6 mg/dL (2.5-4.9)
[2023-03-24 21:40] LABS: BILIRUBIN,TOTAL 0.1 mg/dL (0.2-1)
[2023-03-25] MEDS ORDERED: ACETAMINOPHEN 325 MG TABLET (FP) PO PRN (01:30)
[2023-03-25] MEDS ORDERED: LORazepam 2 MG/ML SDV VIAL IVPUSH PRN (01:36)
[2023-03-25] MEDS ORDERED: levETIRAcetam 500 MG TABLET (FP) PO ONE ×2 (01:58→02:08)
[2023-03-25] MEDS ORDERED: ACETAMINOPHEN 325 MG TABLET (FP) ONE (02:08)
[2023-03-25 04:09] VITALS: BP 106/55; PULSE 80; RESP 20; TEMP 98
[2023-03-25] MEDS ORDERED: levETIRAcetam 500 MG/5 ML INJECTION VIAL IVPB SCH (10:00)
== END 2023-03-25 08:14 | disposition left against medical advice (07) ==
LOC: JER 19:55 → JERBED 03-25 00:25 → J8W 03-25 02:56
PROVIDERS: ADMIT Internal Medicine; ATTEND Nurse Practitioner Acute Care
DX: G40.909 Epilepsy, unspecified, not intractable, without status epilepticus (principal); S09.90XA Unspecified injury of head, initial encounter; W22.01XA Walked into wall, initial encounter; Y93.89 Activity, other specified; Y92.410 Unspecified street and highway as the place of occurrence of the external cause; Z29.8 Encounter for other specified prophylactic measures
CPT/HCPCS: 36415; 70450-TC; 70486-TC; 80053; 80177; 80184; 82962; 83735; 84100; 84703; 85025; 86850; 86900; 86901; 93005; 93010; 99285-25; C9803-CS; G0378; U0003; U0005